=== PATIENT | female | born 1985 | race Caucasian/White ===

== ENCOUNTER 2022-05-24 11:42 | Emergency (ER) | payer MEDICAID ==
[~2022-05-24] VITALS: Ht 160 cm; Wt 91.4 kg
[2022-05-24] MEDS ORDERED: TRAZ-252 PO (12:21)
[2022-05-24] MEDS ORDERED: FAMO10TA50 PO (12:21)
[2022-05-24] MEDS ORDERED: ALBU2.5V10 INH (12:21)
[2022-05-24] MEDS ORDERED: PRAZ1CAP PO (12:21)
[2022-05-24] MEDS ORDERED: SERO1TAB3 PO (12:21)
[2022-05-24] MEDS ORDERED: CYMB1CAP4 PO (12:21)
[2022-05-24] MEDS ORDERED: KETOROLAC 30 MG/ML 1ML VIAL IV ONE (14:20)
[2022-05-24] MEDS ORDERED: ACETAMINOPHEN 500 MG TAB PO ONE (14:20)
[2022-05-24] MEDS ORDERED: NAPR-837 PO (15:34)
[2022-05-24 16:38] VITALS: BP 122/82
== END 2022-05-24 16:40 | disposition home or self-care (01) ==
LOC: EDBD 11:42 → M ED 11:42
DX: S69.91XA Unspecified injury of right wrist, hand and finger(s), initial encounter (principal); S70.02XA Contusion of left hip, initial encounter; S43.402A Unspecified sprain of left shoulder joint, initial encounter; W00.0XXA Fall on same level due to ice and snow, initial encounter; F17.200 Nicotine dependence, unspecified, uncomplicated; Z88.0 Allergy status to penicillin; Z88.8 Allergy status to other drugs, medicaments and biological substances; Z91.030 Bee allergy status; Z79.51 Long term (current) use of inhaled steroids; Z79.899 Other long term (current) drug therapy

== ENCOUNTER 2022-05-28 12:44 | Emergency (ER) | payer MEDICAID, OTHER ==
[~2022-05-28] VITALS: Ht 157.5 cm; Wt 93.9 kg
[~2022-05-28 12:44] MED LIST: ALBU2.5V10 INH; CYMB1CAP4 PO; FAMO10TA50 PO; NAPR-837 PO; PRAZ1CAP PO; SERO1TAB3 PO; TRAZ-252 PO
[2022-05-28] MEDS ORDERED: BACITRACIN OINTMENT 30GM TUBE TOP STA (17:23)
[2022-05-28] MEDS ORDERED: KETOROLAC 60MG 2ML VIAL IM ONE (17:25)
[2022-05-28] MEDS ORDERED: LIDOCAINE 5% (LIDODERM) PATCH TD ONE (17:25)
[2022-05-28] MEDS ORDERED: GNP650TA8 PO (17:55)
[2022-05-28] MEDS ORDERED: BACI500O8 TOP (17:55)
[2022-05-28] MEDS ORDERED: ASPE4PAD TOP (17:55)
[2022-05-28 18:06] VITALS: BP 129/75
== END 2022-05-28 18:26 | disposition home or self-care (01) ==
LOC: M ED 12:44
DX: S90.811A Abrasion, right foot, initial encounter (principal); M25.512 Pain in left shoulder; M25.552 Pain in left hip; W01.0XXA Fall on same level from slipping, tripping and stumbling without subsequent striking against object, initial encounter; F90.9 Attention-deficit hyperactivity disorder, unspecified type; F17.200 Nicotine dependence, unspecified, uncomplicated; F12.10 Cannabis abuse, uncomplicated; F32.A Depression, unspecified; Z88.0 Allergy status to penicillin; Z91.030 Bee allergy status; Z91.048 Other nonmedicinal substance allergy status; Z79.1 Long term (current) use of non-steroidal anti-inflammatories (NSAID); Z79.52 Long term (current) use of systemic steroids; Z79.899 Other long term (current) drug therapy

== ENCOUNTER 2022-05-31 16:56 | Inpatient (IN) | payer OTHER ==
[~2022-05-31] VITALS: Ht 160 cm; Wt 93.3 kg
[~2022-05-31 16:56] MED LIST changes: +ASPE4PAD TOP; +BACI500O8 TOP; +GNP650TA8 PO
[2022-05-31] MEDS ORDERED: diphenhydrAMINE 50MG CAP PO ONE (19:50)
[2022-05-31] MEDS ORDERED: ACETAMINOPHEN TAB 650MG DOSE (2X325MG) PO ONE (19:50)
[2022-05-31 20:02] LABS: HEMATOCRIT 44.8 % (36.0-47.0); HEMOGLOBIN 14.3 g/dl (12.0-15.5); MEAN CORPUSCULAR HEMOGLOBIN 29.8 pg (27.0-33.0); MEAN CORPUSCULAR HGB CONC 31.9 g/dl (32.0-36.5); MEAN CORPUSCULAR VOLUME 93.3 fl (80.0-96.0); PLATELET COUNT, AUTOMATED 228 10^3/uL (150-450); WHITE BLOOD COUNT 11.7 10^3/uL (4.0-10.0)
[2022-05-31 20:08] LABS: ETHYL ALCOHOL (ETHANOL) 0.003 % (0.000-0.010); HCG, SERUM QUALITATIVE NEGATIVE (NEGATIVE)
[2022-05-31 20:09] LABS: ACETAMINOPHEN LEVEL < 2.0 UG/ML (10.0-20.0)
[2022-05-31 20:10] LABS: ALKALINE PHOSPHATASE 70 U/L (46-116); ALT/SGPT 15 U/L (7.0-40); AST/SGOT 22 U/L (<34); BILIRUBIN,DIRECT < 0.1 MG/DL (<0.4); BILIRUBIN,TOTAL 0.4 MG/DL (0.3-1.2); BLOOD UREA NITROGEN 10 MG/DL (9-23); CALCIUM LEVEL 9.5 MG/DL (8.5-10.1); CARBON DIOXIDE LEVEL 28 MMOL/L (20-31); CHLORIDE LEVEL 104 MMOL/L (98-107); CREATININE FOR GFR 0.81 MG/DL (0.55-1.30); GLOMERULAR FILTRATION RATE > 60.0 (>60); GLUCOSE, FASTING 83 MG/DL (60-100); POTASSIUM SERUM 4.2 MMOL/L (3.5-5.1); SALICYLATE LEVEL < 3.0 MG/DL (<30); SODIUM LEVEL 139 MMOL/L (136-145); TOTAL PROTEIN 7.4 G/DL (5.7-8.2)
[2022-05-31 20:23] LABS: AMPHETAMINES LEVEL URINE NEGATIVE (NEGATIVE); BARBITURATES URINE NEGATIVE (NEGATIVE); BENZODIAZEPINES URINE NEGATIVE (NEGATIVE); COCAINE METABOLITE URINE NEGATIVE (NEGATIVE); METHADONE URINE NEGATIVE (NEGATIVE); OPIATES URINE NEGATIVE (NEGATIVE); PHENCYCLIDINE URINE NEGATIVE (NEGATIVE)
[2022-05-31 20:26] LABS: CANNABINOIDS URINE POSITIVE (NEGATIVE)
[2022-05-31 20:35] LABS: RSV AMPLIFICATION NEGATIVE (NEGATIVE)
[2022-05-31] MEDS: traZODone 100 MG TAB PO SCH (21:00)
[2022-05-31] MEDS: QUEtiapine FUMARATE 100 MG TAB PO SCH (21:00)
[2022-05-31] MEDS: PRAZOSIN 1 MG CAP PO SCH (21:00)
[2022-05-31] MEDS ORDERED: ALBU8.5H INH (21:21)
[2022-05-31] MEDS ORDERED: FAMO10TA52 PO (21:21)
[2022-05-31] MEDS ORDERED: DULO30CA47 PO (21:21)
[2022-05-31] MEDS ORDERED: QUET100T2 PO (21:21)
[2022-05-31] MEDS ORDERED: LIDO1PAD TOP (21:21)
[2022-05-31] MEDS ORDERED: HYDR50TA70 PO (21:23)
[2022-05-31] MEDS ORDERED: CLONI1TA PO (21:23)
[2022-05-31] MEDS ORDERED: HOME MED LIST COMPLETE! XX SCH (21:25)
[2022-05-31] MEDS ORDERED: med rec comment (21:25)
[2022-05-31] MEDS: hydrOXYzine 50 MG TAB PO SCH (22:00)
[2022-05-31] MEDS ORDERED: MAALOX 30 ML SUSP *UDC PO PRN (22:10)
[2022-05-31] MEDS ORDERED: ALBUTEROL 90 MCG/ACT 8GM HFA INHALER INH PRN (22:10)
[2022-05-31] MEDS ORDERED: MOM 30ML SUSPENSION UDC PO PRN (22:10)
[2022-05-31] MEDS ORDERED: OLANZapine ORAL DISINTEGRATING TAB 5MG PO PRN (22:10)
[2022-05-31] MEDS ORDERED: cloNIDine 0.1MG TABLET PO PRN (22:10)
[2022-05-31] MEDS ORDERED: traZODone 100 MG TAB PO PRN (22:10)
[2022-06-01 02:01] VITALS: BP 117/60
[2022-06-01] MEDS: hydrOXYzine 50 MG TAB PO SCH ×3 (05:47→21:31)
[2022-06-01] MEDS: DULoxetine 30MG CAPSULE (CYMBALTA) PO SCH (09:59)
[2022-06-01] MEDS: PANTOPRAZOLE 20 MG TAB PO SCH (09:59)
[2022-06-01] MEDS: NICOTINE 21MG/24HR 1 EA TRANSDERMAL TD SCH (09:59)
[2022-06-01] MEDS: LIDOCAINE 5% (LIDODERM) PATCH TOP SCH (10:04)
[2022-06-01] MEDS: NAPROXEN 250 MG TAB PO PRN (13:19)
[2022-06-01 14:29] LABS: ALBUMIN 3.3 G/DL (3.2-5.2); ALKALINE PHOSPHATASE 61 U/L (46-116); ALT/SGPT 12 U/L (7.0-40); AST/SGOT 15 U/L (<34); BILIRUBIN,TOTAL 0.5 MG/DL (0.3-1.2); BLOOD UREA NITROGEN 10 MG/DL (9-23); CALCIUM LEVEL 9.3 MG/DL (8.5-10.1); CARBON DIOXIDE LEVEL 28 MMOL/L (20-31); CHLORIDE LEVEL 108 MMOL/L (98-107); CREATININE FOR GFR 0.84 MG/DL (0.55-1.30); GLOMERULAR FILTRATION RATE > 60.0 (>60); GLUCOSE, FASTING 85 MG/DL (60-100); POTASSIUM SERUM 4.1 MMOL/L (3.5-5.1); SODIUM LEVEL 141 MMOL/L (136-145)
[2022-06-01 20:25] VITALS: BP 112/60
[2022-06-01] MEDS: traZODone 100 MG TAB PO SCH (21:00)
[2022-06-01] MEDS: PRAZOSIN 1 MG CAP PO SCH (21:31)
[2022-06-01] MEDS: QUEtiapine FUMARATE 100 MG TAB PO SCH (21:31)
[2022-06-02] MEDS: hydrOXYzine 50 MG TAB PO SCH ×3 (06:04→21:40)
[2022-06-02 06:06] VITALS: BP 101/63
[2022-06-02] MEDS: DULoxetine 30MG CAPSULE (CYMBALTA) PO SCH (08:18)
[2022-06-02] MEDS: PANTOPRAZOLE 20 MG TAB PO SCH (08:18)
[2022-06-02] MEDS: NICOTINE 21MG/24HR 1 EA TRANSDERMAL TD SCH (08:18)
[2022-06-02] MEDS: LIDOCAINE 5% (LIDODERM) PATCH TOP SCH (08:19)
[2022-06-02] MEDS: NAPROXEN 250 MG TAB PO PRN (12:23)
[2022-06-02 17:24] VITALS: BP 104/67
[2022-06-02] MEDS: PRAZOSIN 1 MG CAP PO SCH (21:40)
[2022-06-02] MEDS: QUEtiapine FUMARATE 100 MG TAB PO SCH (21:40)
[2022-06-02] MEDS: traZODone 100 MG TAB PO SCH (21:40)
[2022-06-03] MEDS: hydrOXYzine 50 MG TAB PO SCH ×3 (06:01→21:28)
[2022-06-03 06:18] VITALS: BP 106/55
[2022-06-03] MEDS: NICOTINE 21MG/24HR 1 EA TRANSDERMAL TD SCH (08:11)
[2022-06-03] MEDS: DULoxetine 30MG CAPSULE (CYMBALTA) PO SCH (08:13)
[2022-06-03] MEDS: PANTOPRAZOLE 20 MG TAB PO SCH (08:15)
[2022-06-03] MEDS: LIDOCAINE 5% (LIDODERM) PATCH TOP SCH (09:49)
[2022-06-03 16:38] VITALS: BP 106/57
[2022-06-03] MEDS: NAPROXEN 250 MG TAB PO PRN (18:13)
[2022-06-03] MEDS: PRAZOSIN 1 MG CAP PO SCH (20:26)
[2022-06-03] MEDS: traZODone 100 MG TAB PO SCH (20:27)
[2022-06-03] MEDS: QUEtiapine FUMARATE 100 MG TAB PO SCH (20:27)
[2022-06-03] MEDS: ACETAMINOPHEN TAB 650MG DOSE (2X325MG) PO PRN (21:28)
[2022-06-04] MEDS: hydrOXYzine 50 MG TAB PO SCH ×3 (05:39→22:25)
[2022-06-04 06:24] VITALS: BP 91/56
[2022-06-04] MEDS: NICOTINE 21MG/24HR 1 EA TRANSDERMAL TD SCH (07:56)
[2022-06-04] MEDS: DULoxetine 30MG CAPSULE (CYMBALTA) PO SCH (07:57)
[2022-06-04] MEDS: PANTOPRAZOLE 20 MG TAB PO SCH (07:57)
[2022-06-04] MEDS: LIDOCAINE 5% (LIDODERM) PATCH TOP SCH (07:57)
[2022-06-04] MEDS: NAPROXEN 250 MG TAB PO PRN (13:13)
[2022-06-04 16:10] VITALS: BP 108/77
[2022-06-04] MEDS: ACETAMINOPHEN TAB 650MG DOSE (2X325MG) PO PRN (19:24)
[2022-06-04] MEDS: QUEtiapine FUMARATE 100 MG TAB PO SCH (20:37)
[2022-06-04] MEDS: traZODone 100 MG TAB PO SCH (20:37)
[2022-06-04] MEDS: PRAZOSIN 1 MG CAP PO SCH (20:38)
[2022-06-05] MEDS ORDERED: hydrOXYzine 50 MG TAB As Ordered ONE (06:04)
[2022-06-05] MEDS: hydrOXYzine 50 MG TAB PO SCH ×3 (06:05→22:13)
[2022-06-05 06:34] VITALS: BP 100/64
[2022-06-05] MEDS: PANTOPRAZOLE 20 MG TAB PO SCH (08:23)
[2022-06-05] MEDS: NICOTINE 21MG/24HR 1 EA TRANSDERMAL TD SCH (08:24)
[2022-06-05] MEDS: DULoxetine 30MG CAPSULE (CYMBALTA) PO SCH (08:24)
[2022-06-05] MEDS: LIDOCAINE 5% (LIDODERM) PATCH TOP SCH (08:25)
[2022-06-05] MEDS: NAPROXEN 250 MG TAB PO PRN (16:58)
[2022-06-05 18:17] VITALS: BP 108/67
[2022-06-05 20:21] VITALS: BP 124/72
[2022-06-05] MEDS: PRAZOSIN 1 MG CAP PO SCH (20:21)
[2022-06-05] MEDS: traZODone 100 MG TAB PO SCH (20:21)
[2022-06-05] MEDS: QUEtiapine FUMARATE 100 MG TAB PO SCH (20:21)
[2022-06-06] MEDS: hydrOXYzine 50 MG TAB PO SCH (06:03)
[2022-06-06 06:22] VITALS: BP 101/57
[2022-06-06] MEDS ORDERED: ALBU8.5H INH (08:10)
[2022-06-06] MEDS ORDERED: PRAZ2CAP PO (08:10)
[2022-06-06] MEDS ORDERED: TRAZ-257 PO (08:10)
[2022-06-06] MEDS ORDERED: QUET100T2 PO (08:10)
[2022-06-06] MEDS ORDERED: DULO30CA47 PO (08:10)
[2022-06-06] MEDS ORDERED: FAMO10TA52 PO (08:10)
[2022-06-06] MEDS ORDERED: LIDO1PAD TOP (08:11)
[2022-06-06] MEDS ORDERED: CLONI1TA PO (08:11)
[2022-06-06] MEDS ORDERED: NICO21PAT TD (08:11)
[2022-06-06] MEDS: NICOTINE 21MG/24HR 1 EA TRANSDERMAL TD SCH (09:00)
[2022-06-06] MEDS: PANTOPRAZOLE 20 MG TAB PO SCH (09:09)
[2022-06-06] MEDS: LIDOCAINE 5% (LIDODERM) PATCH TOP SCH (09:10)
[2022-06-06] MEDS: DULoxetine 30MG CAPSULE (CYMBALTA) PO SCH (09:10)
[2022-06-06] MEDS: ACETAMINOPHEN TAB 650MG DOSE (2X325MG) PO PRN (10:26)
== END 2022-06-06 12:33 | disposition home or self-care (01) | DRG 755 ==
LOC: EDBD 16:56 → M ED 16:56 → M ED INP 22:06 → M PSY 06-01 01:21
PROVIDERS: ADMIT Psychiatry & Neurology Psychiatry; ATTEND Psychiatry & Neurology Psychiatry
DX: F43.10 Post-traumatic stress disorder, unspecified (principal); F11.20 Opioid dependence, uncomplicated; M41.9 Scoliosis, unspecified; F14.20 Cocaine dependence, uncomplicated; F15.20 Other stimulant dependence, uncomplicated; R45.851 Suicidal ideations; F31.9 Bipolar disorder, unspecified; F60.3 Borderline personality disorder; Z62.810 Personal history of physical and sexual abuse in childhood; Z91.51 Personal history of suicidal behavior; Z59.01 Sheltered homelessness; Z56.0 Unemployment, unspecified; J45.909 Unspecified asthma, uncomplicated; H33.21 Serous retinal detachment, right eye; N32.81 Overactive bladder; M54.30 Sciatica, unspecified side; M16.0 Bilateral primary osteoarthritis of hip; M47.9 Spondylosis, unspecified; F19.24 Other psychoactive substance dependence with psychoactive substance-induced mood disorder; F17.200 Nicotine dependence, unspecified, uncomplicated; M25.531 Pain in right wrist; S09.22XD Traumatic rupture of left ear drum, subsequent encounter; H54.61 Unqualified visual loss, right eye, normal vision left eye; Z81.3 Family history of other psychoactive substance abuse and dependence; Z91.52 Personal history of nonsuicidal self-harm; Z88.0 Allergy status to penicillin; Z79.899 Other long term (current) drug therapy; Z91.018 Allergy to other foods; Z88.8 Allergy status to other drugs, medicaments and biological substances; Z91.030 Bee allergy status

== ENCOUNTER 2022-07-03 22:43 | Emergency (ER) | payer OTHER ==
[~2022-07-03] VITALS: Ht 160 cm; Wt 95.4 kg
[~2022-07-03 22:43] MED LIST changes: +ALBU8.5H INH; +CLONI1TA PO; +DULO1CAP6 PO; +DULO30CA47 PO; +DULO30CA9 PO; +FAMO10TA52 PO; +HYDR50TA70 PO; +LIDO1PAD TOP; +NICO21PAT TD; +PRAZ2CAP PO; +QUET100T2 PO; +TRAZ-257 PO; +med rec comment
[2022-07-03 22:44] VITALS: BP 127/92
[2022-07-04] MEDS ORDERED: CEPHALEXIN 500 MG CAP PO ONE (03:25)
[2022-07-04] MEDS ORDERED: CEPH500C PO (03:33)
== END 2022-07-04 03:45 | disposition home or self-care (01) ==
LOC: M ED 22:43
DX: H72.2X2 Other marginal perforations of tympanic membrane, left ear (principal); F17.200 Nicotine dependence, unspecified, uncomplicated; Z79.899 Other long term (current) drug therapy; Z88.0 Allergy status to penicillin; Z88.3 Allergy status to other anti-infective agents; Z91.018 Allergy to other foods; Z91.013 Allergy to seafood; Z91.030 Bee allergy status

== ENCOUNTER → 2022-07-10 | Outpatient (REF) | payer OTHER ==
[~2022-07-10] MED LIST changes: +CEPH500C PO
== END ==
LOC: M LAB REF 16:24
PROVIDERS: ATTEND Nurse Practitioner Family
DX: J02.9 Acute pharyngitis, unspecified (principal)

== ENCOUNTER → 2022-07-14 | Outpatient (REF) | payer OTHER, MEDICAID | LOC: M LAB REF 17:21 | PROVIDERS: ATTEND Physician Assistant Medical | DX: H92.12 Otorrhea, left ear (principal) ==

== ENCOUNTER 2022-07-20 05:56 | Inpatient (IN) | payer OTHER, MEDICAID ==
[~2022-07-20] VITALS: Ht 160 cm; Wt 95.5 kg
[2022-07-20 06:15] LABS: BASO % 0.4 % (0.0-1.0); EOS # 0.6 10^3/uL (0.0-0.5); EOS % 6.2 % (0.0-3.0); HEMATOCRIT 43.1 % (36.0-47.0); HEMOGLOBIN 14.3 g/dl (12.0-15.5); LYMPH # 2.4 10^3/uL (1.5-5.0); LYMPH % 23.3 % (24.0-44.0); MEAN CORPUSCULAR HEMOGLOBIN 30.1 pg (27.0-33.0); MEAN CORPUSCULAR HGB CONC 33.2 g/dl (32.0-36.5); MEAN CORPUSCULAR VOLUME 90.7 fl (80.0-96.0); MONO # 0.6 10^3/uL (0.0-0.8); MONO % 6.1 % (2.0-8.0); NEUTROPHILS # 6.5 10^3/uL (1.5-8.5); NEUTROPHILS % 63.7 % (36.0-66.0); PLATELET COUNT, AUTOMATED 205 10^3/uL (150-450); RED BLOOD COUNT 4.75 10^6/uL (4.00-5.40); WHITE BLOOD COUNT 10.3 10^3/uL (4.0-10.0)
[2022-07-20 06:19] LABS: ABG HCO3 21.2 MEQ/L (22.0-26.0); ABG PARTIAL PRESSURE CO2 35.2 mmHg (35.0-45.0); ABG PARTIAL PRESSURE O2 77.3 mmHg (75.0-100.0); ABG TOTAL CO2 22.2 MEQ/L (22.0-29.0); ABG pH (ARTERIAL) 7.397 UNITS (7.350-7.450)
[2022-07-20] MEDS: IPRATROPIUM 0.5MG/ALBUTEROL 2.5MG INH SOL UD 3ML (DUONEB) NEB SCH ×5 (06:23→19:40)
[2022-07-20 06:35] LABS: CK-MB VALUE MASS < 1.0 NG/ML (<3.6)
[2022-07-20 06:37] LABS: ALBUMIN 3.4 G/DL (3.2-5.2); ALKALINE PHOSPHATASE 84 U/L (46-116); ALT/SGPT 16 U/L (7.0-40); AST/SGOT 12 U/L (<34); BILIRUBIN,DIRECT 0.2 MG/DL (<0.4); BILIRUBIN,TOTAL 0.6 MG/DL (0.3-1.2); BLOOD UREA NITROGEN 7 MG/DL (9-23); CARBON DIOXIDE LEVEL 24 MMOL/L (20-31); CHLORIDE LEVEL 109 MMOL/L (98-107); CPK CREATINE PHOSPHOKINASE 53 U/L (34-145); CREATININE FOR GFR 0.81 MG/DL (0.55-1.30); GLOMERULAR FILTRATION RATE > 60.0 (>60); GLUCOSE, FASTING 97 MG/DL (60-100); MB/CK RELATIVE INDEX 1.88 (< OR =4); POTASSIUM SERUM 3.8 MMOL/L (3.5-5.1); SODIUM LEVEL 141 MMOL/L (136-145); TOTAL PROTEIN 6.2 G/DL (5.7-8.2)
[2022-07-20] MEDS ORDERED: NS 1,000 ML IV ONE (06:55)
[2022-07-20 08:01] LABS: CK-MB VALUE MASS < 1.0 NG/ML (<3.6)
[2022-07-20 08:02] LABS: CPK CREATINE PHOSPHOKINASE 50 U/L (34-145)
[2022-07-20 10:14] VITALS: O2SAT 96
[2022-07-20] MEDS ORDERED: ACETAMINOPHEN 500 MG TAB PO ONE (10:30)
[2022-07-20 10:41] LABS: CK-MB VALUE MASS < 1.0 NG/ML (<3.6)
[2022-07-20] MEDS ORDERED: IPRATROPIUM 0.5MG/ALBUTEROL 2.5MG INH SOL UD 3ML (DUONEB) NEB PRN (11:10)
[2022-07-20 11:27] LABS: CPK CREATINE PHOSPHOKINASE 46 U/L (34-145); MB/CK RELATIVE INDEX 2.17 (< OR =4)
[2022-07-20] MEDS ORDERED: MAG SULF 1GM/100ML (MAG RUN) 1 GM in IV 1 EA IV ONE ×2 (11:30→12:00)
[2022-07-20] MEDS: NICOTINE 21MG/24HR 1 EA TRANSDERMAL TD SCH (12:05)
[2022-07-20] MEDS ORDERED: DOXY100C3 PO (13:01)
[2022-07-20] MEDS ORDERED: QUET100T2 PO (13:01)
[2022-07-20] MEDS ORDERED: FLUTISP NARES (13:01)
[2022-07-20] MEDS ORDERED: OFLOSO OTIC (13:01)
[2022-07-20] MEDS ORDERED: LIDO5TD TOP (13:01)
[2022-07-20] MEDS ORDERED: VENTAER INH (13:01)
[2022-07-20] MEDS ORDERED: CLON-412 PO (13:01)
[2022-07-20] MEDS ORDERED: TRAZ-257 PO (13:01)
[2022-07-20] MEDS ORDERED: PRAZ2CAP PO (13:01)
[2022-07-20] MEDS ORDERED: MUPI2OI TOP (13:01)
[2022-07-20] MEDS ORDERED: ACET-683 PO (13:01)
[2022-07-20] MEDS ORDERED: DULO30CA9 PO (13:01)
[2022-07-20] MEDS ORDERED: HOME MED LIST COMPLETE! XX SCH (13:05)
[2022-07-20] MEDS ORDERED: cloNIDine 0.1MG TABLET PO PRN (13:30)
[2022-07-20] MEDS ORDERED: FLUTICASONE PROP 0.05% NASAL SPRAY 16 GM (FLONASE) NARES PRN (13:30)
[2022-07-20 14:51] VITALS: BP 117/76
[2022-07-20] MEDS: ACETAMINOPHEN 500 MG TAB PO PRN (15:20)
[2022-07-20] MEDS: RIVAROXABAN 10MG TAB (XARELTO) PO SCH (18:12)
[2022-07-20] MEDS: MUPIROCIN 2% OINT 22 GM TUBE TOP SCH ×2 (18:13→20:19)
[2022-07-20 20:00] VITALS: BP 142/78
[2022-07-20] MEDS: methylPREDNISolone 40MG 1ML VIAL IV SCH (20:18)
[2022-07-20] MEDS: QUEtiapine FUMARATE 100 MG TAB PO SCH (20:19)
[2022-07-20] MEDS: CIPRODEX OTIC SUSP 7.5ML AS SCH (20:19)
[2022-07-20] MEDS: PRAZOSIN 1 MG CAP PO SCH (20:20)
[2022-07-20] MEDS: KETOROLAC 30 MG/ML 1ML VIAL IV PRN (20:20)
[2022-07-20] MEDS: traZODone 100 MG TAB PO SCH (20:21)
[2022-07-20] MEDS: DOXYCYCLINE HYCLATE 100MG TABLET PO SCH (20:21)
[2022-07-20] MEDS ORDERED: NS 500 ML IV ONE (20:40)
[2022-07-20] MEDS ORDERED: OFLOXACIN 0.3 % (OCUFLOX) OPTH SOL 5ML XX SCH (21:00)
[2022-07-21] MEDS: IPRATROPIUM 0.02% SOLN 0.5MG 2.5ML NEB INH SCH ×4 (02:02→19:05)
[2022-07-21] MEDS: LEVALBUTEROL 1.25MG 0.5ML CONCENTRATE NEB INH SCH ×4 (02:02→19:05)
[2022-07-21 06:00] VITALS: BP 112/68
[2022-07-21 06:34] LABS: HEMATOCRIT 38.2 % (36.0-47.0); HEMOGLOBIN 12.6 g/dl (12.0-15.5); MEAN CORPUSCULAR HEMOGLOBIN 29.6 pg (27.0-33.0); MEAN CORPUSCULAR VOLUME 89.9 fl (80.0-96.0); PLATELET COUNT, AUTOMATED 197 10^3/uL (150-450); RED BLOOD COUNT 4.25 10^6/uL (4.00-5.40); WHITE BLOOD COUNT 9.6 10^3/uL (4.0-10.0)
[2022-07-21 06:52] LABS: INR 1.18; PROTHROMBIN TIME 15.3 SECONDS (12.5-14.5)
[2022-07-21 06:59] LABS: BLOOD UREA NITROGEN 9 MG/DL (9-23); CALCIUM LEVEL 7.6 MG/DL (8.5-10.1); CARBON DIOXIDE LEVEL 22 MMOL/L (20-31); CHLORIDE LEVEL 111 MMOL/L (98-107); CREATININE FOR GFR 0.65 MG/DL (0.55-1.30); GLOMERULAR FILTRATION RATE > 60.0 (>60); GLUCOSE, FASTING 147 MG/DL (60-100); SODIUM LEVEL 142 MMOL/L (136-145)
[2022-07-21] MEDS: MUPIROCIN 2% OINT 22 GM TUBE TOP SCH ×3 (08:34→20:04)
[2022-07-21] MEDS: CIPRODEX OTIC SUSP 7.5ML AS SCH ×2 (08:34→20:05)
[2022-07-21] MEDS: LIDOCAINE 5% (LIDODERM) PATCH TOP SCH (08:35)
[2022-07-21] MEDS: NICOTINE 21MG/24HR 1 EA TRANSDERMAL TD SCH (08:36)
[2022-07-21] MEDS: DOXYCYCLINE HYCLATE 100MG TABLET PO SCH ×2 (08:36→20:04)
[2022-07-21] MEDS: DULoxetine 30MG CAPSULE (CYMBALTA) PO SCH (08:36)
[2022-07-21] MEDS: methylPREDNISolone 40MG 1ML VIAL IV SCH ×2 (08:36→20:03)
[2022-07-21] MEDS: PANTOPRAZOLE 40MG TAB (PROTONIX) PO SCH (08:36)
[2022-07-21] MEDS: ACETAMINOPHEN 500 MG TAB PO PRN ×3 (08:39→20:04)
[2022-07-21] MEDS: KETOROLAC 30 MG/ML 1ML VIAL IV PRN ×2 (10:31→17:29)
[2022-07-21 14:00] VITALS: BP 128/82
[2022-07-21] MEDS: RIVAROXABAN 10MG TAB (XARELTO) PO SCH (17:29)
[2022-07-21 20:00] VITALS: BP 144/87
[2022-07-21] MEDS: traZODone 100 MG TAB PO SCH (20:04)
[2022-07-21] MEDS: QUEtiapine FUMARATE 100 MG TAB PO SCH (20:04)
[2022-07-21 20:07] VITALS: BP 144/77
[2022-07-21] MEDS: PRAZOSIN 1 MG CAP PO SCH (20:07)
[2022-07-22] MEDS: IPRATROPIUM 0.02% SOLN 0.5MG 2.5ML NEB INH SCH ×2 (01:24→07:15)
[2022-07-22] MEDS: LEVALBUTEROL 1.25MG 0.5ML CONCENTRATE NEB INH SCH ×2 (01:24→07:15)
[2022-07-22 04:56] VITALS: BP 121/71
[2022-07-22] MEDS: ACETAMINOPHEN 500 MG TAB PO PRN (05:06)
[2022-07-22 07:35] LABS: HEMATOCRIT 40.9 % (36.0-47.0); HEMOGLOBIN 12.9 g/dl (12.0-15.5); MEAN CORPUSCULAR HEMOGLOBIN 29.2 pg (27.0-33.0); MEAN CORPUSCULAR HGB CONC 31.5 g/dl (32.0-36.5); MEAN CORPUSCULAR VOLUME 92.5 fl (80.0-96.0); PLATELET COUNT, AUTOMATED 209 10^3/uL (150-450); RED BLOOD COUNT 4.42 10^6/uL (4.00-5.40); WHITE BLOOD COUNT 12.7 10^3/uL (4.0-10.0)
[2022-07-22 07:44] LABS: INR 1.1; PROTHROMBIN TIME 14.4 SECONDS (12.5-14.5)
[2022-07-22 08:10] LABS: BLOOD UREA NITROGEN 17 MG/DL (9-23); CALCIUM LEVEL 8.3 MG/DL (8.5-10.1); CARBON DIOXIDE LEVEL 23 MMOL/L (20-31); CHLORIDE LEVEL 110 MMOL/L (98-107); CREATININE FOR GFR 0.74 MG/DL (0.55-1.30); GLOMERULAR FILTRATION RATE > 60.0 (>60); GLUCOSE, FASTING 141 MG/DL (60-100); POTASSIUM SERUM 4.1 MMOL/L (3.5-5.1); SODIUM LEVEL 142 MMOL/L (136-145)
[2022-07-22] MEDS: PANTOPRAZOLE 40MG TAB (PROTONIX) PO SCH (08:20)
[2022-07-22] MEDS: methylPREDNISolone 40MG 1ML VIAL IV SCH (08:20)
[2022-07-22] MEDS: DULoxetine 30MG CAPSULE (CYMBALTA) PO SCH (08:20)
[2022-07-22] MEDS: NICOTINE 21MG/24HR 1 EA TRANSDERMAL TD SCH (08:20)
[2022-07-22] MEDS: LIDOCAINE 5% (LIDODERM) PATCH TOP SCH (08:20)
[2022-07-22] MEDS: DOXYCYCLINE HYCLATE 100MG TABLET PO SCH (08:21)
[2022-07-22] MEDS: CIPRODEX OTIC SUSP 7.5ML AS SCH (08:21)
[2022-07-22] MEDS: MUPIROCIN 2% OINT 22 GM TUBE TOP SCH (08:21)
[2022-07-22] MEDS ORDERED: IBUPROFEN 400MG TAB PO ONE (11:00)
[2022-07-22] MEDS ORDERED: PRED10TA2 PO (11:16)
[2022-07-22] MEDS ORDERED: ADV250INH INH (11:16)
[2022-07-22] MEDS ORDERED: VENTAER INH (12:33)
== END 2022-07-22 13:21 | disposition home or self-care (01) | DRG 141 ==
LOC: M ED 05:56 → EDBD 05:56 → M ED INP 11:13 → ENRESERV 13:31 → M MSPAV 14:55
PROVIDERS: ADMIT Internal Medicine; ATTEND Internal Medicine
DX: J45.41 Moderate persistent asthma with (acute) exacerbation (principal); M41.9 Scoliosis, unspecified; F32.A Depression, unspecified; F17.200 Nicotine dependence, unspecified, uncomplicated; F90.9 Attention-deficit hyperactivity disorder, unspecified type; F43.10 Post-traumatic stress disorder, unspecified; K21.9 Gastro-esophageal reflux disease without esophagitis; H66.90 Otitis media, unspecified, unspecified ear; L02.429 Furuncle of limb, unspecified; Z79.899 Other long term (current) drug therapy; Z88.0 Allergy status to penicillin; Z88.8 Allergy status to other drugs, medicaments and biological substances; Z91.013 Allergy to seafood; Z91.018 Allergy to other foods; Z91.030 Bee allergy status; B34.8 Other viral infections of unspecified site

== ENCOUNTER 2022-07-28 15:02 | Inpatient (IN) | payer OTHER, MEDICAID ==
[~2022-07-28 15:02] MED LIST changes: +ACET-683 PO; +ADV250INH INH; +CLON-412 PO; +DOXY100C3 PO; +FLUTISP; +LIDO5TD TOP; +MUPI2OI TOP; +OFLOSO AS; +PRED10TA2 PO; +VENTAER INH
[2022-07-28 17:46] LABS: HEMATOCRIT 43.5 % (36.0-47.0); HEMOGLOBIN 14.1 g/dl (12.0-15.5); MEAN CORPUSCULAR HEMOGLOBIN 29.9 pg (27.0-33.0); MEAN CORPUSCULAR HGB CONC 32.4 g/dl (32.0-36.5); MEAN CORPUSCULAR VOLUME 92.2 fl (80.0-96.0); PLATELET COUNT, AUTOMATED 209 10^3/uL (150-450); RED BLOOD COUNT 4.72 10^6/uL (4.00-5.40); WHITE BLOOD COUNT 13.3 10^3/uL (4.0-10.0)
[2022-07-28 17:51] LABS: AMPHETAMINES LEVEL URINE NEGATIVE (NEGATIVE); BARBITURATES URINE NEGATIVE (NEGATIVE); BENZODIAZEPINES URINE NEGATIVE (NEGATIVE); COCAINE METABOLITE URINE NEGATIVE (NEGATIVE); METHADONE URINE NEGATIVE (NEGATIVE); PHENCYCLIDINE URINE NEGATIVE (NEGATIVE)
[2022-07-28 17:52] LABS: OPIATES URINE NEGATIVE (NEGATIVE)
[2022-07-28 17:54] LABS: CANNABINOIDS URINE POSITIVE (NEGATIVE)
[2022-07-28 17:57] LABS: ETHYL ALCOHOL (ETHANOL) < 0.003 % (0.000-0.010)
[2022-07-28 17:59] LABS: SALICYLATE LEVEL < 3.0 MG/DL (<30)
[2022-07-28 18:00] LABS: ACETAMINOPHEN LEVEL < 2.0 UG/ML (10.0-20.0); ALBUMIN 3.2 G/DL (3.2-5.2); ALKALINE PHOSPHATASE 62 U/L (46-116); ALT/SGPT 22 U/L (7.0-40); AST/SGOT 11 U/L (<34); BILIRUBIN,DIRECT 0.2 MG/DL (<0.4); BILIRUBIN,TOTAL 0.5 MG/DL (0.3-1.2); BLOOD UREA NITROGEN 11 MG/DL (9-23); CALCIUM LEVEL 7.9 MG/DL (8.5-10.1); CARBON DIOXIDE LEVEL 26 MMOL/L (20-31); CHLORIDE LEVEL 109 MMOL/L (98-107); CREATININE FOR GFR 0.79 MG/DL (0.55-1.30); GLOMERULAR FILTRATION RATE > 60.0 (>60); GLUCOSE, FASTING 77 MG/DL (60-100); POTASSIUM SERUM 3.6 MMOL/L (3.5-5.1); SODIUM LEVEL 141 MMOL/L (136-145); TOTAL PROTEIN 5.9 G/DL (5.7-8.2)
[2022-07-28 18:02] LABS: THYROID STIMULATING HORMONE 0.715 uIU/ML (0.55-4.78)
[2022-07-28 18:11] LABS: HCG, SERUM QUALITATIVE NEGATIVE (NEGATIVE)
[2022-07-28] MEDS ORDERED: predniSONE 20 MG TAB PO ONE (19:45)
[2022-07-28] MEDS ORDERED: ALBUTEROL 90 MCG/ACT 8GM HFA INHALER INH ONE (19:45)
[2022-07-29] MEDS ORDERED: LIDO2SOL9 SSP (00:49)
[2022-07-29] MEDS ORDERED: PRED10TA2 PO (00:49)
[2022-07-29] MEDS ORDERED: IPRA0.00 INH (00:49)
[2022-07-29] MEDS ORDERED: ADV250INH INH (00:49)
[2022-07-29] MEDS ORDERED: EPIP0.3I2 IM (00:49)
[2022-07-29] MEDS ORDERED: ALBU8.5H INH (00:49)
[2022-07-29] MEDS ORDERED: HOME MED LIST COMPLETE! XX SCH (00:50)
[2022-07-29] MEDS ORDERED: DULoxetine 30MG CAPSULE (CYMBALTA) PO SCH (09:00)
[2022-07-29] MEDS ORDERED: predniSONE 10MG TAB PO SCH (09:00)
[2022-07-29] MEDS ORDERED: MAALOX 30 ML SUSP *UDC PO PRN (13:15)
[2022-07-29] MEDS ORDERED: MOM 30ML SUSPENSION UDC PO PRN (13:15)
[2022-07-29] MEDS ORDERED: IBUPROFEN 400MG TAB PO PRN ×2 (13:15→18:20)
[2022-07-29 14:52] VITALS: BP 129/80
[2022-07-29] MEDS: NICOTINE 21MG/24HR 1 EA TRANSDERMAL TD SCH (16:11)
[2022-07-29] MEDS: IPRATROPIUM 0.5MG/ALBUTEROL 2.5MG INH SOL UD 3ML (DUONEB) NEB SCH ×2 (18:15→19:02)
[2022-07-29] MEDS ORDERED: ACETAMINOPHEN 500 MG TAB PO PRN (18:20)
[2022-07-29] MEDS ORDERED: FLUTICASONE PROP 0.05% NASAL SPRAY 16 GM (FLONASE) PRN (18:25)
[2022-07-29] MEDS ORDERED: cloNIDine 0.1MG TABLET PO PRN ×2 (18:25→20:30)
[2022-07-29] MEDS: QUEtiapine FUMARATE 100 MG TAB PO SCH (20:39)
[2022-07-29] MEDS: DICLOFENAC EPOLAMINE 1.3% PATCH TOP SCH (20:39)
[2022-07-29] MEDS: DOXYCYCLINE HYCLATE 100MG TABLET PO SCH (20:39)
[2022-07-29] MEDS: traZODone 100 MG TAB PO SCH (20:39)
[2022-07-29] MEDS: PRAZOSIN 1 MG CAP PO SCH (20:40)
[2022-07-29] MEDS: ADVAIR HFA 115/21MCG INHALER INH SCH (20:40)
[2022-07-29] MEDS: IBUPROFEN 800 MG TAB PO PRN (20:42)
[2022-07-29] MEDS ORDERED: QUEtiapine FUMARATE 100 MG TAB PO SCH (21:00)
[2022-07-29] MEDS ORDERED: traZODone 100 MG TAB PO SCH (21:00)
[2022-07-29] MEDS ORDERED: PRAZOSIN 1 MG CAP PO SCH (21:00)
[2022-07-30] MEDS: IPRATROPIUM 0.5MG/ALBUTEROL 2.5MG INH SOL UD 3ML (DUONEB) NEB SCH ×4 (02:52→18:00)
[2022-07-30 06:33] VITALS: BP 102/67
[2022-07-30] MEDS: ADVAIR HFA 115/21MCG INHALER INH SCH ×2 (08:32→20:18)
[2022-07-30] MEDS: DICLOFENAC EPOLAMINE 1.3% PATCH TOP SCH ×2 (08:35→21:02)
[2022-07-30] MEDS: LIDOCAINE 5% (LIDODERM) PATCH TD SCH (08:36)
[2022-07-30] MEDS: NICOTINE 21MG/24HR 1 EA TRANSDERMAL TD SCH (08:36)
[2022-07-30] MEDS: DOXYCYCLINE HYCLATE 100MG TABLET PO SCH ×2 (08:39→20:18)
[2022-07-30] MEDS: predniSONE 10MG TAB PO SCH (08:50)
[2022-07-30] MEDS ORDERED: predniSONE 20 MG TAB PO SCH (09:00)
[2022-07-30] MEDS: DULoxetine 30MG CAPSULE (CYMBALTA) PO SCH (11:57)
[2022-07-30 16:32] VITALS: BP 103/66
[2022-07-30] MEDS: IBUPROFEN 800 MG TAB PO PRN (18:50)
[2022-07-30] MEDS: PRAZOSIN 1 MG CAP PO SCH (20:18)
[2022-07-30] MEDS: ARIPiprazole 2 MG TAB PO SCH (20:18)
[2022-07-30] MEDS: QUEtiapine FUMARATE 100 MG TAB PO SCH (20:19)
[2022-07-30] MEDS: traZODone 100 MG TAB PO SCH (20:19)
[2022-07-31] MEDS: IPRATROPIUM 0.5MG/ALBUTEROL 2.5MG INH SOL UD 3ML (DUONEB) NEB SCH ×4 (00:58→20:43)
[2022-07-31 06:53] VITALS: BP 105/69
[2022-07-31] MEDS: ADVAIR HFA 115/21MCG INHALER INH SCH ×2 (07:01→19:35)
[2022-07-31 07:35] LABS: CHOLESTEROL RISK RATIO 3.37 (<5); HDL CHOLESTEROL 46.8 MG/DL (>40); LDL CHOLESTEROL 92.6 MG/DL (<100); NON-HDL-C 111.2 MG/DL
[2022-07-31] MEDS ORDERED: NICOTINE 21MG/24HR 1 EA TRANSDERMAL TD SCH (09:00)
[2022-07-31] MEDS: DICLOFENAC EPOLAMINE 1.3% PATCH TOP SCH ×2 (09:57→22:07)
[2022-07-31] MEDS: predniSONE 10MG TAB PO SCH (09:58)
[2022-07-31] MEDS: DOXYCYCLINE HYCLATE 100MG TABLET PO SCH ×2 (09:58→20:09)
[2022-07-31] MEDS: DULoxetine 30MG CAPSULE (CYMBALTA) PO SCH (09:58)
[2022-07-31] MEDS: NICOTINE 21MG/24HR 1 EA TRANSDERMAL TD SCH (10:00)
[2022-07-31] MEDS: LIDOCAINE 5% (LIDODERM) PATCH TD SCH (10:00)
[2022-07-31] MEDS ORDERED: ALBUTEROL 90 MCG/ACT 8GM HFA INHALER INH PRN (13:45)
[2022-07-31 17:23] VITALS: BP 125/77
[2022-07-31 19:39] VITALS: BP 142/84
[2022-07-31] MEDS: PRAZOSIN 1 MG CAP PO SCH (20:08)
[2022-07-31] MEDS: traZODone 100 MG TAB PO SCH (20:08)
[2022-07-31] MEDS: QUEtiapine FUMARATE 100 MG TAB PO SCH (20:09)
[2022-07-31] MEDS: ARIPiprazole 2 MG TAB PO SCH (20:09)
[2022-08-01] MEDS: IPRATROPIUM 0.5MG/ALBUTEROL 2.5MG INH SOL UD 3ML (DUONEB) NEB SCH ×2 (01:24→08:16)
[2022-08-01 06:12] VITALS: BP 128/63
[2022-08-01] MEDS: predniSONE 10MG TAB PO SCH (08:09)
[2022-08-01] MEDS: DULoxetine 30MG CAPSULE (CYMBALTA) PO SCH (08:09)
[2022-08-01] MEDS: DOXYCYCLINE HYCLATE 100MG TABLET PO SCH (08:09)
[2022-08-01] MEDS: ADVAIR HFA 115/21MCG INHALER INH SCH (08:09)
[2022-08-01] MEDS: LIDOCAINE 5% (LIDODERM) PATCH TD SCH (08:11)
[2022-08-01] MEDS: DICLOFENAC EPOLAMINE 1.3% PATCH TOP SCH (08:11)
[2022-08-01] MEDS: NICOTINE 21MG/24HR 1 EA TRANSDERMAL TD SCH (08:12)
[2022-08-01] MEDS ORDERED: QUET100T2 PO (09:22)
[2022-08-01] MEDS ORDERED: DULO30CA9 PO (09:22)
[2022-08-01] MEDS ORDERED: NICO21PAT TD (09:22)
[2022-08-01] MEDS ORDERED: TRAZ-257 PO (09:22)
[2022-08-01] MEDS ORDERED: PRAZ2CAP PO (09:22)
[2022-08-01] MEDS ORDERED: LIDO5TD TD (09:22)
[2022-08-01] MEDS ORDERED: ABIL1TAB13 PO (09:22)
[2022-08-01] MEDS: IBUPROFEN 800 MG TAB PO PRN (11:25)
== END 2022-08-01 12:04 | disposition home or self-care (01) | DRG 753 ==
LOC: M ED 15:02 → M ED INP 07-29 13:15 → M PSY 07-29 14:56
PROVIDERS: ADMIT Student in an Organized Health Care Education/Training Program; ATTEND Student in an Organized Health Care Education/Training Program
DX: F34.89 Other specified persistent mood disorders (principal); J45.901 Unspecified asthma with (acute) exacerbation; R45.851 Suicidal ideations; F60.3 Borderline personality disorder; F43.10 Post-traumatic stress disorder, unspecified; Z63.0 Problems in relationship with spouse or partner; F17.200 Nicotine dependence, unspecified, uncomplicated; F14.10 Cocaine abuse, uncomplicated; K21.9 Gastro-esophageal reflux disease without esophagitis; F15.10 Other stimulant abuse, uncomplicated; F43.20 Adjustment disorder, unspecified; F12.90 Cannabis use, unspecified, uncomplicated; Z56.0 Unemployment, unspecified; Z79.899 Other long term (current) drug therapy; Z88.0 Allergy status to penicillin; Z88.8 Allergy status to other drugs, medicaments and biological substances; Z91.013 Allergy to seafood; Z91.018 Allergy to other foods; Z91.030 Bee allergy status; Z91.410 Personal history of adult physical and sexual abuse

== ENCOUNTER → 2022-08-15 | Outpatient (CLI) | payer OTHER ==
[~2022-08-15] MED LIST changes: +ABIL1TAB13 PO; +CHLO25TA88; +EPIP0.3I2 IM; +FLUT50SP17; -FLUTISP; +IPRA0.00 INH; +LIDO2SOBTL SSP; +LIDO5TD TD
[2022-08-15 09:25] LABS: HEMATOCRIT 41.2 % (36.0-47.0); HEMOGLOBIN 13.3 g/dl (12.0-15.5); MEAN CORPUSCULAR HEMOGLOBIN 29.8 pg (27.0-33.0); MEAN CORPUSCULAR HGB CONC 32.3 g/dl (32.0-36.5); MEAN CORPUSCULAR VOLUME 92.4 fl (80.0-96.0); PLATELET COUNT, AUTOMATED 207 10^3/uL (150-450); RED BLOOD COUNT 4.46 10^6/uL (4.00-5.40); WHITE BLOOD COUNT 6.7 10^3/uL (4.0-10.0)
[2022-08-15 09:50] LABS: ALKALINE PHOSPHATASE 57 U/L (46-116); ALT/SGPT 26 U/L (7.0-40); AST/SGOT 19 U/L (<34); BILIRUBIN,TOTAL 0.9 MG/DL (0.3-1.2); BLOOD UREA NITROGEN 7 MG/DL (9-23); CALCIUM LEVEL 8.3 MG/DL (8.5-10.1); CARBON DIOXIDE LEVEL 25 MMOL/L (20-31); CHLORIDE LEVEL 108 MMOL/L (98-107); CREATININE FOR GFR 0.71 MG/DL (0.55-1.30); GLOMERULAR FILTRATION RATE > 60.0 (>60); GLUCOSE, FASTING 115 MG/DL (60-100); POTASSIUM SERUM 3.8 MMOL/L (3.5-5.1); SODIUM LEVEL 141 MMOL/L (136-145); TOTAL PROTEIN 5.6 G/DL (5.7-8.2)
[2022-08-15 10:03] LABS: HEPATITIS B SURFACE ANTIGEN NEGATIVE (NEGATIVE)
[2022-08-15 10:16] LABS: HIV 1&2 SCREEN ATELLICA NEGATIVE (NEGATIVE)
[2022-08-15 10:21] LABS: HCG, SERUM QUALITATIVE NEGATIVE (NEGATIVE)
[2022-08-15 10:25] LABS: HEPATITIS C VIRUS ABY INDEX < 0.0 INDEX (<0.8)
[2022-08-15 10:52] LABS: GC DNA AMPLIFICATION NEGATIVE (NEGATIVE)
== END ==
LOC: M LAB 08:14
PROVIDERS: ATTEND Family Medicine
DX: F11.20 Opioid dependence, uncomplicated (principal)

== ENCOUNTER → 2022-08-15 | Outpatient (CLI) | payer OTHER ==
[2022-08-15 09:48] LABS: HEMOGLOBIN A1c 5.2 % (4.0-6.0)
[2022-08-15 09:49] LABS: ALKALINE PHOSPHATASE 56 U/L (46-116); ALT/SGPT 21 U/L (7.0-40); AST/SGOT 19 U/L (<34); BILIRUBIN,TOTAL 0.9 MG/DL (0.3-1.2); BLOOD UREA NITROGEN 8 MG/DL (9-23); CALCIUM LEVEL 8.2 MG/DL (8.5-10.1); CARBON DIOXIDE LEVEL 24 MMOL/L (20-31); CHLORIDE LEVEL 108 MMOL/L (98-107); GLOMERULAR FILTRATION RATE > 60.0 (>60); GLUCOSE, FASTING 115 MG/DL (60-100); POTASSIUM SERUM 3.8 MMOL/L (3.5-5.1); SODIUM LEVEL 140 MMOL/L (136-145); TOTAL PROTEIN 5.5 G/DL (5.7-8.2)
== END ==
LOC: M LAB 08:17
PROVIDERS: ATTEND Registered Nurse Psychiatric/Mental Health
DX: F15.20 Other stimulant dependence, uncomplicated (principal); F14.21 Cocaine dependence, in remission

== ENCOUNTER 2022-08-19 13:33 | Emergency (ER) | payer OTHER ==
[~2022-08-19] VITALS: Ht 160 cm; Wt 100.2 kg
[~2022-08-19 13:33] MED LIST changes: -CHLO25TA88
[2022-08-19] MEDS ORDERED: diphenhydrAMINE 50MG/ML VIAL IV STA (13:45)
[2022-08-19] MEDS ORDERED: NS 1,000 ML IV SCH (13:45)
[2022-08-19 14:12] LABS: BASO % 0.5 % (0.0-1.0); EOS # 0.4 10^3/uL (0.0-0.5); EOS % 5.6 % (0.0-3.0); HEMATOCRIT 42.7 % (36.0-47.0); HEMOGLOBIN 13.7 g/dl (12.0-15.5); LYMPH # 2.5 10^3/uL (1.5-5.0); LYMPH % 39.9 % (24.0-44.0); MEAN CORPUSCULAR HEMOGLOBIN 29.4 pg (27.0-33.0); MEAN CORPUSCULAR HGB CONC 32.1 g/dl (32.0-36.5); MEAN CORPUSCULAR VOLUME 91.6 fl (80.0-96.0); MONO # 0.4 10^3/uL (0.0-0.8); MONO % 6.6 % (2.0-8.0); NEUTROPHILS # 2.9 10^3/uL (1.5-8.5); NEUTROPHILS % 47.2 % (36.0-66.0); PLATELET COUNT, AUTOMATED 192 10^3/uL (150-450); RED BLOOD COUNT 4.66 10^6/uL (4.00-5.40); WHITE BLOOD COUNT 6.2 10^3/uL (4.0-10.0)
[2022-08-19 14:35] LABS: LIPASE 20 U/L (12-53)
[2022-08-19 14:37] LABS: ALBUMIN 3.3 G/DL (3.2-5.2); ALKALINE PHOSPHATASE 56 U/L (46-116); ALT/SGPT 20 U/L (7.0-40); AST/SGOT 21 U/L (<34); BILIRUBIN,DIRECT 0.1 MG/DL (<0.4); BILIRUBIN,TOTAL 0.4 MG/DL (0.3-1.2); TOTAL PROTEIN 5.9 G/DL (5.7-8.2)
[2022-08-19] MEDS ORDERED: CHLO25TA88 (14:55)
[2022-08-19 15:24] LABS: HCG, SERUM QUALITATIVE NEGATIVE (NEGATIVE)
[2022-08-19 16:41] LABS: BLOOD UREA NITROGEN 9 MG/DL (9-23); CALCIUM LEVEL 8.2 MG/DL (8.5-10.1); CARBON DIOXIDE LEVEL 24 MMOL/L (20-31); CHLORIDE LEVEL 109 MMOL/L (98-107); CREATININE FOR GFR 0.74 MG/DL (0.55-1.30); GLOMERULAR FILTRATION RATE > 60.0 (>60); GLUCOSE, FASTING 78 MG/DL (60-100); POTASSIUM SERUM 3.8 MMOL/L (3.5-5.1); SODIUM LEVEL 141 MMOL/L (136-145)
[2022-08-19 17:18] VITALS: BP 101/50
== END 2022-08-19 17:20 | disposition home or self-care (01) ==
LOC: EDBD 13:33 → M ED 13:33
DX: L29.9 Pruritus, unspecified (principal); J45.909 Unspecified asthma, uncomplicated; K21.9 Gastro-esophageal reflux disease without esophagitis; F43.10 Post-traumatic stress disorder, unspecified; F31.9 Bipolar disorder, unspecified; Z91.018 Allergy to other foods; Z88.0 Allergy status to penicillin; Z91.030 Bee allergy status; Z91.013 Allergy to seafood; Z79.51 Long term (current) use of inhaled steroids; Z79.899 Other long term (current) drug therapy
CPT/HCPCS: 80048; 80076; 83690; 84703; 85025; 96374; 99284; J1200

== ENCOUNTER → 2022-09-09 | Outpatient (REF) | payer OTHER ==
[~2022-09-09] MED LIST changes: +CHLO25TA88
[2022-09-09 18:27] LABS: BASO # 0.1 10^3/uL (0.0-0.2); BASO % 0.7 % (0.0-1.0); EOS # 0.7 10^3/uL (0.0-0.5); EOS % 8.5 % (0.0-3.0); HEMATOCRIT 43.1 % (36.0-47.0); HEMOGLOBIN 13.9 g/dl (12.0-15.5); LYMPH # 2.9 10^3/uL (1.5-5.0); LYMPH % 36.4 % (24.0-44.0); MEAN CORPUSCULAR HEMOGLOBIN 29.6 pg (27.0-33.0); MEAN CORPUSCULAR HGB CONC 32.3 g/dl (32.0-36.5); MEAN CORPUSCULAR VOLUME 91.9 fl (80.0-96.0); MONO # 0.5 10^3/uL (0.0-0.8); MONO % 6.6 % (2.0-8.0); NEUTROPHILS # 3.8 10^3/uL (1.5-8.5); NEUTROPHILS % 47.4 % (36.0-66.0); PLATELET COUNT, AUTOMATED 210 10^3/uL (150-450); RED BLOOD COUNT 4.69 10^6/uL (4.00-5.40); WHITE BLOOD COUNT 8.1 10^3/uL (4.0-10.0)
[2022-09-09 18:45] LABS: ALBUMIN 3.2 G/DL (3.2-5.2); ALKALINE PHOSPHATASE 77 U/L (46-116); ALT/SGPT < 9 U/L (7.0-40); AST/SGOT 23 U/L (<34); BILIRUBIN,TOTAL 0.3 MG/DL (0.3-1.2); BLOOD UREA NITROGEN 9 MG/DL (9-23); CALCIUM LEVEL 8.4 MG/DL (8.5-10.1); CARBON DIOXIDE LEVEL 28 MMOL/L (20-31); CHLORIDE LEVEL 106 MMOL/L (98-107); CREATININE FOR GFR 0.88 MG/DL (0.55-1.30); GLOMERULAR FILTRATION RATE > 60.0 (>60); GLUCOSE, FASTING 54 MG/DL (60-100); POTASSIUM SERUM 3.9 MMOL/L (3.5-5.1); SODIUM LEVEL 140 MMOL/L (136-145); TOTAL PROTEIN 5.9 G/DL (5.7-8.2)
== END ==
LOC: M LAB REF 17:38
PROVIDERS: ATTEND Nurse Practitioner Family
DX: Z11.9 Encounter for screening for infectious and parasitic diseases, unspecified (principal); R09.81 Nasal congestion; R22.43 Localized swelling, mass and lump, lower limb, bilateral

== ENCOUNTER 2022-09-12 09:53 | Observation (INO) | payer OTHER ==
[~2022-09-12] VITALS: Ht 157.5 cm; Wt 97.5 kg
[~2022-09-12 09:53] MED LIST changes: -CHLO25TA88; +CHLO25TA88 PO
[2022-09-12] MEDS ORDERED: ONDANSETRON 4MG 2ML VIAL IV ONE ×2 (11:15→13:50)
[2022-09-12] MEDS ORDERED: NS 1,000 ML IV ONE ×2 (11:15→16:50)
[2022-09-12 11:47] LABS: BASO % 0.3 % (0.0-1.0); EOS # 0.2 10^3/uL (0.0-0.5); EOS % 1.8 % (0.0-3.0); HEMATOCRIT 40.9 % (36.0-47.0); HEMOGLOBIN 13.6 g/dl (12.0-15.5); LYMPH # 1.8 10^3/uL (1.5-5.0); LYMPH % 20.2 % (24.0-44.0); MEAN CORPUSCULAR HEMOGLOBIN 30.1 pg (27.0-33.0); MEAN CORPUSCULAR HGB CONC 33.3 g/dl (32.0-36.5); MEAN CORPUSCULAR VOLUME 90.5 fl (80.0-96.0); MONO # 0.4 10^3/uL (0.0-0.8); MONO % 4.4 % (2.0-8.0); NEUTROPHILS # 6.7 10^3/uL (1.5-8.5); NEUTROPHILS % 72.9 % (36.0-66.0); PLATELET COUNT, AUTOMATED 197 10^3/uL (150-450); RED BLOOD COUNT 4.52 10^6/uL (4.00-5.40); WHITE BLOOD COUNT 9.1 10^3/uL (4.0-10.0)
[2022-09-12 12:12] LABS: LIPASE 21 U/L (12-53)
[2022-09-12 12:14] LABS: CPK CREATINE PHOSPHOKINASE 69 U/L (34-145)
[2022-09-12 12:16] LABS: ALBUMIN 3.3 G/DL (3.2-5.2); ALKALINE PHOSPHATASE 70 U/L (46-116); ALT/SGPT 20 U/L (7.0-40); AST/SGOT 21 U/L (<34); BILIRUBIN,DIRECT 0.3 MG/DL (<0.4); BILIRUBIN,TOTAL 0.9 MG/DL (0.3-1.2); CK-MB VALUE MASS < 1.0 NG/ML (<3.6); MB/CK RELATIVE INDEX 1.44 (< OR =4); TOTAL PROTEIN 5.8 G/DL (5.7-8.2)
[2022-09-12 12:21] LABS: RSV AMPLIFICATION NEGATIVE (NEGATIVE)
[2022-09-12 13:22] LABS: CK-MB VALUE MASS < 1.0 NG/ML (<3.6); CPK CREATINE PHOSPHOKINASE 48 U/L (34-145); MB/CK RELATIVE INDEX 2.08 (< OR =4)
[2022-09-12] MEDS: MORPHINE 2 MG/ML 1ML VIAL IV PRN ×3 (14:42→23:23)
[2022-09-12] MEDS ORDERED: MORPHINE 2 MG/ML 1ML VIAL IV PRN (16:50)
[2022-09-12] MEDS ORDERED: ACETAMINOPHEN TAB 650MG DOSE (2X325MG) PO PRN (17:20)
[2022-09-12] MEDS ORDERED: IPRATROPIUM 0.5MG/ALBUTEROL 2.5MG INH SOL UD 3ML (DUONEB) NEB PRN (17:20)
[2022-09-12] MEDS ORDERED: IPRATROPIUM 0.5MG/ALBUTEROL 2.5MG INH SOL UD 3ML (DUONEB) NEB ONE (17:35)
[2022-09-12] MEDS ORDERED: CHLO100T30 PO (18:56)
[2022-09-12] MEDS ORDERED: QUET100T2 PO (18:56)
[2022-09-12] MEDS ORDERED: DOXA1TAB40 PO (18:58)
[2022-09-12] MEDS ORDERED: NYST-13 TOP (18:58)
[2022-09-12] MEDS ORDERED: DESV50TA3 PO (18:59)
[2022-09-12] MEDS ORDERED: NICO1DIS12 TOP (18:59)
[2022-09-12] MEDS ORDERED: HOME MED LIST COMPLETE! XX SCH (19:00)
[2022-09-12] MEDS: IPRATROPIUM 0.5MG/ALBUTEROL 2.5MG INH SOL UD 3ML (DUONEB) NEB SCH (19:26)
[2022-09-12] MEDS: METOCLOPRAMIDE INJ 10MG/2ML VIAL IV PRN (19:54)
[2022-09-12] MEDS: NS 1,000 ML IV SCH (19:59)
[2022-09-12] MEDS ORDERED: QUEtiapine FUMARATE 100 MG TAB PO SCH (21:00)
[2022-09-12] MEDS ORDERED: NICOTINE 14 MG/24 HR TRANSDERMAL TD SCH (21:00)
[2022-09-12 23:20] VITALS: BP 146/94
[2022-09-13] MEDS: IPRATROPIUM 0.5MG/ALBUTEROL 2.5MG INH SOL UD 3ML (DUONEB) NEB SCH ×2 (02:02→07:24)
[2022-09-13] MEDS: NS 1,000 ML IV SCH ×2 (03:08→09:45)
[2022-09-13 06:00] VITALS: BP 136/75
[2022-09-13 06:05] LABS: HEMATOCRIT 38.9 % (36.0-47.0); HEMOGLOBIN 12.4 g/dl (12.0-15.5); MEAN CORPUSCULAR HEMOGLOBIN 29.3 pg (27.0-33.0); MEAN CORPUSCULAR HGB CONC 31.9 g/dl (32.0-36.5); PLATELET COUNT, AUTOMATED 174 10^3/uL (150-450); RED BLOOD COUNT 4.23 10^6/uL (4.00-5.40); WHITE BLOOD COUNT 7.1 10^3/uL (4.0-10.0)
[2022-09-13 06:32] LABS: ALBUMIN 2.9 G/DL (3.2-5.2); ALKALINE PHOSPHATASE 60 U/L (46-116); ALT/SGPT 17 U/L (7.0-40); AST/SGOT 20 U/L (<34); BILIRUBIN,TOTAL 0.7 MG/DL (0.3-1.2); BLOOD UREA NITROGEN 8 MG/DL (9-23); CALCIUM LEVEL 7.9 MG/DL (8.5-10.1); CARBON DIOXIDE LEVEL 25 MMOL/L (20-31); CHLORIDE LEVEL 111 MMOL/L (98-107); CREATININE FOR GFR 0.78 MG/DL (0.55-1.30); GLOMERULAR FILTRATION RATE > 60.0 (>60); GLUCOSE, FASTING 64 MG/DL (60-100); MAGNESIUM LEVEL 1.7 MG/DL (1.8-2.4); POTASSIUM SERUM 3.9 MMOL/L (3.5-5.1); SODIUM LEVEL 142 MMOL/L (136-145)
[2022-09-13] MEDS: MORPHINE 2 MG/ML 1ML VIAL IV PRN (07:48)
[2022-09-13] MEDS ORDERED: ALBUTEROL 90 MCG/ACT 8GM HFA INHALER INH PRN (07:55)
[2022-09-13] MEDS ORDERED: FLUTICASONE PROP 0.05% NASAL SPRAY 16 GM (FLONASE) PRN (07:55)
[2022-09-13] MEDS ORDERED: IPRATROPIUM 0.5MG/ALBUTEROL 2.5MG INH SOL UD 3ML (DUONEB) INH PRN (07:55)
[2022-09-13] MEDS ORDERED: DULoxetine 30MG CAPSULE (CYMBALTA) PO SCH (09:00)
[2022-09-13] MEDS ORDERED: LIDOCAINE 5% (LIDODERM) PATCH TOP SCH (09:00)
[2022-09-13] MEDS ORDERED: METHADONE 10MG TAB PO SCH (09:00)
[2022-09-13] MEDS ORDERED: NYSTATIN CREAM 15GM TOP SCH (09:00)
[2022-09-13] MEDS ORDERED: MAGNESIUM OXIDE 400MG TAB (MAG-OX) PO ONE (09:00)
[2022-09-13] MEDS ORDERED: DESVENLAFAXINE ER 50MG TABLET (PRISTIQ) PO SCH (09:00)
[2022-09-13] MEDS ORDERED: cefTRIAXone SOD 2 GM in D5W MINI-BAG PLUS 50 ML IV SCH (09:00)
[2022-09-13] MEDS ORDERED: METH10CO3 PO (09:03)
[2022-09-13] MEDS ORDERED: PILL CUTTER 1 EACH XX PRN (09:30)
[2022-09-13] MEDS ORDERED: REGL5TAB2 PO (11:32)
[2022-09-13] MEDS ORDERED: CEFD300C PO (11:34)
[2022-09-13] MEDS: METOCLOPRAMIDE INJ 10MG/2ML VIAL IV PRN (12:45)
[2022-09-13 14:00] VITALS: BP 114/75
[2022-09-13] MEDS ORDERED: DOXAZOSIN MESYLATE 4 MG TAB PO SCH (21:00)
== END 2022-09-13 15:40 | disposition home or self-care (01) ==
LOC: EDBD 09:53 → M ED 09:53 → M ED INP 17:20 → M MSPAV 23:08
PROVIDERS: ADMIT Family Medicine; ATTEND Family Medicine
DX: R19.7 Diarrhea, unspecified (principal); R11.10 Vomiting, unspecified; F39 Unspecified mood [affective] disorder; F43.10 Post-traumatic stress disorder, unspecified; F90.9 Attention-deficit hyperactivity disorder, unspecified type; J45.909 Unspecified asthma, uncomplicated; R05.9 Cough, unspecified; R09.89 Other specified symptoms and signs involving the circulatory and respiratory systems; F19.10 Other psychoactive substance abuse, uncomplicated; F17.200 Nicotine dependence, unspecified, uncomplicated; Z79.899 Other long term (current) drug therapy; Z88.0 Allergy status to penicillin; Z88.8 Allergy status to other drugs, medicaments and biological substances; Z91.018 Allergy to other foods; Z91.013 Allergy to seafood; Z91.030 Bee allergy status
CPT/HCPCS: 36415; 71045; 74176; 80053; 80076; 81001; 82550; 82553; 83605; 83690; 83735; 84145; 85025; 85027; 87086; 87486; 87581; 87631; 87633; 87798; 93005; 93041; 94640; 96361; 96365; 96366; 96375; 96376; 99285; J0696; J2405; J2765; S0109

== ENCOUNTER 2022-09-20 07:45 | Emergency (ER) | payer OTHER ==
[~2022-09-20] VITALS: Ht 157.5 cm; Wt 90.9 kg
[~2022-09-20 07:45] MED LIST changes: +CEFD300C PO; +CHLO100T30 PO; +DESV50TA3 PO; +DOXA1TAB40 PO; +METH10CO3 PO; +NICO1DIS12 TOP; +NYST-13 TOP; +REGL5TAB2 PO
[2022-09-20] MEDS ORDERED: HALOPERIDOL 5MG/ML 1ML VIAL IV ONE (07:55)
[2022-09-20 10:00] VITALS: BP 166/72
== END 2022-09-20 10:07 | disposition home or self-care (01) ==
LOC: M ED 07:45
DX: F12.288 Cannabis dependence with other cannabis-induced disorder (principal); F43.10 Post-traumatic stress disorder, unspecified; F90.9 Attention-deficit hyperactivity disorder, unspecified type; F32.A Depression, unspecified; F31.9 Bipolar disorder, unspecified; F17.200 Nicotine dependence, unspecified, uncomplicated; Z91.018 Allergy to other foods; Z88.0 Allergy status to penicillin; Z91.030 Bee allergy status; Z91.013 Allergy to seafood; Z79.51 Long term (current) use of inhaled steroids; Z79.899 Other long term (current) drug therapy
CPT/HCPCS: 80047; 96374; 99284; J1630

== ENCOUNTER 2022-10-01 20:07 | Emergency (ER) | payer OTHER ==
[~2022-10-01] VITALS: Ht 157.5 cm; Wt 94.0 kg
[2022-10-02] MEDS ORDERED: KETOROLAC 30 MG/ML 1ML VIAL IV ONE (00:35)
[2022-10-02] MEDS ORDERED: ONDANSETRON 4MG 2ML VIAL IV ONE (01:00)
[2022-10-02 01:07] LABS: BASO % 0.5 % (0.0-1.0); EOS # 0.2 10^3/uL (0.0-0.5); EOS % 3.3 % (0.0-3.0); HEMATOCRIT 43.9 % (36.0-47.0); HEMOGLOBIN 14.4 g/dl (12.0-15.5); LYMPH # 2.5 10^3/uL (1.5-5.0); MEAN CORPUSCULAR HEMOGLOBIN 29.1 pg (27.0-33.0); MEAN CORPUSCULAR HGB CONC 32.8 g/dl (32.0-36.5); MEAN CORPUSCULAR VOLUME 88.9 fl (80.0-96.0); MONO # 0.4 10^3/uL (0.0-0.8); MONO % 5.9 % (2.0-8.0); NEUTROPHILS # 3.4 10^3/uL (1.5-8.5); NEUTROPHILS % 52.1 % (36.0-66.0); PLATELET COUNT, AUTOMATED 193 10^3/uL (150-450); RED BLOOD COUNT 4.94 10^6/uL (4.00-5.40); WHITE BLOOD COUNT 6.6 10^3/uL (4.0-10.0)
[2022-10-02 01:18] LABS: LIPASE 20 U/L (12-53)
[2022-10-02 01:21] LABS: ALBUMIN 3.4 G/DL (3.2-5.2); ALKALINE PHOSPHATASE 72 U/L (46-116); ALT/SGPT 18 U/L (7.0-40); AST/SGOT 23 U/L (<34); BILIRUBIN,TOTAL 0.5 MG/DL (0.3-1.2); BLOOD UREA NITROGEN 6 MG/DL (9-23); CARBON DIOXIDE LEVEL 28 MMOL/L (20-31); CHLORIDE LEVEL 104 MMOL/L (98-107); CREATININE FOR GFR 0.77 MG/DL (0.55-1.30); GLOMERULAR FILTRATION RATE > 60.0 (>60); GLUCOSE, FASTING 92 MG/DL (60-100); POTASSIUM SERUM 4.1 MMOL/L (3.5-5.1); SODIUM LEVEL 139 MMOL/L (136-145)
[2022-10-02 02:31] VITALS: BP 153/92
[2022-10-02] MEDS ORDERED: ONDA4TAB6 PO (02:31)
== END 2022-10-02 02:44 | disposition home or self-care (01) ==
LOC: M ED 20:07 → EDBD 20:07 → M ED 10-02 02:44
DX: R10.84 Generalized abdominal pain (principal); R11.0 Nausea; K59.00 Constipation, unspecified; J44.9 Chronic obstructive pulmonary disease, unspecified; F90.9 Attention-deficit hyperactivity disorder, unspecified type; F41.9 Anxiety disorder, unspecified; F43.10 Post-traumatic stress disorder, unspecified; F17.200 Nicotine dependence, unspecified, uncomplicated; F12.90 Cannabis use, unspecified, uncomplicated; Z91.018 Allergy to other foods; Z88.0 Allergy status to penicillin; Z91.030 Bee allergy status; Z91.013 Allergy to seafood; Z79.899 Other long term (current) drug therapy; Z79.51 Long term (current) use of inhaled steroids
CPT/HCPCS: 71045; 74018; 80053; 83605; 83690; 85025; 96374; 96375; 99284; J1885; J2405

== ENCOUNTER 2022-11-22 21:06 | Emergency (ER) | payer OTHER ==
[~2022-11-22] VITALS: Ht 157.5 cm; Wt 95.0 kg
[~2022-11-22 21:06] MED LIST changes: +EEG; +ONDA4TAB6 PO
[2022-11-22] MEDS ORDERED: LORazepam 1 MG TAB PO STA (22:03)
[2022-11-22 22:23] LABS: VENOUS BASE EXCESS -0.1 (-2.0-2.0); VENOUS HCO3 25.4 MMOL/L (23.0-27.0); VENOUS O2 SATURATION 87.3 % (60.0-80.0); VENOUS PARTIAL PRESSURE CO2 44.6 mmHg (38.0-50.0); VENOUS PARTIAL PRESSURE O2 54.3 mmHg (30.0-50.0); VENOUS PH 7.374 UNITS (7.330-7.430); VENOUS STANDARD HCO3 24.2 MMOL/L; VENOUS TOTAL CO2 26.8 MMOL/L (24.0-28.0)
[2022-11-22 22:28] LABS: BASO % 0.4 % (0.0-1.0); EOS % 0.1 % (0.0-3.0); HEMATOCRIT 39.7 % (36.0-47.0); HEMOGLOBIN 12.9 g/dl (12.0-15.5); LYMPH # 1.8 10^3/uL (1.5-5.0); LYMPH % 26.2 % (24.0-44.0); MEAN CORPUSCULAR HEMOGLOBIN 28.3 pg (27.0-33.0); MEAN CORPUSCULAR HGB CONC 32.5 g/dl (32.0-36.5); MEAN CORPUSCULAR VOLUME 87.1 fl (80.0-96.0); MONO # 0.3 10^3/uL (0.0-0.8); MONO % 3.7 % (2.0-8.0); NEUTROPHILS # 4.6 10^3/uL (1.5-8.5); NEUTROPHILS % 69.3 % (36.0-66.0); PLATELET COUNT, AUTOMATED 171 10^3/uL (150-450); RED BLOOD COUNT 4.56 10^6/uL (4.00-5.40); WHITE BLOOD COUNT 6.7 10^3/uL (4.0-10.0)
[2022-11-22 22:59] LABS: CPK CREATINE PHOSPHOKINASE 54 U/L (34-145)
[2022-11-22 23:00] LABS: ALBUMIN 3.2 G/DL (3.2-5.2); ALKALINE PHOSPHATASE 82 U/L (46-116); ALT/SGPT 12 U/L (7.0-40); AST/SGOT 10 U/L (<34); BILIRUBIN,DIRECT < 0.1 MG/DL (<0.4); BILIRUBIN,TOTAL 0.4 MG/DL (0.3-1.2); BLOOD UREA NITROGEN 12 MG/DL (9-23); CALCIUM LEVEL 8.8 MG/DL (8.5-10.1); CARBON DIOXIDE LEVEL 25 MMOL/L (20-31); CHLORIDE LEVEL 107 MMOL/L (98-107); CK-MB VALUE MASS < 1.0 NG/ML (<3.6); CREATININE FOR GFR 0.78 MG/DL (0.55-1.30); GLOMERULAR FILTRATION RATE > 60.0 (>60); GLUCOSE, FASTING 88 MG/DL (60-100); MB/CK RELATIVE INDEX 1.85 (< OR =4); POTASSIUM SERUM 3.6 MMOL/L (3.5-5.1); SODIUM LEVEL 139 MMOL/L (136-145)
[2022-11-22 23:02] LABS: THYROID STIMULATING HORMONE 3.513 uIU/ML (0.55-4.78)
[2022-11-22 23:11] LABS: PROCALCITONIN <0.04 ng/ml
[2022-11-22 23:45] VITALS: BP 138/97; TEMP 98; O2SAT 99
== END 2022-11-22 23:57 | disposition home or self-care (01) ==
LOC: M ED 21:06
DX: F11.20 Opioid dependence, uncomplicated (principal); J44.9 Chronic obstructive pulmonary disease, unspecified; F90.9 Attention-deficit hyperactivity disorder, unspecified type; F43.10 Post-traumatic stress disorder, unspecified; F41.9 Anxiety disorder, unspecified; K44.9 Diaphragmatic hernia without obstruction or gangrene; F17.200 Nicotine dependence, unspecified, uncomplicated; Z91.018 Allergy to other foods; Z88.0 Allergy status to penicillin; Z91.030 Bee allergy status; Z91.013 Allergy to seafood; Z79.899 Other long term (current) drug therapy; Z79.51 Long term (current) use of inhaled steroids

== ENCOUNTER → 2022-11-24 | Outpatient (CLI) | payer OTHER | LOC: M SLEEP 07:14 | PROVIDERS: ATTEND Emergency Medicine | DX: R42 Dizziness and giddiness (principal); R56.9 Unspecified convulsions ==

== ENCOUNTER → 2022-12-11 | Outpatient (REF) | payer OTHER ==
[2022-12-12 12:01] LABS: URINE PREG TEST NEGATIVE (NEGATIVE)
[2022-12-12 12:15] LABS: APPEARANCE, URINE CLOUDY (CLEAR); BACTERIA, URINE AUTO NEGATIVE (NEGATIVE); BILIRUBIN, URINE AUTO NEGATIVE (NEGATIVE); BLOOD, URINE BLOOD 1+ (NEGATIVE); CALCIUM OXALATE CRYSTALS MODERATE; COLOR, URINE AMBER (YELLOW); GLUCOSE, URINE (UA) AUTO NEGATIVE (NEGATIVE); KETONE, URINE AUTO NEGATIVE (NEGATIVE); LEUKOCYTE ESTERASE, URINE AUTO NEGATIVE (NEGATIVE); MUCUS, URINE SMALL (NEGATIVE); NITRITE, URINE AUTO NEGATIVE (NEGATIVE); PROTEIN, URINE AUTO NEGATIVE (NEGATIVE); RBC, URINE AUTO 5 /HPF (0-3); SPECIFIC GRAVITY URINE AUTO 1.028 (1.002-1.035); SQUAMOUS EPITHELIAL CELL UR AU 5 /HPF (0-6); WBC, URINE AUTO 2 /HPF (0-3)
== END ==
LOC: M LAB REF 11:09
PROVIDERS: ATTEND Nurse Practitioner Family
DX: N92.5 Other specified irregular menstruation (principal); R10.9 Unspecified abdominal pain

== ENCOUNTER 2022-12-29 04:26 | Observation (INO) | payer OTHER ==
[~2022-12-29] VITALS: Ht 157.5 cm; Wt 94.3 kg
[2022-12-29] MEDS ORDERED: NS 1,000 ML IV ONE (04:45)
[2022-12-29] MEDS ORDERED: PROMETHAZINE 25MG/ML 1ML VIAL IV ONE (05:00)
[2022-12-29 05:38] LABS: HEMATOCRIT 41.6 % (36.0-47.0); HEMOGLOBIN 13.7 g/dl (12.0-15.5); MEAN CORPUSCULAR HEMOGLOBIN 27.9 pg (27.0-33.0); MEAN CORPUSCULAR HGB CONC 32.9 g/dl (32.0-36.5); MEAN CORPUSCULAR VOLUME 84.7 fl (80.0-96.0); PLATELET COUNT, AUTOMATED 175 10^3/uL (150-450); RED BLOOD COUNT 4.91 10^6/uL (4.00-5.40); WHITE BLOOD COUNT 9.5 10^3/uL (4.0-10.0)
[2022-12-29 05:55] LABS: LIPASE 29 U/L (12-53)
[2022-12-29 05:57] LABS: ALBUMIN 3.5 G/DL (3.2-5.2); ALKALINE PHOSPHATASE 96 U/L (46-116); ALT/SGPT 13 U/L (7.0-40); AST/SGOT 16 U/L (<34); BILIRUBIN,TOTAL 0.9 MG/DL (0.3-1.2); BLOOD UREA NITROGEN 9 MG/DL (9-23); CALCIUM LEVEL 8.7 MG/DL (8.5-10.1); CARBON DIOXIDE LEVEL 23 MMOL/L (20-31); CHLORIDE LEVEL 106 MMOL/L (98-107); CREATININE FOR GFR 0.85 MG/DL (0.55-1.30); GLOMERULAR FILTRATION RATE > 60.0 (>60); GLUCOSE, FASTING 147 MG/DL (60-100); POTASSIUM SERUM 3.7 MMOL/L (3.5-5.1); RSV AMPLIFICATION NEGATIVE (NEGATIVE); SODIUM LEVEL 140 MMOL/L (136-145); TOTAL PROTEIN 6.5 G/DL (5.7-8.2)
[2022-12-29] MEDS ORDERED: HALOPERIDOL 5MG/ML 1ML VIAL IV ONE (06:00)
[2022-12-29] MEDS ORDERED: MORPHINE 2 MG/ML 1ML VIAL IV ONE (08:15)
[2022-12-29] MEDS ORDERED: ONDANSETRON 4MG 2ML VIAL IV ONE (08:40)
[2022-12-29] MEDS ORDERED: SCOPOLAMINE 1MG TRANSDERMAL PATCH TOP SCH (09:00)
[2022-12-29] MEDS: DOCUSATE SODIUM 100MG CAPSULE PO SCH ×2 (09:00→19:53)
[2022-12-29] MEDS ORDERED: MOM 30ML SUSPENSION UDC PO PRN (09:05)
[2022-12-29] MEDS ORDERED: PROCHLORPERAZINE 10MG 2ML VIAL IV PRN (09:05)
[2022-12-29 09:11] LABS: ETHYL ALCOHOL (ETHANOL) < 0.003 % (0.000-0.010)
[2022-12-29 09:12] LABS: ACETAMINOPHEN LEVEL < 2.0 UG/ML (10.0-20.0)
[2022-12-29 09:13] LABS: HCG, SERUM QUALITATIVE NEGATIVE (NEGATIVE); SALICYLATE LEVEL < 3.0 MG/DL (<30)
[2022-12-29] MEDS: LR 1,000 ML IV SCH ×2 (09:27→15:46)
[2022-12-29 10:20] LABS: PROCALCITONIN <0.04 ng/ml
[2022-12-29] MEDS ORDERED: MED REC IN PROGRESS XX SCH (10:50)
[2022-12-29] MEDS ORDERED: ACET-683 PO (11:33)
[2022-12-29] MEDS ORDERED: MAGN400T2 PO (11:33)
[2022-12-29] MEDS ORDERED: DOXA1TAB41 PO (11:33)
[2022-12-29] MEDS ORDERED: MONT10TA97 PO (11:33)
[2022-12-29] MEDS ORDERED: QUET1TAB17 PO (11:33)
[2022-12-29] MEDS ORDERED: RAME8TAB2 PO (11:33)
[2022-12-29] MEDS ORDERED: SENN-121 PO (11:33)
[2022-12-29] MEDS ORDERED: HYDR2.5C54 TOP (11:33)
[2022-12-29] MEDS ORDERED: REXU1TAB2 PO (11:33)
[2022-12-29] MEDS ORDERED: CHLOR50TA PO (11:33)
[2022-12-29] MEDS ORDERED: HOME MED LIST COMPLETE! XX SCH (11:45)
[2022-12-29] MEDS ORDERED: FLUTICASONE PROP 0.05% NASAL SPRAY 16 GM (FLONASE) PRN (15:05)
[2022-12-29] MEDS ORDERED: SENOKOT S TAB PO PRN (15:05)
[2022-12-29] MEDS ORDERED: RAMELTEON 8 MG TAB (ROZEREM) PO PRN (15:05)
[2022-12-29] MEDS ORDERED: ALBUTEROL 90 MCG/ACT 8GM HFA INHALER INH PRN (15:05)
[2022-12-29 15:40] VITALS: BP 117/68; TEMP 101.6; O2SAT 99
[2022-12-29] MEDS ORDERED: methylPREDNISolone 125MG 2ML VIAL IV ONE (16:45)
[2022-12-29] MEDS ORDERED: diphenhydrAMINE 50MG/ML VIAL IV ONE (16:45)
[2022-12-29] MEDS: ACETAMINOPHEN TAB 650MG DOSE (2X325MG) PO PRN (17:55)
[2022-12-29] MEDS: READI-CAT 2 PO SCH ×2 (18:20→18:48)
[2022-12-29] MEDS ORDERED: KETOROLAC 30 MG/ML 1ML VIAL IV ONE (19:45)
[2022-12-29] MEDS: BREXPIPRAZOLE 0.5MG TABLET (REXULTI) PO SCH (19:53)
[2022-12-29] MEDS ORDERED: ISOVUE-370 76% 100ML VIAL As Ordered ONE (19:53)
[2022-12-29] MEDS: DOXAZOSIN MESYLATE 1 MG TAB PO SCH (19:55)
[2022-12-29 20:16] VITALS: BP 120/66; TEMP 99.3; O2SAT 99
[2022-12-29] MEDS: cefTRIAXone SOD 1 GM in D5W MINI-BAG PLUS 50 ML IV SCH (20:25)
[2022-12-29] MEDS: ONDANSETRON 4MG 2ML VIAL IV PRN (20:25)
[2022-12-29] MEDS ORDERED: QUEtiapine FUMARATE 25 MG TAB PO SCH (21:00)
[2022-12-29] MEDS: metroNIDAZOLE 500 MG in IV 1 EA IV SCH (21:07)
[2022-12-29 21:08] VITALS: BP 112/62; TEMP 100.1; O2SAT 96
[2022-12-30] MEDS: LR 1,000 ML IV SCH ×2 (04:10→10:36)
[2022-12-30 05:16] VITALS: BP 109/61; TEMP 98.2; O2SAT 97
[2022-12-30] MEDS: metroNIDAZOLE 500 MG in IV 1 EA IV SCH ×3 (05:44→21:54)
[2022-12-30 06:39] LABS: BLOOD UREA NITROGEN 11 MG/DL (9-23); CALCIUM LEVEL 8.2 MG/DL (8.5-10.1); CARBON DIOXIDE LEVEL 24 MMOL/L (20-31); CHLORIDE LEVEL 106 MMOL/L (98-107); CREATININE FOR GFR 0.79 MG/DL (0.55-1.30); GLOMERULAR FILTRATION RATE > 60.0 (>60); GLUCOSE, FASTING 130 MG/DL (60-100); MAGNESIUM LEVEL 1.5 MG/DL (1.8-2.4); POTASSIUM SERUM 3.7 MMOL/L (3.5-5.1); SODIUM LEVEL 138 MMOL/L (136-145)
[2022-12-30] MEDS: MAG SULF 1GM/100ML (MAG RUN) 1 GM in IV 1 EA IV SCH ×2 (08:21→09:31)
[2022-12-30] MEDS: ENOXAPARIN 40MG/0.4ML SYRINGE (J1650 PER 10MG) SC SCH (08:21)
[2022-12-30] MEDS: METHADONE 10MG TAB PO SCH (08:22)
[2022-12-30] MEDS: DOCUSATE SODIUM 100MG CAPSULE PO SCH ×2 (08:22→21:12)
[2022-12-30] MEDS: DESVENLAFAXINE ER 50MG TABLET (PRISTIQ) PO SCH (08:22)
[2022-12-30] MEDS: NICOTINE 21MG/24HR 1 EA TRANSDERMAL TOP SCH (08:22)
[2022-12-30] MEDS: LIDOCAINE 5% (LIDODERM) PATCH TOP SCH (08:22)
[2022-12-30] MEDS: MAGNESIUM OXIDE 400MG TAB (MAG-OX) PO SCH (08:23)
[2022-12-30] MEDS: MONTELUKAST 10 MG TAB PO SCH (08:23)
[2022-12-30] MEDS: ONDANSETRON 4MG 2ML VIAL IV PRN (09:41)
[2022-12-30 14:00] VITALS: BP 111/72; TEMP 98.2; O2SAT 95
[2022-12-30 14:33] LABS: BASO % 0.1 % (0.0-1.0); HEMATOCRIT 36.1 % (36.0-47.0); LYMPH # 2.3 10^3/uL (1.5-5.0); LYMPH % 25.2 % (24.0-44.0); MEAN CORPUSCULAR HEMOGLOBIN 28.4 pg (27.0-33.0); MEAN CORPUSCULAR HGB CONC 33.2 g/dl (32.0-36.5); MEAN CORPUSCULAR VOLUME 85.5 fl (80.0-96.0); MONO # 0.5 10^3/uL (0.0-0.8); MONO % 5.7 % (2.0-8.0); NEUTROPHILS # 6.4 10^3/uL (1.5-8.5); NEUTROPHILS % 68.7 % (36.0-66.0); PLATELET COUNT, AUTOMATED 153 10^3/uL (150-450); RED BLOOD COUNT 4.22 10^6/uL (4.00-5.40); WHITE BLOOD COUNT 9.3 10^3/uL (4.0-10.0)
[2022-12-30] MEDS: ACETAMINOPHEN TAB 650MG DOSE (2X325MG) PO PRN ×2 (17:07→22:02)
[2022-12-30] MEDS ORDERED: KETOROLAC 30 MG/ML 1ML VIAL IV PRN (18:25)
[2022-12-30] MEDS: KETOROLAC 30 MG/ML 1ML VIAL IV PRN (18:35)
[2022-12-30 19:00] VITALS: BP 111/72; TEMP 98.2; O2SAT 100
[2022-12-30 21:12] VITALS: BP 111/72
[2022-12-30] MEDS: cefTRIAXone SOD 1 GM in D5W MINI-BAG PLUS 50 ML IV SCH (21:12)
[2022-12-30] MEDS: DOXAZOSIN MESYLATE 1 MG TAB PO SCH (21:12)
[2022-12-30] MEDS: BREXPIPRAZOLE 0.5MG TABLET (REXULTI) PO SCH (21:12)
[2022-12-31] MEDS: KETOROLAC 30 MG/ML 1ML VIAL IV PRN ×2 (02:01→08:01)
[2022-12-31] MEDS ORDERED: LevoFLOXacin 750 MG TABLET PO SCH (06:00)
[2022-12-31] MEDS: metroNIDAZOLE 500 MG in IV 1 EA IV SCH (06:12)
[2022-12-31 06:18] VITALS: BP 88/46; TEMP 97.9; O2SAT 95
[2022-12-31 06:23] LABS: BASO % 0.3 % (0.0-1.0); EOS # 0.1 10^3/uL (0.0-0.5); EOS % 1.9 % (0.0-3.0); HEMATOCRIT 35.8 % (36.0-47.0); HEMOGLOBIN 11.7 g/dl (12.0-15.5); LYMPH % 47.3 % (24.0-44.0); MEAN CORPUSCULAR HEMOGLOBIN 28.3 pg (27.0-33.0); MEAN CORPUSCULAR HGB CONC 32.7 g/dl (32.0-36.5); MEAN CORPUSCULAR VOLUME 86.5 fl (80.0-96.0); MONO # 0.3 10^3/uL (0.0-0.8); MONO % 4.9 % (2.0-8.0); NEUTROPHILS # 2.9 10^3/uL (1.5-8.5); NEUTROPHILS % 45.3 % (36.0-66.0); PLATELET COUNT, AUTOMATED 132 10^3/uL (150-450); RED BLOOD COUNT 4.14 10^6/uL (4.00-5.40); WHITE BLOOD COUNT 6.3 10^3/uL (4.0-10.0)
[2022-12-31] MEDS ORDERED: NS 500 ML IV ONE (06:25)
[2022-12-31 06:55] LABS: BLOOD UREA NITROGEN 11 MG/DL (9-23); CALCIUM LEVEL 7.7 MG/DL (8.5-10.1); CARBON DIOXIDE LEVEL 28 MMOL/L (20-31); CHLORIDE LEVEL 108 MMOL/L (98-107); CREATININE FOR GFR 0.83 MG/DL (0.55-1.30); GLOMERULAR FILTRATION RATE > 60.0 (>60); GLUCOSE, FASTING 85 MG/DL (60-100); MAGNESIUM LEVEL 1.8 MG/DL (1.8-2.4); POTASSIUM SERUM 3.7 MMOL/L (3.5-5.1); SODIUM LEVEL 141 MMOL/L (136-145)
[2022-12-31 07:24] VITALS: BP 117/76; TEMP 98.8
[2022-12-31] MEDS: DESVENLAFAXINE ER 50MG TABLET (PRISTIQ) PO SCH (08:00)
[2022-12-31] MEDS: ENOXAPARIN 40MG/0.4ML SYRINGE (J1650 PER 10MG) SC SCH (08:00)
[2022-12-31] MEDS: MAGNESIUM OXIDE 400MG TAB (MAG-OX) PO SCH (08:00)
[2022-12-31] MEDS: DOCUSATE SODIUM 100MG CAPSULE PO SCH (08:00)
[2022-12-31] MEDS: METHADONE 10MG TAB PO SCH (08:00)
[2022-12-31] MEDS: MONTELUKAST 10 MG TAB PO SCH (08:00)
[2022-12-31] MEDS: LIDOCAINE 5% (LIDODERM) PATCH TOP SCH (08:01)
[2022-12-31] MEDS: NICOTINE 21MG/24HR 1 EA TRANSDERMAL TOP SCH (08:01)
[2022-12-31] MEDS ORDERED: ONDA4TAB6 PO (09:47)
[2022-12-31] MEDS ORDERED: LEVO1TAB40 PO (09:47)
== END 2022-12-31 13:22 | disposition home or self-care (01) ==
LOC: M ED 04:26 → EDBD 04:26 → M ED INP 09:01 → ENRESERV 13:46 → M MSPAV 15:37
PROVIDERS: ADMIT Student in an Organized Health Care Education/Training Program; ATTEND Student in an Organized Health Care Education/Training Program
DX: K52.9 Noninfective gastroenteritis and colitis, unspecified (principal); F39 Unspecified mood [affective] disorder; J45.909 Unspecified asthma, uncomplicated; F12.90 Cannabis use, unspecified, uncomplicated; F17.290 Nicotine dependence, other tobacco product, uncomplicated; F11.90 Opioid use, unspecified, uncomplicated; Z88.0 Allergy status to penicillin; Z88.8 Allergy status to other drugs, medicaments and biological substances; Z91.018 Allergy to other foods; Z91.013 Allergy to seafood; Z91.030 Bee allergy status; Z79.899 Other long term (current) drug therapy
CPT/HCPCS: 36415; 74176; 74177; 80048; 80053; 80143; 81001; 82077; 83690; 83735; 84145; 84703; 85025; 85027; 87040; 87631; 93005; 96361; 96365; 96367; 96372; 96375; 96376; 99285; J0696; J1100; J1200; J1630; J1650; J1836; J1885; J2405; J2550; J2930; J3475; Q9967; S0109

== ENCOUNTER 2023-01-03 12:01 | Emergency (ER) | payer OTHER ==
[~2023-01-03] VITALS: Ht 157.5 cm; Wt 93.6 kg
[2023-01-03 12:01] VITALS: BP 131/94; TEMP 97.7; O2SAT 96
[~2023-01-03 12:01] MED LIST changes: +CHLOR50TA PO; +DOXA1TAB41 PO; +HYDR2.5C54 TOP; +LEVO1TAB40 PO; +MAGN400T2 PO; +MONT10TA97 PO; +QUET1TAB17 PO; +RAME8TAB2 PO; +REXU1TAB2 PO; +SENN-121 PO
[2023-01-03] MEDS ORDERED: VALA1TAB5 PO (13:39)
== END 2023-01-03 13:45 | disposition home or self-care (01) ==
LOC: M ED 12:01
DX: B02.9 Zoster without complications (principal); F17.200 Nicotine dependence, unspecified, uncomplicated; Z79.899 Other long term (current) drug therapy; Z88.0 Allergy status to penicillin; Z88.3 Allergy status to other anti-infective agents; Z91.018 Allergy to other foods; Z91.030 Bee allergy status

== ENCOUNTER 2023-01-05 15:33 | Emergency (ER) | payer OTHER ==
[~2023-01-05] VITALS: Ht 157.5 cm; Wt 91.5 kg
[~2023-01-05 15:33] MED LIST changes: +VALA1TAB5 PO
[2023-01-05] MEDS ORDERED: METHADONE 10MG TAB PO ONE (16:55)
[2023-01-05] MEDS ORDERED: GABAPENTIN 300 MG CAP PO ONE (16:55)
[2023-01-05] MEDS ORDERED: NEUR300C PO (17:00)
[2023-01-05 17:07] VITALS: BP 130/88; TEMP 97.5; O2SAT 99
== END 2023-01-05 17:16 | disposition home or self-care (01) ==
LOC: M ED 15:33
DX: F19.20 Other psychoactive substance dependence, uncomplicated (principal); B02.9 Zoster without complications; G89.29 Other chronic pain; M54.9 Dorsalgia, unspecified; J45.909 Unspecified asthma, uncomplicated; N32.81 Overactive bladder; F17.200 Nicotine dependence, unspecified, uncomplicated; Z88.0 Allergy status to penicillin; Z79.51 Long term (current) use of inhaled steroids; Z79.899 Other long term (current) drug therapy
CPT/HCPCS: 99283; S0109

== ENCOUNTER 2023-01-18 14:06 | Emergency (ER) | payer OTHER ==
[~2023-01-18] VITALS: Ht 157.5 cm; Wt 95.5 kg
[~2023-01-18 14:06] MED LIST changes: +NEUR300C PO
[2023-01-18] MEDS ORDERED: ACETAMINOPHEN 500 MG TAB PO ONE (15:25)
[2023-01-18 16:04] VITALS: BP 122/89; TEMP 98.6; O2SAT 100
== END 2023-01-18 16:16 | disposition home or self-care (01) ==
LOC: M ED 14:06 → EDUNIT# 14:06 → EDBD 14:06 → M ED 16:16
DX: R06.02 Shortness of breath (principal); F11.20 Opioid dependence, uncomplicated; J45.909 Unspecified asthma, uncomplicated; F17.210 Nicotine dependence, cigarettes, uncomplicated; Z79.51 Long term (current) use of inhaled steroids; Z79.899 Other long term (current) drug therapy; Z88.0 Allergy status to penicillin; Z91.013 Allergy to seafood; Z91.030 Bee allergy status; Z91.041 Radiographic dye allergy status

== ENCOUNTER 2023-02-14 18:05 | Emergency (ER) | payer OTHER ==
[2023-02-14] MEDS ORDERED: ACETAMINOPHEN TAB 650MG DOSE (2X325MG) PO ONE (20:00)
[2023-02-14] MEDS ORDERED: IBUPROFEN 800 MG TAB PO ONE (20:00)
[2023-02-14] MEDS ORDERED: IBUP-1022 PO (20:18)
[2023-02-14 20:38] VITALS: BP 110/72; TEMP 97.3; O2SAT 98
== END 2023-02-14 20:41 | disposition home or self-care (01) ==
LOC: M ED 18:05 → EDBD 18:05 → M ED 20:41
DX: S70.01XA Contusion of right hip, initial encounter (principal); S40.012A Contusion of left shoulder, initial encounter; S93.401A Sprain of unspecified ligament of right ankle, initial encounter; W10.9XXA Fall (on) (from) unspecified stairs and steps, initial encounter; Y92.009 Unspecified place in unspecified non-institutional (private) residence as the place of occurrence of the external cause; Z88.0 Allergy status to penicillin; F17.200 Nicotine dependence, unspecified, uncomplicated; Z79.899 Other long term (current) drug therapy

== ENCOUNTER 2023-03-02 19:52 | Emergency (ER) | payer OTHER ==
[~2023-03-02 19:52] MED LIST changes: +IBUP-1022 PO
[2023-03-02 20:03] VITALS: TEMP 96.7
[2023-03-02] MEDS ORDERED: predniSONE 20 MG TAB PO ONE (20:25)
[2023-03-02] MEDS ORDERED: diphenhydrAMINE 25MG CAP PO ONE (20:25)
[2023-03-02] MEDS ORDERED: BENA25CA4 PO (21:31)
[2023-03-02] MEDS ORDERED: PRED20TA PO (21:31)
[2023-03-02 21:46] VITALS: BP 100/65
[2023-03-02 21:52] VITALS: O2SAT 98
== END 2023-03-02 22:10 | disposition home or self-care (01) ==
LOC: M ED 19:52
DX: R22.1 Localized swelling, mass and lump, neck (principal); T78.40XA Allergy, unspecified, initial encounter; Z91.013 Allergy to seafood; J45.909 Unspecified asthma, uncomplicated; F17.210 Nicotine dependence, cigarettes, uncomplicated; Z88.0 Allergy status to penicillin; Z91.018 Allergy to other foods; Z91.030 Bee allergy status; Z91.041 Radiographic dye allergy status
CPT/HCPCS: 93005; 99284; J7512

== ENCOUNTER 2023-04-18 15:38 | Emergency (ER) | payer OTHER ==
[~2023-04-18] VITALS: Ht 154.9 cm; Wt 90.9 kg
[~2023-04-18 15:38] MED LIST changes: +BENA25CA4 PO; -FLUT50SP17; +FLUTISP; +LIDO100S29 SSP; -LIDO2SOBTL SSP; +PRED20TA PO
[2023-04-18 16:20] LABS: BASO % 0.2 % (0.0-1.0); HEMOGLOBIN 15.1 g/dl (12.0-15.5); LYMPH # 2.1 10^3/uL (1.5-5.0); LYMPH % 17.4 % (24.0-44.0); MEAN CORPUSCULAR HGB CONC 34.3 g/dl (32.0-36.5); MEAN CORPUSCULAR VOLUME 84.6 fl (80.0-96.0); MONO # 0.4 10^3/uL (0.0-0.8); MONO % 3.5 % (2.0-8.0); NEUTROPHILS # 9.5 10^3/uL (1.5-8.5); NEUTROPHILS % 78.6 % (36.0-66.0); PLATELET COUNT, AUTOMATED 201 10^3/uL (150-450); WHITE BLOOD COUNT 12.1 10^3/uL (4.0-10.0)
[2023-04-18] MEDS ORDERED: PROMETHAZINE 25MG/ML 1ML VIAL IV ONE (16:30)
[2023-04-18 16:40] LABS: ETHYL ALCOHOL (ETHANOL) < 0.003 % (0.000-0.010)
[2023-04-18 16:41] LABS: SALICYLATE LEVEL < 3.0 MG/DL (<30)
[2023-04-18 16:42] LABS: ALBUMIN 3.9 G/DL (3.2-5.2); ALKALINE PHOSPHATASE 100 U/L (46-116); ALT/SGPT 24 U/L (7.0-40); AST/SGOT 19 U/L (<34); BILIRUBIN,DIRECT 0.3 MG/DL (<0.4); BILIRUBIN,TOTAL 0.9 MG/DL (0.3-1.2); BLOOD UREA NITROGEN 14 MG/DL (9-23); CALCIUM LEVEL 9.3 MG/DL (8.5-10.1); CARBON DIOXIDE LEVEL 23 MMOL/L (20-31); CHLORIDE LEVEL 105 MMOL/L (98-107); CPK CREATINE PHOSPHOKINASE 40 U/L (34-145); CREATININE FOR GFR 0.98 MG/DL (0.55-1.30); GLOMERULAR FILTRATION RATE > 60.0 (>60); GLUCOSE, FASTING 243 MG/DL (60-100); POTASSIUM SERUM 3.5 MMOL/L (3.5-5.1); SODIUM LEVEL 140 MMOL/L (136-145); TOTAL PROTEIN 6.9 G/DL (5.7-8.2)
[2023-04-18 18:59] LABS: AMPHETAMINES LEVEL URINE NEGATIVE (NEGATIVE); BARBITURATES URINE NEGATIVE (NEGATIVE); BENZODIAZEPINES URINE NEGATIVE (NEGATIVE); COCAINE METABOLITE URINE NEGATIVE (NEGATIVE); OPIATES URINE NEGATIVE (NEGATIVE)
[2023-04-18 19:00] LABS: PHENCYCLIDINE URINE NEGATIVE (NEGATIVE)
[2023-04-18 19:02] LABS: CANNABINOIDS URINE POSITIVE (NEGATIVE); METHADONE URINE POSITIVE (NEGATIVE)
[2023-04-18] MEDS ORDERED: METHADONE 10MG TAB PO ONE (19:50)
[2023-04-18 21:53] VITALS: BP 113/80; TEMP 97.7; O2SAT 99
== END 2023-04-18 21:58 | disposition home or self-care (01) ==
LOC: M ED 15:38
DX: F11.99 Opioid use, unspecified with unspecified opioid-induced disorder (principal); R00.0 Tachycardia, unspecified; F17.290 Nicotine dependence, other tobacco product, uncomplicated; J45.909 Unspecified asthma, uncomplicated; Z88.0 Allergy status to penicillin; Z91.013 Allergy to seafood; Z91.030 Bee allergy status; Z91.041 Radiographic dye allergy status; Z79.51 Long term (current) use of inhaled steroids; Z79.899 Other long term (current) drug therapy
CPT/HCPCS: 80047; 80048; 80076; 80143; 80307; 82077; 82550; 84443; 85025; 93005; 93041; 94760; 96374; 99285; J2550; S0109

== ENCOUNTER 2023-05-20 11:29 | Emergency (ER) | payer OTHER ==
[~2023-05-20] VITALS: Ht 154.9 cm; Wt 93.6 kg
[~2023-05-20 11:29] MED LIST changes: +CETI-24 PO; +DULO1CAP5 PO; +HYDR-3713 PO
[2023-05-20] MEDS ORDERED: NS 1,000 ML IV ONE (11:45)
[2023-05-20] MEDS ORDERED: IBUP-1022 PO (11:53)
[2023-05-20 12:22] LABS: BASO % 0.4 % (0.0-1.0); EOS % 0.2 % (0.0-3.0); HEMATOCRIT 42.6 % (36.0-47.0); HEMOGLOBIN 14.1 g/dl (12.0-15.5); LYMPH # 1.8 10^3/uL (1.5-5.0); MEAN CORPUSCULAR HEMOGLOBIN 27.9 pg (27.0-33.0); MEAN CORPUSCULAR HGB CONC 33.1 g/dl (32.0-36.5); MEAN CORPUSCULAR VOLUME 84.4 fl (80.0-96.0); MONO # 0.3 10^3/uL (0.0-0.8); MONO % 5.1 % (2.0-8.0); NEUTROPHILS # 3.6 10^3/uL (1.5-8.5); NEUTROPHILS % 63.1 % (36.0-66.0); PLATELET COUNT, AUTOMATED 210 10^3/uL (150-450); RED BLOOD COUNT 5.05 10^6/uL (4.00-5.40); WHITE BLOOD COUNT 5.7 10^3/uL (4.0-10.0)
[2023-05-20 12:47] LABS: LIPASE 27 U/L (12-53)
[2023-05-20 12:49] LABS: ALBUMIN 3.6 G/DL (3.2-5.2); ALKALINE PHOSPHATASE 95 U/L (46-116); ALT/SGPT 19 U/L (7.0-40); AST/SGOT 18 U/L (<34); BILIRUBIN,DIRECT 0.2 MG/DL (<0.4); BILIRUBIN,TOTAL 0.6 MG/DL (0.3-1.2); BLOOD UREA NITROGEN 18 MG/DL (9-23); CALCIUM LEVEL 9.3 MG/DL (8.5-10.1); CARBON DIOXIDE LEVEL 28 MMOL/L (20-31); CHLORIDE LEVEL 110 MMOL/L (98-107); CREATININE FOR GFR 0.88 MG/DL (0.55-1.30); GLOMERULAR FILTRATION RATE > 60.0 (>60); GLUCOSE, FASTING 113 MG/DL (60-100); POTASSIUM SERUM 4.2 MMOL/L (3.5-5.1); SODIUM LEVEL 142 MMOL/L (136-145); TOTAL PROTEIN 6.7 G/DL (5.7-8.2)
[2023-05-20 12:50] LABS: HCG, SERUM QUALITATIVE NEGATIVE (NEGATIVE)
[2023-05-20 12:51] LABS: RSV AMPLIFICATION NEGATIVE (NEGATIVE)
[2023-05-20] MEDS ORDERED: KETOROLAC 30 MG/ML 1ML VIAL IV ONE (13:00)
[2023-05-20] MEDS ORDERED: PROMETHAZINE 25MG/ML 1ML VIAL IV ONE (13:00)
[2023-05-20] MEDS ORDERED: diphenhydrAMINE 50MG/ML VIAL IV STA (13:12)
[2023-05-20] MEDS ORDERED: methylPREDNISolone 125MG 2ML VIAL IV ONE (13:15)
[2023-05-20] MEDS ORDERED: MED REC IN PROGRESS XX SCH (13:25)
[2023-05-20] MEDS ORDERED: ACET-897 PO (13:57)
[2023-05-20] MEDS ORDERED: REXU1TAB3 PO (13:57)
[2023-05-20] MEDS ORDERED: HOME MED LIST COMPLETE! XX SCH (14:00)
[2023-05-20] MEDS ORDERED: ISOVUE-370 76% 100ML VIAL As Ordered ONE (14:02)
[2023-05-20] MEDS ORDERED: ONDA4TAB6 PO (16:02)
[2023-05-20] MEDS ORDERED: ACETAMINOPHEN TAB 650MG DOSE (2X325MG) PO ONE (16:10)
[2023-05-20 16:24] VITALS: BP 122/88; TEMP 98.5; O2SAT 100
== END 2023-05-20 16:54 | disposition home or self-care (01) ==
LOC: EDBD 11:29 → M ED 11:29
DX: A09 Infectious gastroenteritis and colitis, unspecified (principal); K21.9 Gastro-esophageal reflux disease without esophagitis; F43.10 Post-traumatic stress disorder, unspecified; G47.33 Obstructive sleep apnea (adult) (pediatric); F31.9 Bipolar disorder, unspecified; F12.10 Cannabis abuse, uncomplicated; Z88.0 Allergy status to penicillin; Z91.030 Bee allergy status; Z91.048 Other nonmedicinal substance allergy status; Z91.018 Allergy to other foods; Z91.013 Allergy to seafood; Z79.52 Long term (current) use of systemic steroids; Z79.83 Long term (current) use of bisphosphonates; Z79.899 Other long term (current) drug therapy
CPT/HCPCS: 74177; 80048; 80076; 81001; 83690; 84703; 85025; 87631; 93005; 96374; 96375; 99284; J1200; J1885; J2550; J2930; Q9967

== ENCOUNTER → 2023-05-22 | Outpatient (CLI) | payer OTHER ==
[~2023-05-22] MED LIST changes: +ACET-897 PO; +REXU1TAB3 PO
== END ==
LOC: M PLAIMG 12:20
PROVIDERS: ATTEND Otolaryngology
DX: H90.12 Conductive hearing loss, unilateral, left ear, with unrestricted hearing on the contralateral side (principal)

== ENCOUNTER → 2023-06-01 | Outpatient (REF) | payer OTHER ==
[2023-06-01 16:05] LABS: HEMOGLOBIN A1c 5.2 % (4.0-6.0)
== END ==
LOC: M LAB REF 12:29
PROVIDERS: ATTEND Nurse Practitioner Family
DX: E83.42 Hypomagnesemia (principal); R73.9 Hyperglycemia, unspecified

== ENCOUNTER → 2023-06-18 | Outpatient (REF) | payer OTHER ==
[~2023-06-18] MED LIST changes: +GABA-282 PO
[2023-06-18 19:16] LABS: BASO % 0.2 % (0.0-1.0); EOS % 0.4 % (0.0-3.0); HEMATOCRIT 38.6 % (36.0-47.0); HEMOGLOBIN 12.1 g/dl (12.0-15.5); LYMPH # 2.7 10^3/uL (1.5-5.0); LYMPH % 52.8 % (24.0-44.0); MEAN CORPUSCULAR HEMOGLOBIN 27.4 pg (27.0-33.0); MEAN CORPUSCULAR HGB CONC 31.3 g/dl (32.0-36.5); MEAN CORPUSCULAR VOLUME 87.5 fl (80.0-96.0); MONO # 0.4 10^3/uL (0.0-0.8); MONO % 6.8 % (2.0-8.0); NEUTROPHILS % 39.8 % (36.0-66.0); PLATELET COUNT, AUTOMATED 185 10^3/uL (150-450); RED BLOOD COUNT 4.41 10^6/uL (4.00-5.40); WHITE BLOOD COUNT 5.1 10^3/uL (4.0-10.0)
== END ==
LOC: M LAB REF 18:33
PROVIDERS: ATTEND Nurse Practitioner Family
DX: R23.8 Other skin changes (principal)

== ENCOUNTER → 2023-08-06 | Outpatient (CLI) | payer MEDICARE ==
[~2023-08-06] MED LIST changes: +BUPR150T12 PO; +REXU1TAB4 PO
== END ==
LOC: M PAIN 13:00
PROVIDERS: ATTEND Nurse Practitioner Family
DX: M79.18 Myalgia, other site (principal); G89.29 Other chronic pain; J45.909 Unspecified asthma, uncomplicated; F41.9 Anxiety disorder, unspecified; F43.10 Post-traumatic stress disorder, unspecified; Z79.899 Other long term (current) drug therapy; Z88.0 Allergy status to penicillin; Z88.8 Allergy status to other drugs, medicaments and biological substances; Z91.013 Allergy to seafood; Z91.018 Allergy to other foods

== ENCOUNTER → 2023-09-11 | Outpatient (REF) | payer MEDICARE ==
[2023-09-11 18:38] LABS: CHOLESTEROL RISK RATIO 4.21 (<5); HDL CHOLESTEROL 63.3 MG/DL (>40); LDL CHOLESTEROL 173.9 MG/DL (<100); NON-HDL-C 203.7 MG/DL
== END ==
LOC: M LAB REF 16:24
PROVIDERS: ATTEND Nurse Practitioner Family
DX: Z13.6 Encounter for screening for cardiovascular disorders (principal)

== ENCOUNTER → 2023-10-13 | Outpatient (CLI) | payer MEDICARE ==
[~2023-10-13] MED LIST changes: +ONDA-282 PO; -ONDA4TAB6 PO
== END ==
LOC: M WHC 13:37
PROVIDERS: ATTEND Nurse Practitioner Family
DX: Z12.31 Encounter for screening mammogram for malignant neoplasm of breast (principal); N92.6 Irregular menstruation, unspecified

== ENCOUNTER → 2023-10-13 | Outpatient (CLI) | payer MEDICARE, OTHER ==
[2023-10-13 15:52] LABS: HEMOGLOBIN A1c 5.1 % (4.0-6.0)
[2023-10-13 16:07] LABS: THYROID STIMULATING HORMONE 2.453 uIU/ML (0.55-4.78)
[2023-10-13 16:08] LABS: FREE T4 1.15 NG/DL (0.89-1.76); PROLACTIN 10.14 NG/ML
[2023-10-15 14:14] LABS: HPV APTIMA Not Detected (Not Detected)
[2023-10-19 23:02] LABS: TESTOSTERONE FREE (DIRECT) 2.9 pg/mL (0.1-6.4)
== END ==
LOC: M PLALAB 14:03
PROVIDERS: ATTEND Nurse Practitioner Family
DX: Z12.4 Encounter for screening for malignant neoplasm of cervix (principal); Z80.3 Family history of malignant neoplasm of breast; N92.6 Irregular menstruation, unspecified; Z79.899 Other long term (current) drug therapy

== ENCOUNTER 2023-10-29 13:38 | Emergency (ER) | payer OTHER ==
[~2023-10-29] VITALS: Ht 154.9 cm; Wt 95.5 kg
[2023-10-29 13:55] VITALS: TEMP 98.3
[2023-10-29] MEDS: NS 1,000 ML IV ONE (14:29)
[2023-10-29 14:43] LABS: HEMATOCRIT 39.2 % (36.0-47.0); HEMOGLOBIN 12.5 g/dl (12.0-15.5); LYMPH # 2.3 10^3/uL (1.5-5.0); LYMPH % 45.1 % (24.0-44.0); MEAN CORPUSCULAR HEMOGLOBIN 27.4 pg (27.0-33.0); MEAN CORPUSCULAR HGB CONC 31.9 g/dl (32.0-36.5); MONO # 0.3 10^3/uL (0.0-0.8); MONO % 5.4 % (2.0-8.0); NEUTROPHILS # 2.5 10^3/uL (1.5-8.5); NEUTROPHILS % 49.3 % (36.0-66.0); PLATELET COUNT, AUTOMATED 192 10^3/uL (150-450); RED BLOOD COUNT 4.56 10^6/uL (4.00-5.40)
[2023-10-29 15:08] LABS: BLOOD UREA NITROGEN 13 MG/DL (9-23); CALCIUM LEVEL 8.8 MG/DL (8.5-10.1); CARBON DIOXIDE LEVEL 30 MMOL/L (20-31); CHLORIDE LEVEL 105 MMOL/L (98-107); CREATININE FOR GFR 0.89 MG/DL (0.55-1.30); GLOMERULAR FILTRATION RATE > 60.0 (>58); GLUCOSE, FASTING 73 MG/DL (60-100); MAGNESIUM LEVEL 1.8 MG/DL (1.8-2.4); POTASSIUM SERUM 4.3 MMOL/L (3.5-5.1); SODIUM LEVEL 138 MMOL/L (136-145)
[2023-10-29 15:11] LABS: FREE T4 0.89 NG/DL (0.89-1.76); THYROID STIMULATING HORMONE 2.237 uIU/ML (0.55-4.78)
[2023-10-29 15:17] LABS: AMPHETAMINES LEVEL URINE NEGATIVE (NEGATIVE); BARBITURATES URINE NEGATIVE (NEGATIVE); BENZODIAZEPINES URINE NEGATIVE (NEGATIVE); CANNABINOIDS URINE POSITIVE (NEGATIVE); COCAINE METABOLITE URINE NEGATIVE (NEGATIVE); METHADONE URINE POSITIVE (NEGATIVE); OPIATES URINE NEGATIVE (NEGATIVE); PHENCYCLIDINE URINE NEGATIVE (NEGATIVE)
[2023-10-29 17:53] VITALS: BP 133/73; O2SAT 99
== END 2023-10-29 18:06 | disposition home or self-care (01) ==
LOC: M ED 13:38 → EDBD 13:38 → M ED 18:06
DX: R55 Syncope and collapse (principal); J45.909 Unspecified asthma, uncomplicated; K21.9 Gastro-esophageal reflux disease without esophagitis; R94.31 Abnormal electrocardiogram [ECG] [EKG]; F31.9 Bipolar disorder, unspecified; F43.10 Post-traumatic stress disorder, unspecified; F17.210 Nicotine dependence, cigarettes, uncomplicated; F12.10 Cannabis abuse, uncomplicated; Z88.0 Allergy status to penicillin; Z91.013 Allergy to seafood; Z91.018 Allergy to other foods; Z91.030 Bee allergy status; Z79.1 Long term (current) use of non-steroidal anti-inflammatories (NSAID); Z79.51 Long term (current) use of inhaled steroids; Z79.899 Other long term (current) drug therapy

== ENCOUNTER 2023-11-15 19:23 | Inpatient (IN) | payer OTHER, MEDICAID ==
[~2023-11-15] VITALS: Ht 154.9 cm; Wt 106.0 kg
[2023-11-15 21:06] LABS: BASO % 0.1 % (0.0-1.0); HEMATOCRIT 42.2 % (36.0-47.0); HEMOGLOBIN 13.5 g/dl (12.0-15.5); LYMPH # 1.8 10^3/uL (1.5-5.0); LYMPH % 12.5 % (24.0-44.0); MEAN CORPUSCULAR HEMOGLOBIN 27.6 pg (27.0-33.0); MEAN CORPUSCULAR VOLUME 86.1 fl (80.0-96.0); MONO # 0.5 10^3/uL (0.0-0.8); MONO % 3.5 % (2.0-8.0); NEUTROPHILS # 12.1 10^3/uL (1.5-8.5); NEUTROPHILS % 83.5 % (36.0-66.0); PLATELET COUNT, AUTOMATED 190 10^3/uL (150-450); WHITE BLOOD COUNT 14.5 10^3/uL (4.0-10.0)
[2023-11-15] MEDS: NS 1,000 ML IV ONE ×2 (21:14→23:24)
[2023-11-15] MEDS: METOCLOPRAMIDE INJ 10MG/2ML VIAL IV ONE (21:14)
[2023-11-15 21:31] LABS: LIPASE 30 U/L (12-53)
[2023-11-15 21:32] LABS: HCG, SERUM QUALITATIVE NEGATIVE (NEGATIVE)
[2023-11-15 21:34] LABS: ALBUMIN 4.2 G/DL (3.2-5.2); ALKALINE PHOSPHATASE 135 U/L (46-116); ALT/SGPT 14 U/L (7.0-40); AST/SGOT 18 U/L (<34); BILIRUBIN,DIRECT < 0.1 MG/DL (<0.4); BILIRUBIN,TOTAL 0.3 MG/DL (0.3-1.2); MAGNESIUM LEVEL 1.8 MG/DL (1.8-2.4); TOTAL PROTEIN 7.3 G/DL (5.7-8.2)
[2023-11-15] MEDS: PROMETHAZINE 25MG/ML 1ML VIAL IV ONE (22:13)
[2023-11-16] MEDS: METOCLOPRAMIDE INJ 10MG/2ML VIAL IV ONE (02:00)
[2023-11-16] MEDS: NS 1,000 ML IV STA (03:31)
[2023-11-16] MEDS: CIPROFLOXACIN 200 MG in IV 1 EA IV SCH (05:00)
[2023-11-16] MEDS ORDERED: BUPR10TASR PO (07:00)
[2023-11-16] MEDS ORDERED: HOME MED LIST COMPLETE! XX SCH (07:00)
[2023-11-16] MEDS ORDERED: HYDR-3363 PO (07:00)
[2023-11-16] MEDS ORDERED: DESV100T3 PO (07:00)
[2023-11-16] MEDS: ENOXAPARIN 40MG/0.4ML SYRINGE (J1650 PER 10MG) SC SCH (07:23)
[2023-11-16] MEDS: MIRALAX *UNIT DOSE* 17GM PACKET PO SCH (07:23)
[2023-11-16] MEDS: metroNIDAZOLE 500 MG in IV 1 EA IV SCH (07:23)
[2023-11-16] MEDS: DOCUSATE SODIUM 100MG CAPSULE PO SCH (07:24)
[2023-11-16 07:50] LABS: HEMATOCRIT 36.4 % (36.0-47.0); HEMOGLOBIN 11.6 g/dl (12.0-15.5); MEAN CORPUSCULAR HEMOGLOBIN 27.5 pg (27.0-33.0); MEAN CORPUSCULAR HGB CONC 31.9 g/dl (32.0-36.5); MEAN CORPUSCULAR VOLUME 86.3 fl (80.0-96.0); PLATELET COUNT, AUTOMATED 167 10^3/uL (150-450); RED BLOOD COUNT 4.22 10^6/uL (4.00-5.40); WHITE BLOOD COUNT 10.1 10^3/uL (4.0-10.0)
[2023-11-16] MEDS ORDERED: ALBUTEROL 90 MCG/ACT 8GM HFA INHALER INH PRN (08:20)
[2023-11-16] MEDS ORDERED: RAMELTEON 8 MG TAB (ROZEREM) PO PRN (08:20)
[2023-11-16] MEDS: METOCLOPRAMIDE INJ 10MG/2ML VIAL IV PRN (08:34)
[2023-11-16] MEDS: MAGNESIUM OXIDE 400MG TAB (MAG-OX) PO SCH (08:57)
[2023-11-16] MEDS: MONTELUKAST 10 MG TAB PO SCH (08:57)
[2023-11-16] MEDS: METHADONE 10MG TAB PO SCH (08:57)
[2023-11-16] MEDS: CETIRIZINE (ZyrTEC) 10 MG TAB PO SCH (08:57)
[2023-11-16] MEDS: buPROPion (WELLBUTRIN SR) 100 MG SR TAB PO SCH (09:47)
[2023-11-16 10:09] LABS: ALBUMIN 3.6 G/DL (3.2-5.2); ALKALINE PHOSPHATASE 108 U/L (46-116); ALT/SGPT 18 U/L (7.0-40); AST/SGOT 17 U/L (<34); BILIRUBIN,TOTAL 0.4 MG/DL (0.3-1.2); BLOOD UREA NITROGEN 12 MG/DL (9-23); CALCIUM LEVEL 8.4 MG/DL (8.5-10.1); CARBON DIOXIDE LEVEL 24 MMOL/L (20-31); CHLORIDE LEVEL 109 MMOL/L (98-107); CREATININE FOR GFR 0.65 MG/DL (0.55-1.30); GLOMERULAR FILTRATION RATE > 60.0 (>58); GLUCOSE, FASTING 137 MG/DL (60-100); POTASSIUM SERUM 3.7 MMOL/L (3.5-5.1); SODIUM LEVEL 140 MMOL/L (136-145); TOTAL PROTEIN 6.2 G/DL (5.7-8.2)
[2023-11-16 14:20] VITALS: BP 105/69; TEMP 98.6; O2SAT 99
[2023-11-16] MEDS: CIPROFLOXACIN 400 MG in IV 1 EA IV SCH (15:17)
[2023-11-16 15:50] LABS: C REACTIVE PROTEIN QUANTITATIV < 0.40 MG/DL (<1.0)
[2023-11-16 16:04] LABS: PROCALCITONIN <0.04 ng/ml
[2023-11-16 16:24] LABS: ERYTHROCYTE SEDIMENTATION RATE 19 mm/hr (0-20)
[2023-11-16 20:25] VITALS: BP 90/60; TEMP 97.9; TEMP 99.4; O2SAT 98
[2023-11-16 20:37] VITALS: BP 90/60
[2023-11-16] MEDS: PRAZOSIN 1 MG CAP PO SCH (20:37)
[2023-11-16] MEDS: BREXPIPRAZOLE 2MG TABLET (REXULTI) PO SCH (20:39)
[2023-11-16] MEDS: ACETAMINOPHEN TAB 650MG DOSE (2X325MG) PO PRN (20:43)
[2023-11-17 03:22] VITALS: BP 117/67; TEMP 99; O2SAT 96
[2023-11-17 07:22] LABS: ALBUMIN 3.1 G/DL (3.2-5.2); ALKALINE PHOSPHATASE 94 U/L (46-116); ALT/SGPT 15 U/L (7.0-40); AST/SGOT 15 U/L (<34); BILIRUBIN,TOTAL 0.7 MG/DL (0.3-1.2); BLOOD UREA NITROGEN 10 MG/DL (9-23); CALCIUM LEVEL 8.3 MG/DL (8.5-10.1); CARBON DIOXIDE LEVEL 28 MMOL/L (20-31); CHLORIDE LEVEL 109 MMOL/L (98-107); CREATININE FOR GFR 0.76 MG/DL (0.55-1.30); GLOMERULAR FILTRATION RATE > 60.0 (>58); GLUCOSE, FASTING 74 MG/DL (60-100); POTASSIUM SERUM 3.3 MMOL/L (3.5-5.1); SODIUM LEVEL 142 MMOL/L (136-145); TOTAL PROTEIN 5.5 G/DL (5.7-8.2)
[2023-11-17] MEDS: buPROPion (WELLBUTRIN SR) 100 MG SR TAB PO SCH (09:38)
[2023-11-17] MEDS ORDERED: CEFD1CAP9 PO (11:00)
[2023-11-17] MEDS ORDERED: METR-265 PO (11:00)
[2023-11-17] MEDS: POTASSIUM CHLORIDE 10MEQ SR TABLET PO ONE (11:28)
[2023-11-17 12:00] VITALS: BP 128/77; TEMP 98.4; O2SAT 98
== END 2023-11-17 13:42 | disposition home or self-care (01) | DRG 249 ==
LOC: M ED 19:23 → M ED INP 11-16 03:41 → M MSPAV 11-16 14:17
PROVIDERS: ADMIT Internal Medicine; ATTEND Internal Medicine
DX: K52.9 Noninfective gastroenteritis and colitis, unspecified (principal); F32.A Depression, unspecified; F17.290 Nicotine dependence, other tobacco product, uncomplicated; F43.10 Post-traumatic stress disorder, unspecified; F90.9 Attention-deficit hyperactivity disorder, unspecified type; J45.909 Unspecified asthma, uncomplicated; F11.10 Opioid abuse, uncomplicated; F12.10 Cannabis abuse, uncomplicated; N32.81 Overactive bladder; F41.9 Anxiety disorder, unspecified; M16.12 Unilateral primary osteoarthritis, left hip; Z79.899 Other long term (current) drug therapy; Z88.0 Allergy status to penicillin; Z88.8 Allergy status to other drugs, medicaments and biological substances; Z91.013 Allergy to seafood; Z91.018 Allergy to other foods; Z91.030 Bee allergy status

== ENCOUNTER → 2023-11-23 | Outpatient (REF) | payer OTHER ==
[~2023-11-23] MED LIST changes: +BUPR10TASR PO; +CEFD1CAP9 PO; +DESV100T3 PO; +HYDR-3363 PO; +METR-265 PO
[2023-11-23 12:04] LABS: HEMATOCRIT 41.5 % (36.0-47.0); HEMOGLOBIN 13.4 g/dl (12.0-15.5); MEAN CORPUSCULAR HEMOGLOBIN 27.6 pg (27.0-33.0); MEAN CORPUSCULAR HGB CONC 32.3 g/dl (32.0-36.5); MEAN CORPUSCULAR VOLUME 85.6 fl (80.0-96.0); PLATELET COUNT, AUTOMATED 212 10^3/uL (150-450); RED BLOOD COUNT 4.85 10^6/uL (4.00-5.40); WHITE BLOOD COUNT 6.3 10^3/uL (4.0-10.0)
[2023-11-23 12:33] LABS: ALBUMIN 3.7 G/DL (3.2-5.2); ALKALINE PHOSPHATASE 117 U/L (46-116); ALT/SGPT 31 U/L (7.0-40); AST/SGOT 24 U/L (<34); BILIRUBIN,TOTAL 0.5 MG/DL (0.3-1.2); BLOOD UREA NITROGEN 10 MG/DL (9-23); CALCIUM LEVEL 9.3 MG/DL (8.5-10.1); CARBON DIOXIDE LEVEL 28 MMOL/L (20-31); CHLORIDE LEVEL 108 MMOL/L (98-107); CREATININE FOR GFR 0.94 MG/DL (0.55-1.30); GLOMERULAR FILTRATION RATE > 60.0 (>58); GLUCOSE, FASTING 93 MG/DL (60-100); POTASSIUM SERUM 4.5 MMOL/L (3.5-5.1); SODIUM LEVEL 143 MMOL/L (136-145); TOTAL PROTEIN 6.5 G/DL (5.7-8.2)
[2023-11-23 12:45] LABS: HEPATITIS B SURFACE ANTIGEN NEGATIVE (NEGATIVE)
[2023-11-23 12:58] LABS: HIV 1&2 SCREEN NEGATIVE (NEGATIVE)
[2023-11-23 13:07] LABS: HEPATITIS C VIRUS ABY INDEX < 0.02 INDEX (<0.8)
[2023-11-23 13:10] LABS: HCG, SERUM QUALITATIVE NEGATIVE (NEGATIVE)
[2023-11-23 13:45] LABS: GC DNA AMPLIFICATION NEGATIVE (NEGATIVE)
== END ==
LOC: M LABDRAWC 10:37
PROVIDERS: ATTEND Family Medicine
DX: F11.20 Opioid dependence, uncomplicated (principal)

== ENCOUNTER 2023-12-23 10:38 | Emergency (ER) | payer OTHER ==
[~2023-12-23] VITALS: Ht 154.9 cm; Wt 101.2 kg
[2023-12-23 11:16] LABS: BASO % 0.1 % (0.0-1.0); HEMOGLOBIN 15.3 g/dl (12.0-15.5); LYMPH # 2.8 10^3/uL (1.5-5.0); LYMPH % 35.5 % (24.0-44.0); MEAN CORPUSCULAR HEMOGLOBIN 28.3 pg (27.0-33.0); MEAN CORPUSCULAR HGB CONC 32.6 g/dl (32.0-36.5); MEAN CORPUSCULAR VOLUME 86.9 fl (80.0-96.0); MONO # 0.5 10^3/uL (0.0-0.8); MONO % 5.8 % (2.0-8.0); NEUTROPHILS # 4.6 10^3/uL (1.5-8.5); NEUTROPHILS % 58.3 % (36.0-66.0); PLATELET COUNT, AUTOMATED 262 10^3/uL (150-450); RED BLOOD COUNT 5.41 10^6/uL (4.00-5.40); WHITE BLOOD COUNT 7.9 10^3/uL (4.0-10.0)
[2023-12-23 11:31] LABS: D-DIMER QUANT 1.14 ug/mL (<0.5); INR 1.06; PROTHROMBIN TIME 13.5 SECONDS (12.5-14.5)
[2023-12-23] MEDS: KETOROLAC 30 MG/ML 1ML VIAL IV ONE (11:41)
[2023-12-23 11:43] LABS: LIPASE 24 U/L (12-53)
[2023-12-23 11:44] LABS: CPK CREATINE PHOSPHOKINASE 43 U/L (34-145)
[2023-12-23 11:45] LABS: ALBUMIN 4.4 G/DL (3.2-5.2); ALKALINE PHOSPHATASE 151 U/L (46-116); ALT/SGPT 20 U/L (7.0-40); AST/SGOT 16 U/L (<34); BILIRUBIN,DIRECT 0.2 MG/DL (<0.4); BILIRUBIN,TOTAL 0.8 MG/DL (0.3-1.2); BLOOD UREA NITROGEN 13 MG/DL (9-23); CALCIUM LEVEL 9.8 MG/DL (8.5-10.1); CARBON DIOXIDE LEVEL 26 MMOL/L (20-31); CHLORIDE LEVEL 105 MMOL/L (98-107); CK-MB VALUE MASS < 1.0 NG/ML (<3.6); CREATININE FOR GFR 0.89 MG/DL (0.55-1.30); GLOMERULAR FILTRATION RATE > 60.0 (>58); GLUCOSE, FASTING 111 MG/DL (60-100); MB/CK RELATIVE INDEX 2.32 (< OR =4); POTASSIUM SERUM 3.9 MMOL/L (3.5-5.1); SODIUM LEVEL 139 MMOL/L (136-145); TOTAL PROTEIN 8.1 G/DL (5.7-8.2)
[2023-12-23 11:47] LABS: THYROID STIMULATING HORMONE 2.587 uIU/ML (0.55-4.78)
[2023-12-23] MEDS: diphenhydrAMINE 50MG/ML VIAL IV STA (12:37)
[2023-12-23] MEDS: methylPREDNISolone 125MG 2ML VIAL IV ONE (12:37)
[2023-12-23 13:01] LABS: CK-MB VALUE MASS < 1.0 NG/ML (<3.6); CPK CREATINE PHOSPHOKINASE 56 U/L (34-145); MB/CK RELATIVE INDEX 1.78 (< OR =4)
[2023-12-23] MEDS ORDERED: ISOVUE-370 76% 100ML VIAL As Ordered ONE (13:12)
[2023-12-23 14:15] LABS: CPK CREATINE PHOSPHOKINASE 45 U/L (34-145)
[2023-12-23 14:16] LABS: CK-MB VALUE MASS < 1.0 NG/ML (<3.6); MB/CK RELATIVE INDEX 2.22 (< OR =4)
[2023-12-23 14:37] VITALS: BP 123/77; TEMP 98.9; O2SAT 99
== END 2023-12-23 14:45 | disposition home or self-care (01) ==
LOC: M ED 10:38
DX: R07.9 Chest pain, unspecified (principal); R00.0 Tachycardia, unspecified; J45.909 Unspecified asthma, uncomplicated; F90.9 Attention-deficit hyperactivity disorder, unspecified type; Z88.0 Allergy status to penicillin; Z88.8 Allergy status to other drugs, medicaments and biological substances; Z91.030 Bee allergy status; Z91.013 Allergy to seafood; Z79.1 Long term (current) use of non-steroidal anti-inflammatories (NSAID); Z79.51 Long term (current) use of inhaled steroids; Z79.2 Long term (current) use of antibiotics; Z79.899 Other long term (current) drug therapy
CPT/HCPCS: 71045; 71275; 80048; 80076; 82550; 82553; 83690; 84443; 84484; 85025; 85379; 85610; 93005; 93041; 94760; 96374; 96375; 99285; J1200; J1885; J2919; Q9967

== ENCOUNTER → 2023-12-28 | Outpatient (REF) | payer MEDICARE, OTHER ==
[~2023-12-28] MED LIST changes: +ADV100INH; +DULO1CAP5; +FLOM0.4C39 PO; +KETO10TAB PO
[2023-12-28 13:00] LABS: APPEARANCE, URINE CLOUDY (CLEAR); BACTERIA, URINE AUTO NEGATIVE (NEGATIVE); BILIRUBIN, URINE AUTO NEGATIVE (NEGATIVE); BLOOD, URINE BLOOD NEGATIVE (NEGATIVE); CALCIUM OXALATE CRYSTALS LARGE; COLOR, URINE AMBER (YELLOW); GLUCOSE, URINE (UA) AUTO NEGATIVE (NEGATIVE); KETONE, URINE AUTO TRACE mg/dL (NEGATIVE); LEUKOCYTE ESTERASE, URINE AUTO NEGATIVE (NEGATIVE); MUCUS, URINE SMALL (NEGATIVE); NITRITE, URINE AUTO NEGATIVE (NEGATIVE); PROTEIN, URINE AUTO 1+ mg/dL (NEGATIVE); RBC, URINE AUTO 1 /HPF (0-3); SPECIFIC GRAVITY URINE AUTO 1.026 (1.002-1.035); SQUAMOUS EPITHELIAL CELL UR AU 2 /HPF (0-6); WBC, URINE AUTO 0 /HPF (0-3)
== END ==
LOC: M SMT 12:19
PROVIDERS: ATTEND Specialist
DX: N32.81 Overactive bladder (principal)

== ENCOUNTER → 2023-12-29 | Outpatient (REF) | payer OTHER | LOC: M LAB REF 12:49 | PROVIDERS: ATTEND Nurse Practitioner Family | DX: R07.89 Other chest pain (principal) ==

== ENCOUNTER 2023-12-30 10:08 | Emergency (ER) | payer OTHER ==
[~2023-12-30] VITALS: Ht 154.9 cm; Wt 103.1 kg
[~2023-12-30 10:08] MED LIST changes: -ADV100INH; -DULO1CAP5; -FLOM0.4C39 PO; -KETO10TAB PO
[2023-12-30] MEDS ORDERED: ADV100INH (11:38)
[2023-12-30] MEDS ORDERED: DULO1CAP5 (11:38)
[2023-12-30] MEDS: KETOROLAC 30 MG/ML 1ML VIAL IV ONE (12:31)
[2023-12-30 12:53] LABS: HEMATOCRIT 39.3 % (36.0-47.0); HEMOGLOBIN 12.7 g/dl (12.0-15.5); LYMPH # 2.1 10^3/uL (1.5-5.0); LYMPH % 34.4 % (24.0-44.0); MEAN CORPUSCULAR HEMOGLOBIN 28.3 pg (27.0-33.0); MEAN CORPUSCULAR HGB CONC 32.3 g/dl (32.0-36.5); MEAN CORPUSCULAR VOLUME 87.7 fl (80.0-96.0); MONO # 0.3 10^3/uL (0.0-0.8); MONO % 4.6 % (2.0-8.0); NEUTROPHILS # 3.7 10^3/uL (1.5-8.5); NEUTROPHILS % 60.8 % (36.0-66.0); PLATELET COUNT, AUTOMATED 196 10^3/uL (150-450); RED BLOOD COUNT 4.48 10^6/uL (4.00-5.40); WHITE BLOOD COUNT 6.1 10^3/uL (4.0-10.0)
[2023-12-30 13:13] LABS: LIPASE 28 U/L (12-53)
[2023-12-30 13:15] LABS: ALBUMIN 3.6 G/DL (3.2-5.2); ALKALINE PHOSPHATASE 124 U/L (46-116); ALT/SGPT 17 U/L (7.0-40); AST/SGOT 15 U/L (<34); BILIRUBIN,TOTAL 0.2 MG/DL (0.3-1.2); BLOOD UREA NITROGEN 13 MG/DL (9-23); CALCIUM LEVEL 9.2 MG/DL (8.5-10.1); CARBON DIOXIDE LEVEL 29 MMOL/L (20-31); CHLORIDE LEVEL 106 MMOL/L (98-107); CREATININE FOR GFR 0.76 MG/DL (0.55-1.30); GLOMERULAR FILTRATION RATE > 60.0 (>58); GLUCOSE, FASTING 87 MG/DL (60-100); POTASSIUM SERUM 3.8 MMOL/L (3.5-5.1); SODIUM LEVEL 141 MMOL/L (136-145); TOTAL PROTEIN 6.9 G/DL (5.7-8.2)
[2023-12-30 13:31] VITALS: BP 115/59; TEMP 97.8; O2SAT 97
[2023-12-30] MEDS ORDERED: FLOM0.4C39 PO (13:49)
[2023-12-30] MEDS ORDERED: KETO10TAB PO (13:49)
[2023-12-30] MEDS ORDERED: CEPH500C PO (13:50)
== END 2023-12-30 14:21 | disposition home or self-care (01) ==
LOC: M ED 10:08
DX: N39.0 Urinary tract infection, site not specified (principal); R10.9 Unspecified abdominal pain; G47.33 Obstructive sleep apnea (adult) (pediatric); J45.909 Unspecified asthma, uncomplicated; F17.290 Nicotine dependence, other tobacco product, uncomplicated; Z88.0 Allergy status to penicillin; Z91.013 Allergy to seafood; Z91.018 Allergy to other foods; Z91.030 Bee allergy status; Z79.1 Long term (current) use of non-steroidal anti-inflammatories (NSAID); Z79.51 Long term (current) use of inhaled steroids; Z79.2 Long term (current) use of antibiotics; Z79.899 Other long term (current) drug therapy
CPT/HCPCS: 76775; 80053; 81001; 83690; 85025; 87086; 96374; 99284; J1885

== ENCOUNTER → 2024-01-03 | Outpatient (REF) | payer MEDICARE, OTHER ==
[~2024-01-03] MED LIST changes: +ADV100INH; +CIPR7.5D2 AS; +DULO1CAP5; +FLOM0.4C39 PO; +KETO10TAB PO
[2024-01-06 13:19] LABS: CHOLESTEROL RISK RATIO 3.66 (<5); HDL CHOLESTEROL 52.7 MG/DL (>40); LDL CHOLESTEROL 107.3 MG/DL (<100); NON-HDL-C 140.3 MG/DL
== END ==
LOC: M LAB REF 11:30
PROVIDERS: ATTEND Nurse Practitioner Family
DX: E66.9 Obesity, unspecified (principal)

== ENCOUNTER 2024-01-14 12:08 | Emergency (ER) | payer MEDICARE, OTHER ==
[~2024-01-14] VITALS: Ht 154.9 cm; Wt 104.5 kg
[~2024-01-14 12:08] MED LIST changes: -CIPR7.5D2 AS
[2024-01-14] MEDS: ACETAMINOPHEN 500 MG TAB PO ONE (13:45)
[2024-01-14] MEDS ORDERED: IBUPROFEN 600MG TAB PO ONE (14:00)
[2024-01-14] MEDS ORDERED: CIPR7.5D2 AS (14:44)
[2024-01-14 15:15] VITALS: BP 130/64; TEMP 97.6; O2SAT 98
== END 2024-01-14 15:16 | disposition home or self-care (01) ==
LOC: M ED 12:08
DX: H60.92 Unspecified otitis externa, left ear (principal); F17.290 Nicotine dependence, other tobacco product, uncomplicated; F12.10 Cannabis abuse, uncomplicated; Z88.0 Allergy status to penicillin; Z88.8 Allergy status to other drugs, medicaments and biological substances; Z91.030 Bee allergy status; Z91.013 Allergy to seafood; Z91.018 Allergy to other foods; Z79.1 Long term (current) use of non-steroidal anti-inflammatories (NSAID); Z79.51 Long term (current) use of inhaled steroids; Z79.899 Other long term (current) drug therapy

== ENCOUNTER 2024-02-05 19:48 | Emergency (ER) | payer MEDICAID, OTHER ==
[~2024-02-05] VITALS: Ht 160 cm; Wt 106.9 kg
[~2024-02-05 19:48] MED LIST changes: +CIPR7.5D2 AS; +GABA-1172 PO; -GABA-282 PO
[2024-02-05 19:53] VITALS: TEMP 96.9
[2024-02-05 20:32] LABS: BASO % 0.1 % (0.0-1.0); EOS % 0.1 % (0.0-3.0); HEMATOCRIT 40.2 % (36.0-47.0); HEMOGLOBIN 12.8 g/dl (12.0-15.5); LYMPH # 2.8 10^3/uL (1.5-5.0); MEAN CORPUSCULAR HEMOGLOBIN 28.5 pg (27.0-33.0); MEAN CORPUSCULAR HGB CONC 31.8 g/dl (32.0-36.5); MEAN CORPUSCULAR VOLUME 89.5 fl (80.0-96.0); MONO # 0.4 10^3/uL (0.0-0.8); NEUTROPHILS % 55.7 % (36.0-66.0); PLATELET COUNT, AUTOMATED 205 10^3/uL (150-450); RED BLOOD COUNT 4.49 10^6/uL (4.00-5.40); WHITE BLOOD COUNT 7.1 10^3/uL (4.0-10.0)
[2024-02-05 20:55] LABS: HCG, SERUM QUALITATIVE NEGATIVE (NEGATIVE)
[2024-02-05 20:57] LABS: CK-MB VALUE MASS < 1.0 NG/ML (<3.6)
[2024-02-05 20:59] LABS: BLOOD UREA NITROGEN 12 MG/DL (9-23); CALCIUM LEVEL 9.4 MG/DL (8.5-10.1); CARBON DIOXIDE LEVEL 28 MMOL/L (20-31); CHLORIDE LEVEL 111 MMOL/L (98-107); CREATININE FOR GFR 0.92 MG/DL (0.55-1.30); GLOMERULAR FILTRATION RATE > 60.0 (>58); GLUCOSE, FASTING 63 MG/DL (60-100); MAGNESIUM LEVEL 1.9 MG/DL (1.8-2.4); POTASSIUM SERUM 4.2 MMOL/L (3.5-5.1); SODIUM LEVEL 142 MMOL/L (136-145)
[2024-02-05 21:02] LABS: CPK CREATINE PHOSPHOKINASE 52 U/L (34-145); MB/CK RELATIVE INDEX 1.92 (< OR =4); THYROID STIMULATING HORMONE 1.783 uIU/ML (0.55-4.78)
[2024-02-05] MEDS: NS 1,000 ML IV ONE (23:18)
[2024-02-06 01:54] VITALS: BP 112/72; O2SAT 100
== END 2024-02-06 01:56 | disposition home or self-care (01) ==
LOC: EDBD 19:48 → M ED 19:48
DX: R42 Dizziness and giddiness (principal); R53.83 Other fatigue; G40.909 Epilepsy, unspecified, not intractable, without status epilepticus; F11.10 Opioid abuse, uncomplicated; Z88.0 Allergy status to penicillin; Z88.8 Allergy status to other drugs, medicaments and biological substances; Z91.030 Bee allergy status; Z91.018 Allergy to other foods; Z79.1 Long term (current) use of non-steroidal anti-inflammatories (NSAID); Z79.51 Long term (current) use of inhaled steroids; Z79.899 Other long term (current) drug therapy

== ENCOUNTER 2024-02-07 19:22 | Emergency (ER) | payer MEDICAID, OTHER, SELFPAY ==
[~2024-02-07] VITALS: Ht 154.9 cm; Wt 104.1 kg
[2024-02-07 21:36] LABS: BASO % 0.1 % (0.0-1.0); EOS % 0.1 % (0.0-3.0); HEMATOCRIT 42.4 % (36.0-47.0); HEMOGLOBIN 13.7 g/dl (12.0-15.5); LYMPH # 3.3 10^3/uL (1.5-5.0); LYMPH % 31.3 % (24.0-44.0); MEAN CORPUSCULAR HEMOGLOBIN 28.5 pg (27.0-33.0); MEAN CORPUSCULAR HGB CONC 32.3 g/dl (32.0-36.5); MEAN CORPUSCULAR VOLUME 88.3 fl (80.0-96.0); MONO # 0.6 10^3/uL (0.0-0.8); MONO % 5.4 % (2.0-8.0); NEUTROPHILS # 6.7 10^3/uL (1.5-8.5); NEUTROPHILS % 62.8 % (36.0-66.0); PLATELET COUNT, AUTOMATED 225 10^3/uL (150-450); WHITE BLOOD COUNT 10.7 10^3/uL (4.0-10.0)
[2024-02-07 21:55] VITALS: TEMP 98
[2024-02-07 21:58] LABS: LIPASE 24 U/L (12-53)
[2024-02-07 22:00] LABS: CPK CREATINE PHOSPHOKINASE 56 U/L (34-145)
[2024-02-07 22:01] LABS: ALBUMIN 3.9 G/DL (3.2-5.2); ALKALINE PHOSPHATASE 147 U/L (46-116); ALT/SGPT 13 U/L (7.0-40); AST/SGOT 11 U/L (<34); BILIRUBIN,DIRECT < 0.1 MG/DL (<0.4); BILIRUBIN,TOTAL 0.2 MG/DL (0.3-1.2); BLOOD UREA NITROGEN 11 MG/DL (9-23); CALCIUM LEVEL 9.6 MG/DL (8.5-10.1); CARBON DIOXIDE LEVEL 31 MMOL/L (20-31); CHLORIDE LEVEL 105 MMOL/L (98-107); CREATININE FOR GFR 0.96 MG/DL (0.55-1.30); GLOMERULAR FILTRATION RATE > 60.0 (>58); GLUCOSE, FASTING 81 MG/DL (60-100); POTASSIUM SERUM 4.4 MMOL/L (3.5-5.1); SODIUM LEVEL 138 MMOL/L (136-145); TOTAL PROTEIN 7.2 G/DL (5.7-8.2)
[2024-02-07 22:04] LABS: CK-MB VALUE MASS < 1.0 NG/ML (<3.6); MB/CK RELATIVE INDEX 1.78 (< OR =4)
[2024-02-08 00:30] VITALS: BP 124/86; O2SAT 100
[2024-02-08] MEDS ORDERED: CIPR7.5D2 OTIC SA (01:21)
[2024-02-08] MEDS ORDERED: CEPH500C PO (01:21)
[2024-02-08] MEDS: CIPRODEX OTIC SUSP 7.5ML AS STA (01:28)
[2024-02-08] MEDS: CEPHALEXIN 500 MG CAP PO ONE (01:28)
== END 2024-02-08 01:39 | disposition home or self-care (01) ==
LOC: EDBD 19:22 → M ED 19:22
DX: H70.092 Acute mastoiditis with other complications, left ear (principal); F17.210 Nicotine dependence, cigarettes, uncomplicated; Z88.0 Allergy status to penicillin; Z91.030 Bee allergy status; Z91.018 Allergy to other foods; Z79.1 Long term (current) use of non-steroidal anti-inflammatories (NSAID); Z79.51 Long term (current) use of inhaled steroids; Z79.2 Long term (current) use of antibiotics; Z79.899 Other long term (current) drug therapy

== ENCOUNTER 2024-03-10 11:00 | Observation (INO) | payer MEDICAID, OTHER ==
[~2024-03-10] VITALS: Ht 154.9 cm; Wt 93.2 kg
[~2024-03-10 11:00] MED LIST changes: -ADV100INH; +ADV100INH INH; +CIPR7.5D2 OTIC SA; -DULO1CAP5
[2024-03-10 12:03] LABS: BASO % 0.2 % (0.0-1.0); HEMATOCRIT 40.8 % (36.0-47.0); HEMOGLOBIN 13.6 g/dl (12.0-15.5); LYMPH % 8.2 % (24.0-44.0); MEAN CORPUSCULAR HEMOGLOBIN 29.1 pg (27.0-33.0); MEAN CORPUSCULAR HGB CONC 33.3 g/dl (32.0-36.5); MEAN CORPUSCULAR VOLUME 87.4 fl (80.0-96.0); MONO # 0.3 10^3/uL (0.0-0.8); MONO % 2.3 % (2.0-8.0); NEUTROPHILS # 10.4 10^3/uL (1.5-8.5); NEUTROPHILS % 88.9 % (36.0-66.0); PLATELET COUNT, AUTOMATED 205 10^3/uL (150-450); RED BLOOD COUNT 4.67 10^6/uL (4.00-5.40); WHITE BLOOD COUNT 11.7 10^3/uL (4.0-10.0)
[2024-03-10 12:28] LABS: LIPASE 23 U/L (12-53)
[2024-03-10 12:30] LABS: ALBUMIN 3.5 G/DL (3.2-5.2); ALKALINE PHOSPHATASE 122 U/L (35-104); ALT/SGPT 16 U/L (7.0-40); AST/SGOT 11 U/L (<34); BILIRUBIN,DIRECT 0.1 MG/DL (<0.4); BILIRUBIN,TOTAL 0.4 MG/DL (0.3-1.2); TOTAL PROTEIN 6.8 G/DL (5.7-8.2)
[2024-03-10 13:20] LABS: HCG, SERUM QUALITATIVE NEGATIVE (NEGATIVE)
[2024-03-10] MEDS: ACETAMINOPHEN *IV* 1,000 MG in IV 1 EA IV ONE (13:20)
[2024-03-10] MEDS: METOCLOPRAMIDE INJ 10MG/2ML VIAL IV ONE (13:20)
[2024-03-10] MEDS ORDERED: OVERDOSE RESCUE KIT XX SCH (13:40)
[2024-03-10] MEDS: KETOROLAC 30 MG/ML 1ML VIAL IV ONE (15:02)
[2024-03-10] MEDS: PROMETHAZINE 25MG/ML 1ML VIAL IV ONE (16:48)
[2024-03-10] MEDS ORDERED: BUPRENORPHINE/NALOXONE 2-0.5MG SUBLINGUAL TABLET(SUBOXONE) SL SCH (17:25)
[2024-03-10] MEDS: cefTRIAXone SOD 1 GM in DEXTROSE 5% (D5W) ADV/MINI-BAG 50 ML IV ONE (17:30)
[2024-03-10 17:31] LABS: BLOOD UREA NITROGEN 11 MG/DL (9-23); CALCIUM LEVEL 9.1 MG/DL (8.5-10.1); CARBON DIOXIDE LEVEL 26 MMOL/L (20-31); CHLORIDE LEVEL 107 MMOL/L (98-107); CREATININE FOR GFR 0.75 MG/DL (0.55-1.30); GLOMERULAR FILTRATION RATE > 60.0 (>58); GLUCOSE, FASTING 129 MG/DL (60-100); POTASSIUM SERUM 3.9 MMOL/L (3.5-5.1); SODIUM LEVEL 139 MMOL/L (136-145)
[2024-03-10] MEDS ORDERED: SPIR50TA4 PO (17:34)
[2024-03-10] MEDS ORDERED: MEDR10TA9 PO (17:34)
[2024-03-10 17:39] LABS: PROCALCITONIN <0.04 ng/ml
[2024-03-10] MEDS ORDERED: HOME MED LIST COMPLETE! XX SCH (17:45)
[2024-03-10] MEDS: NS 1,000 ML IV SCH (18:51)
[2024-03-10] MEDS: METHADONE 10MG TAB PO ONE (18:54)
[2024-03-10 19:00] VITALS: BP 126/78; TEMP 97.2; O2SAT 99
[2024-03-10 19:38] VITALS: BP 117/58; TEMP 97.9; O2SAT 97
[2024-03-10] MEDS: ONDANSETRON 4MG 2ML VIAL IV PRN (20:07)
[2024-03-10 21:20] LABS: AMPHETAMINES LEVEL URINE NEGATIVE (NEGATIVE); BARBITURATES URINE NEGATIVE (NEGATIVE); BENZODIAZEPINES URINE NEGATIVE (NEGATIVE); COCAINE METABOLITE URINE NEGATIVE (NEGATIVE); OPIATES URINE NEGATIVE (NEGATIVE); PHENCYCLIDINE URINE NEGATIVE (NEGATIVE)
[2024-03-10 21:22] LABS: CANNABINOIDS URINE POSITIVE (NEGATIVE); METHADONE URINE POSITIVE (NEGATIVE)
[2024-03-10] MEDS: SPIRONOLACTONE 50 MG TAB PO SCH (21:26)
[2024-03-10] MEDS: BREXPIPRAZOLE 2MG TABLET (REXULTI) PO SCH (21:26)
[2024-03-10] MEDS: ACETAMINOPHEN 325 MG TAB PO PRN (22:01)
[2024-03-11 04:14] VITALS: BP 98/53; TEMP 97.3; O2SAT 97
[2024-03-11 06:22] LABS: HEMATOCRIT 36.4 % (36.0-47.0); HEMOGLOBIN 11.9 g/dl (12.0-15.5); MEAN CORPUSCULAR HEMOGLOBIN 28.7 pg (27.0-33.0); MEAN CORPUSCULAR HGB CONC 32.7 g/dl (32.0-36.5); MEAN CORPUSCULAR VOLUME 87.7 fl (80.0-96.0); PLATELET COUNT, AUTOMATED 193 10^3/uL (150-450); RED BLOOD COUNT 4.15 10^6/uL (4.00-5.40); WHITE BLOOD COUNT 12.4 10^3/uL (4.0-10.0)
[2024-03-11 06:46] LABS: ALKALINE PHOSPHATASE 109 U/L (35-104); ALT/SGPT 14 U/L (7.0-40); AST/SGOT < 8 U/L (<34); BILIRUBIN,TOTAL 0.8 MG/DL (0.3-1.2); BLOOD UREA NITROGEN 12 MG/DL (9-23); CALCIUM LEVEL 8.9 MG/DL (8.5-10.1); CARBON DIOXIDE LEVEL 27 MMOL/L (20-31); CHLORIDE LEVEL 107 MMOL/L (98-107); CREATININE FOR GFR 0.73 MG/DL (0.55-1.30); GLOMERULAR FILTRATION RATE > 60.0 (>58); GLUCOSE, FASTING 89 MG/DL (60-100); MAGNESIUM LEVEL 1.7 MG/DL (1.8-2.4); POTASSIUM SERUM 3.4 MMOL/L (3.5-5.1); SODIUM LEVEL 140 MMOL/L (136-145); TOTAL PROTEIN 6.1 G/DL (5.7-8.2)
[2024-03-11] MEDS: ADVAIR HFA 115/21MCG INHALER INH SCH (07:21)
[2024-03-11] MEDS ORDERED: HOME MED LIST COMPLETE! XX SCH (07:50)
[2024-03-11 08:33] VITALS: BP 114/81; TEMP 97.2; O2SAT 99
[2024-03-11] MEDS: DULoxetine 30MG CAPSULE (CYMBALTA) PO SCH (09:21)
[2024-03-11] MEDS: CETIRIZINE (ZyrTEC) 10 MG TAB PO SCH (09:21)
[2024-03-11] MEDS: MONTELUKAST 10 MG TAB PO SCH (09:21)
[2024-03-11] MEDS: medroxyPROGESTERone 5MG TABLET PO SCH (09:22)
[2024-03-11] MEDS: MAGNESIUM OXIDE 400MG TAB (MAG-OX) PO SCH (09:23)
[2024-03-11] MEDS: cefTRIAXone SOD 1 GM in DEXTROSE 5% (D5W) ADV/MINI-BAG 50 ML IV SCH (09:34)
[2024-03-11] MEDS: PANTOPRAZOLE 40MG VIAL IV SCH (09:39)
[2024-03-11] MEDS: MAG SULF 1GM/100ML (MAG RUN) 1 GM in IV 1 EA IV SCH (09:39)
[2024-03-11 12:00] VITALS: BP 117/85; TEMP 97; O2SAT 99
== END 2024-03-11 13:00 | disposition home or self-care (01) ==
LOC: M ED 11:00 → EDBD 11:00 → M ED INP 11:01 → M MS5PR 18:50
PROVIDERS: ADMIT Hospitalist; ATTEND Hospitalist
DX: F11.23 Opioid dependence with withdrawal (principal); T40.3X6A Underdosing of methadone, initial encounter; N30.01 Acute cystitis with hematuria; R29.6 Repeated falls; R10.9 Unspecified abdominal pain; R11.2 Nausea with vomiting, unspecified; F12.188 Cannabis abuse with other cannabis-induced disorder; E87.6 Hypokalemia; R30.0 Dysuria; R53.81 Other malaise; F41.9 Anxiety disorder, unspecified; F32.A Depression, unspecified; J45.909 Unspecified asthma, uncomplicated; B02.9 Zoster without complications; R56.9 Unspecified convulsions; I95.1 Orthostatic hypotension; G47.30 Sleep apnea, unspecified; F17.290 Nicotine dependence, other tobacco product, uncomplicated; Z91.013 Allergy to seafood; Z91.030 Bee allergy status; Z91.018 Allergy to other foods; Z88.0 Allergy status to penicillin; Z88.8 Allergy status to other drugs, medicaments and biological substances; Z79.899 Other long term (current) drug therapy; Z79.51 Long term (current) use of inhaled steroids
CPT/HCPCS: 36415; 70450; 74176; 80047; 80053; 80076; 80307; 81001; 83605; 83690; 83735; 84145; 84703; 85025; 85027; 87040; 87086; 87641; 93005; 94640; 96365; 96367; 96375; 96376; 97161; 99285; J0131; J0696; J1885; J2405; J2470; J2550; J2765; J3475; S0109

== ENCOUNTER 2024-03-28 10:52 | Emergency (ER) | payer MEDICAID ==
[~2024-03-28] VITALS: Ht 154.9 cm; Wt 103.2 kg
[~2024-03-28 10:52] MED LIST changes: +MEDR10TA9 PO; +SPIR50TA4 PO
[2024-03-28 13:06] LABS: BASO % 0.2 % (0.0-1.0); HEMATOCRIT 44.1 % (36.0-47.0); HEMOGLOBIN 14.7 g/dl (12.0-15.5); LYMPH # 1.5 10^3/uL (1.5-5.0); MEAN CORPUSCULAR HEMOGLOBIN 28.9 pg (27.0-33.0); MEAN CORPUSCULAR HGB CONC 33.3 g/dl (32.0-36.5); MEAN CORPUSCULAR VOLUME 86.8 fl (80.0-96.0); MONO # 0.5 10^3/uL (0.0-0.8); MONO % 4.2 % (2.0-8.0); NEUTROPHILS # 9.6 10^3/uL (1.5-8.5); NEUTROPHILS % 82.3 % (36.0-66.0); PLATELET COUNT, AUTOMATED 245 10^3/uL (150-450); RED BLOOD COUNT 5.08 10^6/uL (4.00-5.40); WHITE BLOOD COUNT 11.6 10^3/uL (4.0-10.0)
[2024-03-28] MEDS: ONDANSETRON 4MG 2ML VIAL IV ONE (13:10)
[2024-03-28] MEDS: KETOROLAC 30 MG/ML 1ML VIAL IV ONE (13:10)
[2024-03-28 13:24] LABS: LIPASE 23 U/L (12-53)
[2024-03-28 13:27] LABS: ALBUMIN 3.6 G/DL (3.2-5.2); ALKALINE PHOSPHATASE 128 U/L (35-104); ALT/SGPT 21 U/L (7.0-40); AST/SGOT 14 U/L (<34); BILIRUBIN,DIRECT 0.2 MG/DL (<0.4); BILIRUBIN,TOTAL 0.6 MG/DL (0.3-1.2); BLOOD UREA NITROGEN 10 MG/DL (9-23); CALCIUM LEVEL 9.4 MG/DL (8.5-10.1); CARBON DIOXIDE LEVEL 26 MMOL/L (20-31); CHLORIDE LEVEL 104 MMOL/L (98-107); CREATININE FOR GFR 0.81 MG/DL (0.55-1.30); GLOMERULAR FILTRATION RATE > 60.0 (>58); GLUCOSE, FASTING 90 MG/DL (60-100); POTASSIUM SERUM 4.2 MMOL/L (3.5-5.1); SODIUM LEVEL 138 MMOL/L (136-145); TOTAL PROTEIN 7.4 G/DL (5.7-8.2)
[2024-03-28 15:15] VITALS: BP 107/71; TEMP 96.7; O2SAT 99
== END 2024-03-28 15:33 | disposition home or self-care (01) ==
LOC: M ED 10:52
DX: A08.4 Viral intestinal infection, unspecified (principal); J45.909 Unspecified asthma, uncomplicated; F32.A Depression, unspecified; F17.290 Nicotine dependence, other tobacco product, uncomplicated; F12.10 Cannabis abuse, uncomplicated; Z88.0 Allergy status to penicillin; Z91.030 Bee allergy status; Z91.013 Allergy to seafood; Z91.018 Allergy to other foods; Z79.51 Long term (current) use of inhaled steroids; Z79.899 Other long term (current) drug therapy
CPT/HCPCS: 80048; 80076; 81001; 83690; 85025; 96374; 99284; J1885; J2405

== ENCOUNTER 2024-05-26 11:02 | Emergency (ER) | payer MEDICAID, OTHER ==
[~2024-05-26] VITALS: Ht 162.6 cm; Wt 102.9 kg
[~2024-05-26 11:02] MED LIST changes: -ADV100INH INH; -ADV250INH INH; +ADVA1AER8 INH; +ADVA1AER9 INH
[2024-05-26 13:03] LABS: HEMATOCRIT 41.6 % (36.0-47.0); MEAN CORPUSCULAR HEMOGLOBIN 28.6 pg (27.0-33.0); MEAN CORPUSCULAR HGB CONC 33.7 g/dl (32.0-36.5); MEAN CORPUSCULAR VOLUME 85.1 fl (80.0-96.0); PLATELET COUNT, AUTOMATED 228 10^3/uL (150-450); RED BLOOD COUNT 4.89 10^6/uL (4.00-5.40); WHITE BLOOD COUNT 10.3 10^3/uL (4.0-10.0)
[2024-05-26] MEDS: KETOROLAC 30 MG/ML 1ML VIAL IV ONE (13:06)
[2024-05-26 13:31] LABS: ETHYL ALCOHOL (ETHANOL) 0.004 % (0.000-0.010)
[2024-05-26 13:33] LABS: ALBUMIN 3.7 G/DL (3.2-5.2); ALKALINE PHOSPHATASE 106 U/L (35-104); ALT/SGPT 20 U/L (7.0-40); AST/SGOT 19 U/L (<34); BILIRUBIN,DIRECT 0.2 MG/DL (<0.4); BILIRUBIN,TOTAL 0.6 MG/DL (0.3-1.2); BLOOD UREA NITROGEN 7 MG/DL (9-23); CALCIUM LEVEL 9.2 MG/DL (8.5-10.1); CARBON DIOXIDE LEVEL 25 MMOL/L (20-31); CHLORIDE LEVEL 111 MMOL/L (98-107); CREATININE FOR GFR 0.73 MG/DL (0.55-1.30); GLOMERULAR FILTRATION RATE > 60.0 (>58); GLUCOSE, FASTING 89 MG/DL (60-100); POTASSIUM SERUM 3.5 MMOL/L (3.5-5.1); SALICYLATE LEVEL < 3.0 MG/DL (<30); SODIUM LEVEL 144 MMOL/L (136-145); TOTAL PROTEIN 6.7 G/DL (5.7-8.2)
[2024-05-26 13:35] LABS: THYROID STIMULATING HORMONE 0.559 uIU/ML (0.55-4.78)
[2024-05-26 13:44] LABS: AMPHETAMINES LEVEL URINE NEGATIVE (NEGATIVE); BARBITURATES URINE NEGATIVE (NEGATIVE); BENZODIAZEPINES URINE NEGATIVE (NEGATIVE); COCAINE METABOLITE URINE NEGATIVE (NEGATIVE); OPIATES URINE NEGATIVE (NEGATIVE); PHENCYCLIDINE URINE NEGATIVE (NEGATIVE)
[2024-05-26 13:47] LABS: CANNABINOIDS URINE POSITIVE (NEGATIVE); METHADONE URINE POSITIVE (NEGATIVE)
[2024-05-26] MEDS ORDERED: PRAZ1CAP PO (14:11)
[2024-05-26] MEDS ORDERED: HOME MED LIST COMPLETE! XX SCH (14:15)
[2024-05-26 14:48] LABS: KETONE, URINE AUTO RFX TRACE mg/dL (NEGATIVE); LEUKOCYTE ESTERASE UR AUTO RFX NEGATIVE (NEGATIVE); NITRITE, URINE AUTO RFX NEGATIVE (NEGATIVE); RBC, URINE AUTO RFX 6 /HPF (0-3); SQUAM EPITHELIAL CELL UR AURFX 11 /HPF (0-6); WBC, URINE AUTO RFX 0 /HPF (0-3)
[2024-05-26 16:03] VITALS: BP 130/66; TEMP 98.1; O2SAT 100
[2024-05-27] MEDS ORDERED: PROM25TA12 PO (22:58)
== END 2024-05-26 16:43 | disposition home or self-care (01) ==
LOC: M ED 11:02
DX: M62.830 Muscle spasm of back (principal); F17.210 Nicotine dependence, cigarettes, uncomplicated; F12.10 Cannabis abuse, uncomplicated; Z88.0 Allergy status to penicillin; Z91.030 Bee allergy status; Z91.013 Allergy to seafood; Z91.018 Allergy to other foods; Z91.041 Radiographic dye allergy status; Z79.51 Long term (current) use of inhaled steroids; Z79.899 Other long term (current) drug therapy
CPT/HCPCS: 74176; 80048; 80076; 80143; 80307; 81001; 82077; 84443; 85027; 96374; 99283; J1885

== ENCOUNTER 2024-05-27 18:27 | Emergency (ER) | payer OTHER ==
[~2024-05-27] VITALS: Ht 154.9 cm; Wt 100.0 kg
[2024-05-27 20:48] LABS: BASO % 0.2 % (0.0-1.0); HEMOGLOBIN 13.5 g/dl (12.0-15.5); LYMPH # 1.1 10^3/uL (1.5-5.0); LYMPH % 8.4 % (24.0-44.0); MEAN CORPUSCULAR HEMOGLOBIN 28.2 pg (27.0-33.0); MEAN CORPUSCULAR HGB CONC 32.9 g/dl (32.0-36.5); MEAN CORPUSCULAR VOLUME 85.6 fl (80.0-96.0); MONO # 0.3 10^3/uL (0.0-0.8); MONO % 2.1 % (2.0-8.0); NEUTROPHILS # 11.6 10^3/uL (1.5-8.5); PLATELET COUNT, AUTOMATED 233 10^3/uL (150-450); RED BLOOD COUNT 4.79 10^6/uL (4.00-5.40)
[2024-05-27 21:03] LABS: ALBUMIN 3.7 G/DL (3.2-5.2); BILIRUBIN,DIRECT 0.2 MG/DL (<0.4); BILIRUBIN,TOTAL 0.6 MG/DL (0.3-1.2); TOTAL PROTEIN 6.8 G/DL (5.7-8.2)
[2024-05-27] MEDS: ONDANSETRON 4MG 2ML VIAL IV ONE (21:31)
[2024-05-27] MEDS: CAPSAICIN 0.025% CR 60 GM TOP ONE (21:37)
[2024-05-27] MEDS: PANTOPRAZOLE 40MG VIAL IV ONE (21:37)
[2024-05-27] MEDS: HALOPERIDOL LACTATE 5MG/ML VIAL IV ONE (21:37)
[2024-05-27] MEDS ORDERED: PROM25TA12 PO (22:58)
[2024-05-28 00:01] VITALS: BP 131/62; TEMP 98.1; O2SAT 99
== END 2024-05-28 00:12 | disposition home or self-care (01) ==
LOC: M ED 18:27
DX: R11.2 Nausea with vomiting, unspecified (principal); F12.10 Cannabis abuse, uncomplicated; R00.1 Bradycardia, unspecified; G40.909 Epilepsy, unspecified, not intractable, without status epilepticus; F17.210 Nicotine dependence, cigarettes, uncomplicated; F11.10 Opioid abuse, uncomplicated; Z88.0 Allergy status to penicillin; Z91.041 Radiographic dye allergy status; Z91.030 Bee allergy status; Z91.013 Allergy to seafood; Z91.018 Allergy to other foods; Z79.51 Long term (current) use of inhaled steroids; Z79.899 Other long term (current) drug therapy
CPT/HCPCS: 80047; 80076; 83690; 84702; 85025; 93005; 96374; 96375; 99284; J1630; J2405; J2470

== ENCOUNTER 2024-05-29 22:22 | Emergency (ER) | payer OTHER ==
[~2024-05-29] VITALS: Ht 154.9 cm; Wt 90.9 kg
[~2024-05-29 22:22] MED LIST changes: +PROM25TA12 PO
[2024-05-30] MEDS: NS (Normal Saline) 0.9% 1,000 ML IV ONE (01:18)
[2024-05-30 01:20] LABS: BASO % 0.2 % (0.0-1.0); EOS % 0.2 % (0.0-3.0); HEMATOCRIT 44.4 % (36.0-47.0); HEMOGLOBIN 14.8 g/dl (12.0-15.5); LYMPH # 2.7 10^3/uL (1.5-5.0); LYMPH % 21.8 % (24.0-44.0); MEAN CORPUSCULAR HEMOGLOBIN 28.1 pg (27.0-33.0); MEAN CORPUSCULAR HGB CONC 33.3 g/dl (32.0-36.5); MEAN CORPUSCULAR VOLUME 84.3 fl (80.0-96.0); MONO # 0.7 10^3/uL (0.0-0.8); MONO % 5.3 % (2.0-8.0); NEUTROPHILS # 8.8 10^3/uL (1.5-8.5); NEUTROPHILS % 72.2 % (36.0-66.0); PLATELET COUNT, AUTOMATED 247 10^3/uL (150-450); RED BLOOD COUNT 5.27 10^6/uL (4.00-5.40); WHITE BLOOD COUNT 12.2 10^3/uL (4.0-10.0)
[2024-05-30] MEDS: PROMETHAZINE 25MG/ML 1ML VIAL IV ONE (01:22)
[2024-05-30] MEDS: methylPREDNISolone 125MG 2ML VIAL IV ONE (01:22)
[2024-05-30] MEDS: diphenhydrAMINE 50MG/ML VIAL IV ONE (01:23)
[2024-05-30 01:40] LABS: LIPASE 28 U/L (12-53)
[2024-05-30] MEDS ORDERED: ISOVUE-370 76% 100ML VIAL As Ordered ONE (01:47)
[2024-05-30 02:06] LABS: ALBUMIN 3.8 G/DL (3.2-5.2); ALKALINE PHOSPHATASE 102 U/L (35-104); ALT/SGPT 17 U/L (7.0-40); AST/SGOT 12 U/L (<34); BILIRUBIN,DIRECT 0.4 MG/DL (<0.4); BILIRUBIN,TOTAL 1.1 MG/DL (0.3-1.2); BLOOD UREA NITROGEN 6 MG/DL (9-23); CALCIUM LEVEL 8.9 MG/DL (8.5-10.1); CARBON DIOXIDE LEVEL 27 MMOL/L (20-31); CHLORIDE LEVEL 100 MMOL/L (98-107); CREATININE FOR GFR 0.73 MG/DL (0.55-1.30); GLOMERULAR FILTRATION RATE > 60.0 (>58); GLUCOSE, FASTING 118 MG/DL (60-100); MAGNESIUM LEVEL 1.7 MG/DL (1.8-2.4); POTASSIUM SERUM 3.1 MMOL/L (3.5-5.1); SODIUM LEVEL 139 MMOL/L (136-145)
[2024-05-30 02:14] LABS: APPEARANCE, URINE HAZY (CLEAR); BACTERIA, URINE AUTO 1+ (NEGATIVE); BILIRUBIN, URINE AUTO NEGATIVE (NEGATIVE); BLOOD, URINE BLOOD 2+ (NEGATIVE); COLOR, URINE YELLOW (YELLOW); GLUCOSE, URINE (UA) AUTO NEGATIVE (NEGATIVE); KETONE, URINE AUTO TRACE mg/dL (NEGATIVE); LEUKOCYTE ESTERASE, URINE AUTO NEGATIVE (NEGATIVE); MUCUS, URINE SMALL (NEGATIVE); NITRITE, URINE AUTO NEGATIVE (NEGATIVE); PROTEIN, URINE AUTO NEGATIVE (NEGATIVE); RBC, URINE AUTO 22 /HPF (0-3); SPECIFIC GRAVITY URINE AUTO 1.015 (1.002-1.035); SQUAMOUS EPITHELIAL CELL UR AU 7 /HPF (0-6); WBC, URINE AUTO 6 /HPF (0-3)
[2024-05-30 02:34] LABS: AMPHETAMINES LEVEL URINE NEGATIVE (NEGATIVE); BARBITURATES URINE NEGATIVE (NEGATIVE); BENZODIAZEPINES URINE NEGATIVE (NEGATIVE); COCAINE METABOLITE URINE NEGATIVE (NEGATIVE); METHADONE URINE NEGATIVE (NEGATIVE); OPIATES URINE NEGATIVE (NEGATIVE); PHENCYCLIDINE URINE NEGATIVE (NEGATIVE)
[2024-05-30 02:36] LABS: CANNABINOIDS URINE POSITIVE (NEGATIVE)
[2024-05-30] MEDS: HALOPERIDOL LACTATE 5MG/ML VIAL IV ONE (04:19)
[2024-05-30] MEDS: MAGNESIUM OXIDE 400MG TAB (MAG-OX) PO ONE (05:46)
[2024-05-30 05:47] VITALS: BP 142/88; TEMP 98.3; O2SAT 97
[2024-05-30] MEDS: POTASSIUM CHLORIDE 10MEQ SR TABLET PO ONE (05:47)
== END 2024-05-30 06:11 | disposition home or self-care (01) ==
LOC: M ED 22:22 → EDBD 22:22 → M ED 05-30 06:11
DX: R10.9 Unspecified abdominal pain (principal); R11.2 Nausea with vomiting, unspecified; R00.1 Bradycardia, unspecified; I25.2 Old myocardial infarction; F12.10 Cannabis abuse, uncomplicated; Z88.0 Allergy status to penicillin; Z91.030 Bee allergy status; Z91.013 Allergy to seafood; Z91.018 Allergy to other foods; Z91.041 Radiographic dye allergy status; Z79.51 Long term (current) use of inhaled steroids; Z79.899 Other long term (current) drug therapy
CPT/HCPCS: 74177; 80048; 80076; 80307; 81001; 83690; 83735; 84702; 85025; 87486; 87581; 87633; 87798; 93005; 96374; 96375; 99284; J1200; J1630; J2550; J2919; Q9967

== ENCOUNTER 2024-05-31 08:48 | Emergency (ER) | payer OTHER ==
[~2024-05-31] VITALS: Ht 154.9 cm; Wt 90.9 kg
[2024-05-31 10:02] LABS: HEMATOCRIT 44.1 % (36.0-47.0); HEMOGLOBIN 14.9 g/dl (12.0-15.5); MEAN CORPUSCULAR HEMOGLOBIN 28.1 pg (27.0-33.0); MEAN CORPUSCULAR HGB CONC 33.8 g/dl (32.0-36.5); MEAN CORPUSCULAR VOLUME 83.2 fl (80.0-96.0); PLATELET COUNT, AUTOMATED 244 10^3/uL (150-450); WHITE BLOOD COUNT 11.9 10^3/uL (4.0-10.0)
[2024-05-31] MEDS: METOCLOPRAMIDE INJ 10MG/2ML VIAL IV ONE (10:04)
[2024-05-31 10:22] LABS: HCG, SERUM QUALITATIVE NEGATIVE (NEGATIVE)
[2024-05-31 10:35] LABS: BLOOD UREA NITROGEN 9 MG/DL (9-23); CALCIUM LEVEL 8.4 MG/DL (8.5-10.1); CARBON DIOXIDE LEVEL 26 MMOL/L (20-31); CHLORIDE LEVEL 99 MMOL/L (98-107); CREATININE FOR GFR 0.82 MG/DL (0.55-1.30); GLOMERULAR FILTRATION RATE > 60.0 (>58); GLUCOSE, FASTING 120 MG/DL (60-100); POTASSIUM SERUM 2.7 MMOL/L (3.5-5.1); SODIUM LEVEL 137 MMOL/L (136-145)
[2024-05-31] MEDS: KCL 10MEQ/100ML SWI (KRUN) 10 MEQ in IV 1 EA IV ONE (11:20)
[2024-05-31] MEDS ORDERED: PROMETHAZINE 25MG/ML 1ML VIAL IV ONE (12:10)
[2024-05-31] MEDS: PROMETHAZINE 25MG/ML 1ML VIAL IM ONE (12:44)
[2024-05-31] MEDS: HALOPERIDOL LACTATE 5MG/ML VIAL IV ONE (14:04)
[2024-05-31 15:25] VITALS: TEMP 97.9
[2024-05-31 16:15] VITALS: BP 158/90; O2SAT 99
[2024-05-31] MEDS: POTASSIUM CHLORIDE 10MEQ SR TABLET PO ONE ×2 (16:25)
== END 2024-05-31 16:30 | disposition home or self-care (01) ==
LOC: EDBD 08:48 → M ED 08:48
DX: F12.188 Cannabis abuse with other cannabis-induced disorder (principal); R11.10 Vomiting, unspecified; F17.210 Nicotine dependence, cigarettes, uncomplicated; R00.1 Bradycardia, unspecified; I25.2 Old myocardial infarction; Z88.0 Allergy status to penicillin; Z91.030 Bee allergy status; Z91.011 Allergy to milk products; Z91.018 Allergy to other foods; Z91.013 Allergy to seafood; Z79.899 Other long term (current) drug therapy
CPT/HCPCS: 70450; 80048; 84703; 85027; 93005; 96365; 96366; 96372; 96375; 99285; J1630; J2550; J2765

== ENCOUNTER 2024-06-01 09:25 | Emergency (ER) | payer OTHER ==
[~2024-06-01] VITALS: Ht 154.9 cm; Wt 90.9 kg
[2024-06-01] MEDS: MORPHINE 10 MG/ML 1ML VIAL IM ONE (10:21)
[2024-06-01] MEDS: ONDANSETRON 4MG ORAL DISINTEGRATING TAB PO ONE (10:22)
[2024-06-01 10:46] VITALS: TEMP 97
[2024-06-01 12:30] VITALS: BP 117/69; O2SAT 98
[2024-06-02] MEDS ORDERED: SULF1TAB23 PO (18:00)
== END 2024-06-01 12:45 | disposition home or self-care (01) ==
LOC: EDBD 09:25 → M ED 09:25
DX: S06.0X0A Concussion without loss of consciousness, initial encounter (principal); S13.4XXA Sprain of ligaments of cervical spine, initial encounter; M25.552 Pain in left hip; Y92.9 Unspecified place or not applicable; Y93.9 Activity, unspecified; Y99.9 Unspecified external cause status; W00.0XXA Fall on same level due to ice and snow, initial encounter; Z88.0 Allergy status to penicillin; Z91.030 Bee allergy status; Z91.018 Allergy to other foods; Z79.51 Long term (current) use of inhaled steroids; Z79.899 Other long term (current) drug therapy

== ENCOUNTER 2024-06-02 09:36 | Emergency (ER) | payer OTHER ==
[~2024-06-02] VITALS: Ht 154.9 cm; Wt 90.9 kg
[2024-06-02 10:28] LABS: BASO % 0.2 % (0.0-1.0); EOS % 0.1 % (0.0-3.0); HEMATOCRIT 47.5 % (36.0-47.0); LYMPH # 1.9 10^3/uL (1.5-5.0); LYMPH % 14.5 % (24.0-44.0); MEAN CORPUSCULAR HGB CONC 33.7 g/dl (32.0-36.5); MEAN CORPUSCULAR VOLUME 83.2 fl (80.0-96.0); MONO # 0.7 10^3/uL (0.0-0.8); MONO % 5.1 % (2.0-8.0); NEUTROPHILS # 10.5 10^3/uL (1.5-8.5); NEUTROPHILS % 79.6 % (36.0-66.0); PLATELET COUNT, AUTOMATED 251 10^3/uL (150-450); RED BLOOD COUNT 5.71 10^6/uL (4.00-5.40); WHITE BLOOD COUNT 13.1 10^3/uL (4.0-10.0)
[2024-06-02 11:21] LABS: LIPASE 23 U/L (12-53)
[2024-06-02 11:23] LABS: ALBUMIN 3.7 G/DL (3.2-5.2); ALKALINE PHOSPHATASE 111 U/L (35-104); ALT/SGPT 64 U/L (7.0-40); AST/SGOT 41 U/L (<34); BILIRUBIN,DIRECT 0.5 MG/DL (<0.4); BILIRUBIN,TOTAL 1.5 MG/DL (0.3-1.2); BLOOD UREA NITROGEN 6 MG/DL (9-23); CALCIUM LEVEL 8.7 MG/DL (8.5-10.1); CARBON DIOXIDE LEVEL 25 MMOL/L (20-31); CHLORIDE LEVEL 98 MMOL/L (98-107); CREATININE FOR GFR 0.77 MG/DL (0.55-1.30); GLOMERULAR FILTRATION RATE > 60.0 (>58); GLUCOSE, FASTING 123 MG/DL (60-100); POTASSIUM SERUM 3.1 MMOL/L (3.5-5.1); SODIUM LEVEL 133 MMOL/L (136-145); TOTAL PROTEIN 6.8 G/DL (5.7-8.2)
[2024-06-02 12:47] LABS: KETONE, URINE MANUAL REFLEX 2+ mg/dL (NEGATIVE); PROTEIN, URINE MANUAL REFLEX 2+ mg/dL (NEGATIVE); UROBILINOGEN, UA MANUAL REFLEX 1 MG mg/dl (NORMAL)
[2024-06-02 12:48] LABS: NITRITE, URINE MANUAL RFX POSITIVE (NEGATIVE); URINE COMMENT Y
[2024-06-02 13:01] LABS: RBC, URINE MAN REFLEX TNTC /hpf (0-3); SQUAMOUS EPITHELIAL URINE RFX SMALL AMOUNT /hpf (SMALL AMT); WBC, URINE MAN RFX 15-20 /hpf (0-3)
[2024-06-02 13:02] LABS: HYALINE CAST, URINE RFX NONE SEEN /lpf (0-1); MICROSCOPIC EXAM RFX PERFORMED
[2024-06-02] MEDS: ONDANSETRON 4MG 2ML VIAL IV ONE (15:43)
[2024-06-02] MEDS: KETOROLAC 30 MG/ML 1ML VIAL IV ONE (15:44)
[2024-06-02] MEDS: METOCLOPRAMIDE INJ 10MG/2ML VIAL IV ONE (16:28)
[2024-06-02] MEDS ORDERED: SULF1TAB23 PO (18:00)
[2024-06-02 18:14] VITALS: BP 130/86; TEMP 99.5; O2SAT 99
== END 2024-06-02 18:39 | disposition home or self-care (01) ==
LOC: M ED 09:36 → EDBD 09:36 → M ED 18:39
DX: N30.00 Acute cystitis without hematuria (principal); R11.2 Nausea with vomiting, unspecified; J45.909 Unspecified asthma, uncomplicated; F17.290 Nicotine dependence, other tobacco product, uncomplicated; F12.10 Cannabis abuse, uncomplicated; Z88.0 Allergy status to penicillin; Z91.030 Bee allergy status; Z91.018 Allergy to other foods; Z79.51 Long term (current) use of inhaled steroids; Z79.899 Other long term (current) drug therapy
CPT/HCPCS: 74176; 80048; 80076; 81000; 81015; 83690; 85025; 87088; 87186; 96374; 96375; 99284; J1885; J2405; J2765

== ENCOUNTER 2024-06-03 14:17 | Inpatient (IN) | payer OTHER ==
[~2024-06-03] VITALS: Ht 154.9 cm; Wt 110.8 kg
[~2024-06-03 14:17] MED LIST changes: +SULF1TAB23 PO
[2024-06-03 18:40] LABS: HEMATOCRIT 46.2 % (36.0-47.0); HEMOGLOBIN 15.7 g/dl (12.0-15.5); MEAN CORPUSCULAR HEMOGLOBIN 28.6 pg (27.0-33.0); MEAN CORPUSCULAR VOLUME 84.2 fl (80.0-96.0); PLATELET COUNT, AUTOMATED 250 10^3/uL (150-450); RED BLOOD COUNT 5.49 10^6/uL (4.00-5.40); WHITE BLOOD COUNT 13.1 10^3/uL (4.0-10.0)
[2024-06-03] MEDS ORDERED: HOME MED LIST COMPLETE! XX SCH (18:40)
[2024-06-03 19:01] LABS: ETHYL ALCOHOL (ETHANOL) < 0.003 % (0.000-0.010)
[2024-06-03 19:03] LABS: HCG, SERUM QUALITATIVE NEGATIVE (NEGATIVE)
[2024-06-03 19:04] LABS: CPK CREATINE PHOSPHOKINASE 37 U/L (34-145); SALICYLATE LEVEL < 3.0 MG/DL (<30)
[2024-06-03 19:09] LABS: ALBUMIN 3.8 G/DL (3.2-5.2); ALKALINE PHOSPHATASE 108 U/L (35-104); ALT/SGPT 63 U/L (7.0-40); AST/SGOT 28 U/L (<34); BILIRUBIN,DIRECT 0.5 MG/DL (<0.4); BILIRUBIN,TOTAL 1.5 MG/DL (0.3-1.2); BLOOD UREA NITROGEN 10 MG/DL (9-23); CALCIUM LEVEL 8.7 MG/DL (8.5-10.1); CARBON DIOXIDE LEVEL 26 MMOL/L (20-31); CHLORIDE LEVEL 98 MMOL/L (98-107); CK-MB VALUE MASS < 1.0 NG/ML (<3.6); CREATININE FOR GFR 0.88 MG/DL (0.55-1.30); GLOMERULAR FILTRATION RATE > 60.0 (>58); GLUCOSE, FASTING 107 MG/DL (60-100); SODIUM LEVEL 137 MMOL/L (136-145); THYROID STIMULATING HORMONE 2.779 uIU/ML (0.55-4.78); TOTAL PROTEIN 6.8 G/DL (5.7-8.2)
[2024-06-03 19:13] LABS: AMPHETAMINES LEVEL URINE NEGATIVE (NEGATIVE); BARBITURATES URINE NEGATIVE (NEGATIVE); BENZODIAZEPINES URINE NEGATIVE (NEGATIVE); COCAINE METABOLITE URINE NEGATIVE (NEGATIVE); PHENCYCLIDINE URINE NEGATIVE (NEGATIVE)
[2024-06-03 19:14] LABS: CANNABINOIDS URINE POSITIVE (NEGATIVE); METHADONE URINE POSITIVE (NEGATIVE); OPIATES URINE POSITIVE (NEGATIVE)
[2024-06-03] MEDS: POTASSIUM CHLORIDE 10MEQ SR TABLET PO ONE (19:57)
[2024-06-03 20:37] LABS: CK-MB VALUE MASS < 1.0 NG/ML (<3.6)
[2024-06-03 20:40] LABS: CPK CREATINE PHOSPHOKINASE 34 U/L (34-145); MB/CK RELATIVE INDEX 2.94 (< OR =4)
[2024-06-04] MEDS: METHADONE 10MG TAB PO SCH (09:29)
[2024-06-04] MEDS: ACETAMINOPHEN 325 MG TAB PO PRN (20:26)
[2024-06-05] MEDS: UNRESOLVED CLARIFICATION ENTRY XX SCH (00:01)
[2024-06-05 06:54] VITALS: BP 114/68; TEMP 98.2; O2SAT 99
[2024-06-05] MEDS: NICOTINE 14 MG/24 HR TRANSDERMAL TD SCH (08:17)
[2024-06-05] MEDS: METHADONE 10MG TAB PO SCH (08:56)
[2024-06-05] MEDS: OLANZapine 5 MG TAB PO SCH (10:40)
[2024-06-05] MEDS: IBUPROFEN 400MG TAB PO PRN (10:41)
[2024-06-05 15:46] VITALS: BP 105/65; TEMP 97.3; O2SAT 97
[2024-06-05] MEDS: OLANZapine ORAL DISINTEGRATING TAB 5MG PO PRN (18:27)
[2024-06-05] MEDS: traZODone 50 MG TAB PO PRN (20:57)
[2024-06-06 07:08] VITALS: BP 118/85; TEMP 96.8; O2SAT 100
[2024-06-06 18:11] VITALS: BP 110/72; TEMP 97.8; O2SAT 96
[2024-06-07 07:21] VITALS: BP 143/81; TEMP 98.7; O2SAT 96
[2024-06-07] MEDS: diphenhydrAMINE 25MG CAP PO PRN (13:32)
[2024-06-07 16:15] VITALS: BP 119/83; TEMP 97.6; O2SAT 98
[2024-06-08 06:53] VITALS: BP 150/90; TEMP 98.5; O2SAT 100
[2024-06-08] MEDS: LIDOCAINE 5% (LIDODERM) PATCH TD PRN (12:39)
[2024-06-08 15:47] VITALS: BP 111/79; TEMP 98.2; O2SAT 97
[2024-06-09 06:33] VITALS: BP 98/64; TEMP 98; O2SAT 99
[2024-06-09] MEDS: SERTRALINE HCL 50 MG TAB PO SCH (09:13)
[2024-06-09 14:58] VITALS: BP 120/83; TEMP 96.8; O2SAT 98
[2024-06-10 06:34] VITALS: BP 100/68; TEMP 97.8; O2SAT 100
[2024-06-10] MEDS: MOM 30ML SUSPENSION UDC PO PRN (09:57)
[2024-06-10] MEDS: LORazepam 1 MG TAB PO PRN (10:25)
[2024-06-10] MEDS: DOCUSATE SODIUM 100MG CAPSULE PO PRN (12:53)
[2024-06-10] MEDS: LOPERAMIDE 2 MG CAPLET PO PRN (14:55)
[2024-06-10 17:17] VITALS: BP 117/80; TEMP 98.4; O2SAT 100
[2024-06-11 06:13] VITALS: BP 94/59; TEMP 97.7; O2SAT 98
[2024-06-11 15:59] VITALS: BP 117/82; TEMP 97.4; O2SAT 97
[2024-06-12 07:15] VITALS: BP 104/64; TEMP 98.2; O2SAT 97
[2024-06-12 15:19] VITALS: BP 111/85; TEMP 97.6; O2SAT 99
[2024-06-13 06:57] VITALS: BP 117/70; TEMP 98.8; O2SAT 96
[2024-06-13] MEDS: MAALOX 30 ML SUSP *UDC PO PRN (14:05)
[2024-06-14 06:40] VITALS: BP 112/71; TEMP 97.3; O2SAT 96
[2024-06-14 16:11] VITALS: BP 123/86; TEMP 97.8
[2024-06-15 06:38] VITALS: BP 122/73; TEMP 97.3; O2SAT 100
[2024-06-15] MEDS: SODIUM CHLORIDE NASAL 0.65% SPRAY BTL (OCEAN) PRN (11:06)
[2024-06-15] MEDS: CEPACOL LOZENGE PO PRN (15:03)
[2024-06-15 16:27] VITALS: BP 115/81; TEMP 97.6; O2SAT 98
[2024-06-16 06:38] VITALS: BP 102/69; TEMP 97.3; O2SAT 96
[2024-06-16 17:43] VITALS: BP 128/88; TEMP 97; O2SAT 100
[2024-06-17 06:29] VITALS: BP 120/77; TEMP 97; O2SAT 98
[2024-06-17] MEDS: ALBUTEROL 90 MCG/ACT 8GM HFA INHALER INH PRN (11:01)
[2024-06-17 16:58] VITALS: BP 110/69; TEMP 97.8; O2SAT 98
[2024-06-18 06:32] VITALS: BP 101/68; TEMP 97; O2SAT 96
[2024-06-18 15:48] VITALS: BP 129/66; TEMP 97.4; O2SAT 97
[2024-06-19 06:41] VITALS: BP 123/81; TEMP 97.2; O2SAT 100
[2024-06-19 16:25] VITALS: BP 117/58; TEMP 98.5; O2SAT 97
[2024-06-20 16:42] VITALS: BP 122/73; TEMP 98.7; O2SAT 96
[2024-06-21 06:29] VITALS: BP 136/73; TEMP 97; O2SAT 97
[2024-06-21 16:02] VITALS: BP 110/80; TEMP 98.3; O2SAT 98
[2024-06-21 16:43] LABS: BLOOD UREA NITROGEN 12 MG/DL (9-23); CALCIUM LEVEL 8.3 MG/DL (8.5-10.1); CARBON DIOXIDE LEVEL 26 MMOL/L (20-31); CHLORIDE LEVEL 108 MMOL/L (98-107); CREATININE FOR GFR 0.78 MG/DL (0.55-1.30); GLOMERULAR FILTRATION RATE > 60.0 (>58); GLUCOSE, FASTING 100 MG/DL (60-100); POTASSIUM SERUM 4.3 MMOL/L (3.5-5.1); SODIUM LEVEL 143 MMOL/L (136-145)
[2024-06-22 06:40] VITALS: BP 123/75; TEMP 96.9; O2SAT 100
[2024-06-22] MEDS: FUROSEMIDE 10MG PER 1/2 TABLET PO SCH (08:23)
[2024-06-22 15:37] VITALS: BP 109/76; TEMP 98; O2SAT 98
[2024-06-23 06:36] VITALS: BP 111/77; TEMP 97; O2SAT 96
[2024-06-23] MEDS ORDERED: LIDO5TD TD (08:07)
[2024-06-23] MEDS ORDERED: BENZ1LOZ9 PO (08:07)
[2024-06-23] MEDS ORDERED: Sodium Chloride Nasal Spray (08:07)
[2024-06-23] MEDS ORDERED: TRAZ-252 PO (08:07)
[2024-06-23] MEDS ORDERED: OLAN1TAB16 PO (08:07)
[2024-06-23] MEDS ORDERED: FURO20TA2 PO (08:07)
[2024-06-23] MEDS ORDERED: SERT50TA29 PO (08:07)
== END 2024-06-23 13:50 | disposition home or self-care (01) | DRG 753 ==
LOC: M ED 14:17 → M ED INP 06-04 12:57 → M PSY 06-04 14:42
PROVIDERS: ADMIT Psychiatry & Neurology Psychiatry; ATTEND Psychiatry & Neurology Psychiatry
DX: F31.9 Bipolar disorder, unspecified (principal); Z68.42 Body mass index [BMI] 45.0-49.9, adult; R45.851 Suicidal ideations; E66.01 Morbid (severe) obesity due to excess calories; F90.9 Attention-deficit hyperactivity disorder, unspecified type; F43.10 Post-traumatic stress disorder, unspecified; M79.671 Pain in right foot; G89.29 Other chronic pain; Z91.51 Personal history of suicidal behavior; Z59.01 Sheltered homelessness; Z56.0 Unemployment, unspecified; Z79.899 Other long term (current) drug therapy; Z88.0 Allergy status to penicillin; Z88.8 Allergy status to other drugs, medicaments and biological substances; Z91.013 Allergy to seafood; Z91.018 Allergy to other foods; Z91.030 Bee allergy status; Z81.8 Family history of other mental and behavioral disorders

== ENCOUNTER 2024-07-20 14:48 | Emergency (ER) | payer MEDICAID, OTHER ==
[~2024-07-20] VITALS: Ht 162.6 cm; Wt 108.1 kg
[~2024-07-20 14:48] MED LIST changes: +BENZ1LOZ9 PO; +FURO20TA2 PO; +OLAN1TAB16 PO; +SERT50TA29 PO; +Sodium Chloride Nasal Spray
[2024-07-20] MEDS: ACETAMINOPHEN 325 MG TAB PO ONE (16:44)
[2024-07-20] MEDS: KETOROLAC 30 MG/ML 1ML VIAL IM ONE (16:45)
[2024-07-20] MEDS ORDERED: KETO10TAB PO (17:31)
[2024-07-20 17:41] VITALS: BP 155/73; TEMP 97.1; O2SAT 99
== END 2024-07-20 17:48 | disposition home or self-care (01) ==
LOC: M ED 14:48
DX: S39.012A Strain of muscle, fascia and tendon of lower back, initial encounter (principal); M51.360 Other intervertebral disc degeneration, lumbar region with discogenic back pain only; Y92.9 Unspecified place or not applicable; Y93.9 Activity, unspecified; Y99.9 Unspecified external cause status; J45.909 Unspecified asthma, uncomplicated; F17.210 Nicotine dependence, cigarettes, uncomplicated; Z88.0 Allergy status to penicillin; Z91.013 Allergy to seafood; Z91.011 Allergy to milk products; Z91.030 Bee allergy status; Z91.018 Allergy to other foods; Z79.899 Other long term (current) drug therapy
CPT/HCPCS: 96372; 99283; J1885

== ENCOUNTER 2024-08-17 07:03 | Emergency (ER) | payer MEDICAID, OTHER ==
[~2024-08-17] VITALS: Ht 162.6 cm; Wt 108.1 kg
[2024-08-17] MEDS ORDERED: HALOPERIDOL LACTATE 5MG/ML VIAL IV ONE (08:05)
[2024-08-17] MEDS: HALOPERIDOL LACTATE 5MG/ML VIAL IV ONE (08:31)
[2024-08-17 08:48] LABS: BASO % 0.1 % (0.0-1.0); EOS % 0.1 % (0.0-3.0); HEMATOCRIT 42.4 % (36.0-47.0); HEMOGLOBIN 13.9 g/dl (12.0-15.5); LYMPH # 0.4 10^3/uL (1.5-5.0); LYMPH % 3.1 % (24.0-44.0); MEAN CORPUSCULAR HGB CONC 32.8 g/dl (32.0-36.5); MEAN CORPUSCULAR VOLUME 85.3 fl (80.0-96.0); MONO # 0.4 10^3/uL (0.0-0.8); MONO % 2.8 % (2.0-8.0); NEUTROPHILS # 12.9 10^3/uL (1.5-8.5); NEUTROPHILS % 93.4 % (36.0-66.0); PLATELET COUNT, AUTOMATED 195 10^3/uL (150-450); RED BLOOD COUNT 4.97 10^6/uL (4.00-5.40); WHITE BLOOD COUNT 13.8 10^3/uL (4.0-10.0)
[2024-08-17 09:21] LABS: LIPASE 17 U/L (12-53)
[2024-08-17 09:22] LABS: HCG, SERUM QUALITATIVE NEGATIVE (NEGATIVE)
[2024-08-17 09:23] LABS: ALBUMIN 3.4 G/DL (3.2-5.2); ALKALINE PHOSPHATASE 113 U/L (35-104); ALT/SGPT 10 U/L (7.0-40); AST/SGOT 11 U/L (<34); BILIRUBIN,DIRECT 0.3 MG/DL (<0.4); BLOOD UREA NITROGEN 10 MG/DL (9-23); CALCIUM LEVEL 8.2 MG/DL (8.5-10.1); CARBON DIOXIDE LEVEL 24 MMOL/L (20-31); CHLORIDE LEVEL 107 MMOL/L (98-107); CREATININE FOR GFR 0.76 MG/DL (0.55-1.30); GLOMERULAR FILTRATION RATE > 90.0 (>58); GLUCOSE, FASTING 179 MG/DL (60-100); POTASSIUM SERUM 3.5 MMOL/L (3.5-5.1); SODIUM LEVEL 143 MMOL/L (136-145); TOTAL PROTEIN 6.5 G/DL (5.7-8.2)
[2024-08-17 13:12] VITALS: BP 133/92; TEMP 98.4; O2SAT 94
== END 2024-08-17 14:19 | disposition home or self-care (01) ==
LOC: M ED 07:03 → EDBD 07:03 → M ED 14:19
DX: F12.188 Cannabis abuse with other cannabis-induced disorder (principal); F41.9 Anxiety disorder, unspecified; F32.A Depression, unspecified; Z88.0 Allergy status to penicillin; Z88.8 Allergy status to other drugs, medicaments and biological substances; Z91.030 Bee allergy status; Z91.013 Allergy to seafood; Z91.018 Allergy to other foods; Z79.899 Other long term (current) drug therapy
CPT/HCPCS: 74176; 80048; 80076; 83690; 84703; 85025; 93005; 96374; 99284; J1630

== ENCOUNTER 2024-08-19 10:45 | Emergency (ER) | payer OTHER ==
[~2024-08-19] VITALS: Ht 162.6 cm; Wt 102.3 kg
[2024-08-19] MEDS ORDERED: REXU1TAB4 (10:56)
[2024-08-19] MEDS ORDERED: DULO1CAP5 (10:56)
[2024-08-19] MEDS: LEVALBUTEROL 1.25 MG 0.5ML CONCENTRATE NEB NEB PRN (12:01)
[2024-08-19 12:05] LABS: BASO % 0.3 % (0.0-1.0); EOS % 0.3 % (0.0-3.0); HEMATOCRIT 46.3 % (36.0-47.0); HEMOGLOBIN 15.4 g/dl (12.0-15.5); LYMPH # 1.6 10^3/uL (1.5-5.0); LYMPH % 41.9 % (24.0-44.0); MEAN CORPUSCULAR HEMOGLOBIN 28.4 pg (27.0-33.0); MEAN CORPUSCULAR HGB CONC 33.3 g/dl (32.0-36.5); MEAN CORPUSCULAR VOLUME 85.3 fl (80.0-96.0); MONO # 0.5 10^3/uL (0.0-0.8); MONO % 13.6 % (2.0-8.0); NEUTROPHILS # 1.6 10^3/uL (1.5-8.5); NEUTROPHILS % 43.6 % (36.0-66.0); PLATELET COUNT, AUTOMATED 190 10^3/uL (150-450); RED BLOOD COUNT 5.43 10^6/uL (4.00-5.40); WHITE BLOOD COUNT 3.8 10^3/uL (4.0-10.0)
[2024-08-19 12:32] LABS: CPK CREATINE PHOSPHOKINASE 68 U/L (34-145)
[2024-08-19 12:54] LABS: BLOOD UREA NITROGEN 10 MG/DL (9-23); CALCIUM LEVEL 8.4 MG/DL (8.5-10.1); CARBON DIOXIDE LEVEL 26 MMOL/L (20-31); CHLORIDE LEVEL 102 MMOL/L (98-107); CK-MB VALUE MASS < 1.0 NG/ML (<3.6); CREATININE FOR GFR 0.85 MG/DL (0.55-1.30); GLOMERULAR FILTRATION RATE 88.2 (>58); GLUCOSE, FASTING 85 MG/DL (60-100); MB/CK RELATIVE INDEX 1.47 (< OR =4); POTASSIUM SERUM 2.9 MMOL/L (3.5-5.1); SODIUM LEVEL 138 MMOL/L (136-145)
[2024-08-19] MEDS: POTASSIUM CHLORIDE 10MEQ SR TABLET PO ONE (13:16)
[2024-08-19] MEDS: KCL 10MEQ/100ML SWI (KRUN) 10 MEQ in IV 1 EA IV ONE (13:17)
[2024-08-19] MEDS ORDERED: POTA-150 PO (15:05)
[2024-08-19] MEDS ORDERED: VENTAER INH (15:05)
[2024-08-19 15:15] VITALS: BP 121/78; TEMP 97.4; O2SAT 99
== END 2024-08-19 15:30 | disposition home or self-care (01) ==
LOC: M ED 10:45
DX: J09.X2 Influenza due to identified novel influenza A virus with other respiratory manifestations (principal); E87.6 Hypokalemia; R00.0 Tachycardia, unspecified; J45.909 Unspecified asthma, uncomplicated; F17.290 Nicotine dependence, other tobacco product, uncomplicated; F19.10 Other psychoactive substance abuse, uncomplicated; Z88.0 Allergy status to penicillin; Z91.030 Bee allergy status; Z91.013 Allergy to seafood; Z91.018 Allergy to other foods; Z91.011 Allergy to milk products; Z79.51 Long term (current) use of inhaled steroids; Z79.899 Other long term (current) drug therapy

== ENCOUNTER → 2024-08-25 | Outpatient (REF) ==
[~2024-08-25] MED LIST changes: +DULO1CAP5; -FLOM0.4C39 PO; -NYST-13 TOP; +NYST0.1C TOP; +POTA-150 PO; +REXU1TAB4; +TAMS-18 PO
== END ==
LOC: M PLAIMG 08:57
PROVIDERS: ATTEND Internal Medicine
DX: M54.50 Low back pain, unspecified (principal)

== ENCOUNTER 2024-09-17 15:24 | Emergency (ER) | payer OTHER ==
[~2024-09-17] VITALS: Ht 157.5 cm; Wt 102.7 kg
[2024-09-17 15:35] VITALS: TEMP 98.5; O2SAT 98
[2024-09-17] MEDS: KETOROLAC 30 MG/ML 1ML VIAL IM ONE (18:55)
[2024-09-17] MEDS: ACETAMINOPHEN 500 MG TAB PO ONE (18:55)
[2024-09-17] MEDS: diazePAM 5MG TABLET PO ONE (18:55)
[2024-09-17 19:05] LABS: KETONE, URINE AUTO RFX TRACE mg/dL (NEGATIVE); LEUKOCYTE ESTERASE UR AUTO RFX NEGATIVE (NEGATIVE); MUCUS, URINE RFX SMALL (NEGATIVE); NITRITE, URINE AUTO RFX NEGATIVE (NEGATIVE); RBC, URINE AUTO RFX 4 /HPF (0-3); SQUAM EPITHELIAL CELL UR AURFX 3 /HPF (0-6); WBC, URINE AUTO RFX 1 /HPF (0-3)
[2024-09-17] MEDS ORDERED: CYCL-707 PO (19:37)
[2024-09-17] MEDS ORDERED: MEDR4PAK PO (19:37)
[2024-09-17 19:47] VITALS: BP 109/76
== END 2024-09-17 20:04 | disposition home or self-care (01) ==
LOC: EDBD 15:24 → M ED 15:24
DX: M41.9 Scoliosis, unspecified (principal); S39.012A Strain of muscle, fascia and tendon of lower back, initial encounter; Y92.9 Unspecified place or not applicable; Y93.9 Activity, unspecified; Y99.9 Unspecified external cause status; R00.0 Tachycardia, unspecified; I25.2 Old myocardial infarction; F17.290 Nicotine dependence, other tobacco product, uncomplicated; F12.10 Cannabis abuse, uncomplicated; Z88.0 Allergy status to penicillin; Z91.030 Bee allergy status; Z91.011 Allergy to milk products; Z91.013 Allergy to seafood; Z91.018 Allergy to other foods; Z79.51 Long term (current) use of inhaled steroids; Z79.899 Other long term (current) drug therapy
CPT/HCPCS: 81001; 93005; 96372; 99284; J1885

== ENCOUNTER → 2024-11-07 | Outpatient (REF) | payer MEDICAID ==
[~2024-11-07] MED LIST changes: +CYCL-707 PO; +MEDR4PAK PO
[2024-11-07 13:28] LABS: CALCIUM LEVEL 9.2 MG/DL (8.5-10.1); CARBON DIOXIDE LEVEL 26.0 MMOL/L (20-31); CHLORIDE LEVEL 106.0 MMOL/L (98-107); CHOLESTEROL LEVEL 178.0 MG/DL (<200); CHOLESTEROL RISK RATIO 5.23 (<5); CREATININE FOR GFR 0.88 MG/DL (0.55-1.30); GLOMERULAR FILTRATION RATE 84.6 (>58); LDL CHOLESTEROL 115.0 MG/DL (<100); NON-HDL-C 144.0 MG/DL; POTASSIUM SERUM 4.0 MMOL/L (3.5-5.1); SODIUM LEVEL 146.0 MMOL/L (136-145); TRIGLYCERIDES LEVEL 145.0 MG/DL (<150)
== END ==
LOC: M LAB REF 12:27
PROVIDERS: ATTEND Nurse Practitioner Family
DX: E87.6 Hypokalemia (principal); E78.00 Pure hypercholesterolemia, unspecified

== ENCOUNTER → 2024-11-09 | Outpatient (CLI) | payer MEDICAID, OTHER ==
[2024-11-09 08:46] LABS: PLATELET COUNT, AUTOMATED 235 10^3/uL (150-450)
[2024-11-09 09:13] LABS: ALT/SGPT 12 U/L (7.0-40); AST/SGOT 14 U/L (<34); CALCIUM LEVEL 8.9 MG/DL (8.5-10.1); CARBON DIOXIDE LEVEL 27 MMOL/L (20-31); CHLORIDE LEVEL 107 MMOL/L (98-107); CREATININE FOR GFR 0.86 MG/DL (0.55-1.30); GLOMERULAR FILTRATION RATE 87.0 (>58); POTASSIUM SERUM 3.9 MMOL/L (3.5-5.1); SODIUM LEVEL 144 MMOL/L (136-145)
[2024-11-09 09:40] LABS: HIV 1&2 SCREEN NEGATIVE (NEGATIVE)
[2024-11-09 09:47] LABS: HEPATITIS C VIRUS ABY INDEX 0.08 INDEX (<0.8)
[2024-11-09 11:20] LABS: GC DNA AMPLIFICATION NEGATIVE (NEGATIVE)
== END ==
LOC: M LAB 07:55
PROVIDERS: ATTEND Family Medicine
DX: F11.20 Opioid dependence, uncomplicated (principal)

== ENCOUNTER 2024-12-08 09:50 | Emergency (ER) | payer OTHER ==
[~2024-12-08] VITALS: Ht 162.6 cm; Wt 101.4 kg
[2024-12-08 09:57] VITALS: BP 129/95; O2SAT 97
[2024-12-08] MEDS ORDERED: LUMA21CA (10:12)
[2024-12-08] MEDS ORDERED: MIRT1TAB (10:12)
[2024-12-08] MEDS ORDERED: OMEP1CAP71 (10:12)
[2024-12-08] MEDS ORDERED: DULO1CAP6 (10:12)
[2024-12-08] MEDS ORDERED: CLON-412 (10:12)
[2024-12-08] MEDS ORDERED: CYCL-707 PO (10:12)
[2024-12-08] MEDS ORDERED: ONDANSETRON 4MG 2ML VIAL As Ordered ONE (11:02)
[2024-12-08] MEDS: ONDANSETRON 4MG 2ML VIAL IV ONE (11:09)
[2024-12-08] MEDS: NS (Normal Saline) 0.9% 1,000 ML IV ONE (11:09)
[2024-12-08 11:51] LABS: BASO # 0.0 10^3/uL (0.0-0.2); BASO % 0.2 % (0.0-1.0); EOS # 0.1 10^3/uL (0.0-0.5); EOS % 1.2 % (0.0-3.0); LYMPH # 2.3 10^3/uL (1.5-5.0); LYMPH % 34.7 % (24.0-44.0); MONO # 0.3 10^3/uL (0.0-0.8); MONO % 4.2 % (2.0-8.0); NEUTROPHILS # 4.0 10^3/uL (1.5-8.5); NEUTROPHILS % 59.4 % (36.0-66.0); PLATELET COUNT, AUTOMATED 184 10^3/uL (150-450)
[2024-12-08 12:19] LABS: CALCIUM LEVEL 7.8 MG/DL (8.5-10.1); CARBON DIOXIDE LEVEL 25 MMOL/L (20-31); CHLORIDE LEVEL 109 MMOL/L (98-107); CREATININE FOR GFR 0.80 MG/DL (0.55-1.30); GLOMERULAR FILTRATION RATE > 90.0 (>58); POTASSIUM SERUM 3.4 MMOL/L (3.5-5.1); SODIUM LEVEL 143 MMOL/L (136-145)
[2024-12-08 13:05] LABS: MAGNESIUM LEVEL 1.8 MG/DL (1.8-2.4)
[2024-12-08 13:41] VITALS: TEMP 96.7
== END 2024-12-08 13:49 | disposition home or self-care (01) ==
LOC: M ED 09:50
DX: R42 Dizziness and giddiness (principal); J45.909 Unspecified asthma, uncomplicated; F17.290 Nicotine dependence, other tobacco product, uncomplicated; F12.10 Cannabis abuse, uncomplicated; Z88.0 Allergy status to penicillin; Z91.013 Allergy to seafood; Z91.030 Bee allergy status; Z91.011 Allergy to milk products; Z91.018 Allergy to other foods; Z79.51 Long term (current) use of inhaled steroids; Z79.899 Other long term (current) drug therapy
CPT/HCPCS: 80048; 83735; 85025; 96361; 96374; 99284; J2405

== ENCOUNTER 2024-12-28 16:11 | Emergency (ER) | payer OTHER ==
[~2024-12-28] VITALS: Ht 162.6 cm; Wt 102.7 kg
[~2024-12-28 16:11] MED LIST changes: +CLON-412; +DULO1CAP6; -IBUP-1022 PO; +IBUP600T42 PO; +LUMA21CA; +MIRT1TAB; +OMEP1CAP71
[2024-12-28 19:18] VITALS: BP 117/57; TEMP 97.2; O2SAT 97
== END 2024-12-28 19:22 | disposition home or self-care (01) ==
LOC: EDBD 16:11 → M ED 16:11
DX: R51.9 Headache, unspecified (principal); F31.9 Bipolar disorder, unspecified; F12.10 Cannabis abuse, uncomplicated; F17.200 Nicotine dependence, unspecified, uncomplicated; Z88.0 Allergy status to penicillin; Z91.011 Allergy to milk products; Z91.030 Bee allergy status; Z91.09 Other allergy status, other than to drugs and biological substances; Z79.52 Long term (current) use of systemic steroids; Z79.899 Other long term (current) drug therapy
CPT/HCPCS: 96372; 99284; J3030

== ENCOUNTER 2025-01-18 14:04 | Emergency (ER) | payer OTHER ==
[~2025-01-18] VITALS: Ht 162.6 cm; Wt 99.5 kg
[2025-01-18 15:25] LABS: BASO # 0.0 10^3/uL (0.0-0.2); BASO % 0.1 % (0.0-1.0); EOS # 0.0 10^3/uL (0.0-0.5); EOS % 0.0 % (0.0-3.0); LYMPH # 1.4 10^3/uL (1.5-5.0); LYMPH % 8.0 % (24.0-44.0); MONO # 0.5 10^3/uL (0.0-0.8); MONO % 2.9 % (2.0-8.0); NEUTROPHILS # 14.9 10^3/uL (1.5-8.5); NEUTROPHILS % 88.6 % (36.0-66.0); PLATELET COUNT, AUTOMATED 225 10^3/uL (150-450)
[2025-01-18] MEDS: ONDANSETRON 4MG 2ML VIAL IV ONE (15:52)
[2025-01-18 15:54] LABS: ALT/SGPT 15 U/L (7.0-40); AST/SGOT 15 U/L (<34); CALCIUM LEVEL 9.1 MG/DL (8.5-10.1); CARBON DIOXIDE LEVEL 19 MMOL/L (20-31); CHLORIDE LEVEL 111 MMOL/L (98-107); CREATININE FOR GFR 0.74 MG/DL (0.55-1.30); GLOMERULAR FILTRATION RATE > 90.0 (>58); POTASSIUM SERUM 3.6 MMOL/L (3.5-5.1); SODIUM LEVEL 143 MMOL/L (136-145)
[2025-01-18 17:48] LABS: MAGNESIUM LEVEL 1.8 MG/DL (1.8-2.4)
[2025-01-18] MEDS: HALOPERIDOL LACTATE 5 MG/ML VIAL IV ONE ×2 (18:05→20:58)
[2025-01-18] MEDS: LR 1,000 ML IV ONE (18:05)
[2025-01-18 21:20] LABS: KETONE, URINE AUTO RFX 1+ mg/dL (NEGATIVE); MUCUS, URINE RFX SMALL (NEGATIVE); NITRITE, URINE AUTO RFX NEGATIVE (NEGATIVE); RBC, URINE AUTO RFX TNTC /HPF (0-3); SQUAM EPITHELIAL CELL UR AURFX 12 /HPF (0-6)
[2025-01-18 21:26] LABS: LEUKOCYTE ESTERASE UR AUTO RFX 2+ (NEGATIVE); WBC, URINE AUTO RFX 88 /HPF (0-3)
[2025-01-18 21:42] LABS: AMPHETAMINES LEVEL URINE NEGATIVE (NEGATIVE); BARBITURATES URINE NEGATIVE (NEGATIVE); BENZODIAZEPINES URINE NEGATIVE (NEGATIVE); COCAINE METABOLITE URINE NEGATIVE (NEGATIVE); METHADONE URINE NEGATIVE (NEGATIVE); OPIATES URINE NEGATIVE (NEGATIVE); PHENCYCLIDINE URINE NEGATIVE (NEGATIVE)
[2025-01-18 21:43] LABS: CANNABINOIDS URINE POSITIVE (NEGATIVE)
[2025-01-18] MEDS ORDERED: ONDA-282 PO (23:46)
[2025-01-18 23:58] VITALS: BP 128/86; TEMP 98.1; O2SAT 97
== END 2025-01-19 00:12 | disposition home or self-care (01) ==
LOC: M ED 15:08
DX: A09 Infectious gastroenteritis and colitis, unspecified (principal); F12.188 Cannabis abuse with other cannabis-induced disorder; G47.33 Obstructive sleep apnea (adult) (pediatric); F43.10 Post-traumatic stress disorder, unspecified; F17.210 Nicotine dependence, cigarettes, uncomplicated; F15.10 Other stimulant abuse, uncomplicated; Z88.0 Allergy status to penicillin; Z91.018 Allergy to other foods; Z91.030 Bee allergy status; Z91.011 Allergy to milk products; Z79.51 Long term (current) use of inhaled steroids; Z79.899 Other long term (current) drug therapy
CPT/HCPCS: 74176; 80053; 80307; 81001; 83735; 85025; 87086; 87486; 87581; 87633; 87798; 96374; 96375; 99285; J1630; J2405

== ENCOUNTER → 2025-02-07 | Outpatient (REF) | payer OTHER, MEDICAID ==
[2025-02-07 14:27] LABS: ESTIMATED AVERAGE GLUCOSE 100.0 MG/DL (60-110)
[2025-02-07 14:34] LABS: BASO # 0.0 10^3/uL (0.0-0.2); BASO % 0.1 % (0.0-1.0); EOS # 0.0 10^3/uL (0.0-0.5); EOS % 0.0 % (0.0-3.0); LYMPH # 2.8 10^3/uL (1.5-5.0); LYMPH % 29.7 % (24.0-44.0); MONO # 0.4 10^3/uL (0.0-0.8); MONO % 4.4 % (2.0-8.0); NEUTROPHILS # 6.1 10^3/uL (1.5-8.5); NEUTROPHILS % 65.6 % (36.0-66.0); PLATELET COUNT, AUTOMATED 240 10^3/uL (150-450)
[2025-02-07 15:50] LABS: CALCIUM LEVEL 8.5 MG/DL (8.5-10.1); CARBON DIOXIDE LEVEL 26 MMOL/L (20-31); CHLORIDE LEVEL 107 MMOL/L (98-107); CHOLESTEROL LEVEL 199 MG/DL (<200); CHOLESTEROL RISK RATIO 4.25 (<5); CREATININE FOR GFR 0.77 MG/DL (0.55-1.30); GLOMERULAR FILTRATION RATE > 90.0 (>58); LDL CHOLESTEROL 123.8 MG/DL (<100); NON-HDL-C 152.2 MG/DL; POTASSIUM SERUM 4.3 MMOL/L (3.5-5.1); SODIUM LEVEL 144 MMOL/L (136-145); TRIGLYCERIDES LEVEL 142 MG/DL (<150)
== END ==
LOC: M LAB REF 12:36
PROVIDERS: ATTEND Nurse Practitioner Family
DX: E66.9 Obesity, unspecified (principal); D72.829 Elevated white blood cell count, unspecified; R00.0 Tachycardia, unspecified; E78.00 Pure hypercholesterolemia, unspecified

== ENCOUNTER 2025-02-25 17:13 | Emergency (ER) | payer OTHER ==
[2025-02-25 17:52] LABS: BASO # 0.0 10^3/uL (0.0-0.2); BASO % 0.1 % (0.0-1.0); EOS # 0.0 10^3/uL (0.0-0.5); EOS % 0.0 % (0.0-3.0); LYMPH # 2.4 10^3/uL (1.5-5.0); LYMPH % 25.5 % (24.0-44.0); MONO # 0.8 10^3/uL (0.0-0.8); MONO % 8.2 % (2.0-8.0); NEUTROPHILS # 6.3 10^3/uL (1.5-8.5); NEUTROPHILS % 66.0 % (36.0-66.0); PLATELET COUNT, AUTOMATED 226 10^3/uL (150-450)
[2025-02-25 18:26] LABS: ALT/SGPT 13 U/L (7.0-40); AST/SGOT 16 U/L (<34); CALCIUM LEVEL 8.1 MG/DL (8.5-10.1); CARBON DIOXIDE LEVEL 23 MMOL/L (20-31); CHLORIDE LEVEL 108 MMOL/L (98-107); CREATININE FOR GFR 0.74 MG/DL (0.55-1.30); GLOMERULAR FILTRATION RATE > 90.0 (>58); POTASSIUM SERUM 3.7 MMOL/L (3.5-5.1); SODIUM LEVEL 143 MMOL/L (136-145)
[2025-02-25] MEDS: IPRATROPIUM 0.5 MG/ALBUTEROL 2.5 MG INH SOL UD 3 ML NEB ONE (20:02)
[2025-02-25] MEDS: ACETAMINOPHEN 500 MG TAB PO ONE (20:27)
[2025-02-25 21:15] VITALS: BP 99/59; TEMP 99.2; O2SAT 96
[2025-02-25] MEDS ORDERED: PRED20TA PO (21:16)
[2025-02-25] MEDS ORDERED: BENZ200C70 PO (21:16)
[2025-02-25] MEDS ORDERED: ALBU2.5V10 NEB (21:16)
== END 2025-02-25 21:27 | disposition home or self-care (01) ==
LOC: M ED 17:13 → EDBD 17:13 → M ED 21:27
DX: R06.02 Shortness of breath (principal); B34.1 Enterovirus infection, unspecified; R00.0 Tachycardia, unspecified; J45.909 Unspecified asthma, uncomplicated; Z88.0 Allergy status to penicillin; Z88.8 Allergy status to other drugs, medicaments and biological substances; Z91.030 Bee allergy status; Z91.018 Allergy to other foods; Z91.013 Allergy to seafood; Z91.0110 Allergy to milk products, unspecified; Z79.51 Long term (current) use of inhaled steroids; Z79.899 Other long term (current) drug therapy; Z79.52 Long term (current) use of systemic steroids